=== PATIENT | female | born 1985 | race African-American/Black ===

== ENCOUNTER 2016-06-02 20:28 | Emergency (ER) | payer OTHER ==
--- NOTE | 2016-06-02 20:53 | ER Document Report ---
ED Medical Screen (RME) - General Stated Complaint: STOMACH PAIN Time seen by provider: 20:49 Mode of Arrival: Ambulatory Information source: Patient Notes: 31-year-old female presents to ED for back pain and abdominal pain since last week. States she's been nauseated for the last week with diarrhea no vomiting. Patient denies fever. States she is having some breast tenderness. Last menstrual period she is on Deprol shot. States her next shot is due now. Patient states she is still breast-feeding her son who is a-year-old. I have greeted and performed a rapid initial assessment of this patient. A comprehensive ED assessment and evaluation of the patient, analysis of test results and completion of medical decision making process will be conducted by an additional ED providers. TRAVEL OUTSIDE OF THE [place] IN LAST 30 DAYS: No - Related Data Allergies/Adverse Reactions: No Known Allergies Allergy (Verified 03/02/16 17:45) Past Medical History - Past Medical History Cardiac Medical History: Reports: Hx Hypertension Past Surgical History: Reports: Hx Section - Immunizations Hx Diphtheria, Pertussis, Tetanus Vaccination: Yes Physical Exam - Vital signs Vitals: Temp Pulse Resp BP Pulse Ox 98.8 F 96 16 105/91 H 100 06/02/16 20:45 06/02/16 20:45 06/02/16 20:45 06/02/16 20:45 06/02/16 20:45 Course - Vital Signs Vital signs: Temp Pulse Resp BP Pulse Ox 98.8 F 96 16 105/91 H 100 06/02/16 20:45 06/02/16 20:45 06/02/16 20:45 06/02/16 20:45 06/02/16 20:45
[2016-06-02 21:17] LABS: ABSOLUTE BASOPHILS # (AUTO) 0.1 10^3/uL (0.0-0.2); ABSOLUTE EOSINOPHILS # (AUTO) 0.3 10^3/uL (0.0-0.6); ABSOLUTE LYMPHOCYTES (AUTO) 4.4 10^3/uL (0.5-4.7); ABSOLUTE MONOCYTES (AUTO) 0.9 10^3/uL (0.1-1.4); ABSOLUTE NEUT (AUTO) 4.9 10^3/uL (1.7-8.2); BASOPHILS % (AUTO) 0.8 % (0-2); EOSINOPHILS % (AUTO) 2.4 % (0-6); HEMATOCRIT 39.1 % (36.0-47.0); HEMOGLOBIN 12.9 g/dL (12.0-15.5); HGB HCT DIFFERENCE -0.4; LYMPHOCYTES % (AUTO) 41.4 % (13-45); MEAN CORPUSCULAR HEMOGLOBIN 27.4 pg (27.0-33.4); MEAN CORPUSCULAR HGB CONC 33.1 g/dL (32.0-36.0); MEAN CORPUSCULAR VOLUME 83 fl (80-97); RED BLOOD COUNT 4.72 10^6/uL (3.72-5.28); RED CELL DISTRIBUTION WIDTH 13.6 % (11.5-14.0); SEGMENTED NEUTROPHILS % (AUTO) 46.4 % (42-78); WHITE BLOOD COUNT 10.6 10^3/uL (4.0-10.5)
[2016-06-02 21:18] LABS: APPEARANCE,URINE SLIGHTLY-CLOUDY; BILIRUBIN,URINE NEGATIVE (NEGATIVE); GLUCOSE, URINE NEGATIVE (NEGATIVE); KETONES,URINE NEGATIVE (NEGATIVE); LEUKOCYTE ESTERASE,URINE NEGATIVE (NEGATIVE); NITRITE,URINE NEGATIVE (NEGATIVE); PROTEIN,URINE NEGATIVE (NEGATIVE); URINE SPECIFIC GRAVITY 1.012; UROBILINOGEN,URINE NEGATIVE mg/dL (<2.0)
[2016-06-02 21:34] LABS: ALANINE AMINOTRANSFERASE 29 U/L (9-52); ALBUMIN 4.4 g/dL (3.5-5.0); ALKALINE PHOSPHATASE 106 U/L (38-126); ANION GAP 11 (5-19); ASPARTATE AMINO TRANSFERASE 21 U/L (14-36); BILIRUBIN,TOTAL 0.4 mg/dL (0.2-1.3); BLOOD UREA NITROGEN 12 mg/dL (7-20); CARBON DIOXIDE 27 mmol/L (22-30); CHLORIDE 103 mmol/L (98-107); CREATININE RESULT 0.79 mg/dL (0.52-1.25); GLUCOSE 121 mg/dL (75-110); POTASSIUM 4.1 mmol/L (3.6-5.0); SODIUM 141.1 mmol/L (137-145); TOTAL PROTEIN 7.9 g/dL (6.3-8.2)
[2016-06-02] MEDS ORDERED: ONDANSETRON ODT 4 MG TAB (6 TAB/DSPK) PO PRN (23:01)
--- NOTE | 2016-06-02 23:01 | ER Document Report ---
ED GI/ - General Chief Complaint: Abdominal Pain Stated Complaint: STOMACH PAIN Time seen by provider: 23:01 Mode of Arrival: Ambulatory Information source: Patient TRAVEL OUTSIDE OF THE [place] IN LAST 30 DAYS: No - HPI Patient complains to provider of: Abdominal pain Onset: Last week Timing/Duration: Gradual, Persistent, Waxing and waning Quality of pain: Achy, Cramping Severity at maximum: Mild Severity in ED: Mild Pain Level: 2 Location: Suprapubic Associated symptoms: Diarrhea, Nausea Exacerbated by: Denies Relieved by: Denies Similar symptoms previously: No Recently seen / treated by doctor: No Notes: 06/02/16 23:14 Patient is a 31-year-old female with no past medical history who presents to emergency room complaining of lower abdominal crampy pain with diarrhea that started last week, she reports nausea but no vomiting, she reports breast soreness and fullness, although she is still breast-feeding her 1-year-old, history of a but no other previous surgeries, states her symptoms started after she drank 2 glasses of whole milk which she typically does not drink - Related Data Allergies/Adverse Reactions: No Known Allergies Allergy (Verified 03/02/16 17:45) Past Medical History - General Information source: Patient - Social History Smoking Status: Never Smoker Chew tobacco use (# tins/day): No Frequency of alcohol use: None Drug Abuse: None Family History: Reviewed & Not Pertinent Patient has suicidal ideation: No Patient has homicidal ideation: No - Past Medical History Cardiac Medical History: Reports: Hx Hypertension Renal/ Medical History: Denies: Hx Peritoneal Dialysis Past Surgical History: Reports: Hx Section - Immunizations Hx Diphtheria, Pertussis, Tetanus Vaccination: Yes Review of Systems - Review of Systems Constitutional: No symptoms reported EENT: No symptoms reported Cardiovascular: No symptoms reported Respiratory: No symptoms reported Gastrointestinal: See HPI Genitourinary: No symptoms reported Female Genitourinary: No symptoms reported Musculoskeletal: No symptoms reported Skin: No symptoms reported Hematologic/Lymphatic: No symptoms reported Neurological/Psychological: No symptoms reported -: Yes All other systems reviewed and negative Physical Exam - Vital signs Vitals: Temp Pulse Resp BP Pulse Ox 98.8 F 96 16 105/91 H 100 06/02/16 20:45 06/02/16 20:45 06/02/16 20:45 06/02/16 20:45 06/02/16 20:45 Interpretation: Normal - General General appearance: Appears well, Alert - HEENT Head: Normocephalic, Atraumatic Eyes: Normal Pupils: PERRL - Respiratory Respiratory status: No respiratory distress Chest status: Nontender Breath sounds: Normal Chest palpation: Normal - Cardiovascular Rhythm: Regular Heart sounds: Normal auscultation Murmur: No - Abdominal Inspection: Normal Distension: No distension Bowel sounds: Normal Tenderness: Tender - Mild suprapubic tenderness. No: McBurney's point, Guarding , Rebound Organomegaly: No organomegaly - Back Back: Normal, Nontender - Extremities General upper extremity: Normal inspection, Nontender, Normal color, Normal ROM , Normal temperature General lower extremity: Normal inspection, Nontender, Normal color, Normal ROM , Normal temperature, Normal weight bearing. No: Francisco's sign - Neurological Neuro grossly intact: Yes Cognition: Normal Orientation: AAOx4 [place] Coma Scale Eye Opening: Spontaneous Chuy Coma Scale Verbal: Oriented Chuy Coma Scale Motor: Obeys Commands Chuy Coma Scale Total: 15 Speech: Normal Motor strength normal: LUE, RUE, LLE, RLE Sensory: Normal - Psychological Associated symptoms: Normal affect, Normal mood - Skin Skin Temperature: Warm Skin Moisture: Dry Skin Color: Normal Course - Re-evaluation Re-evalutation: 06/02/16 23:15 Laboratory findings fairly unremarkable, physical exam findings also unremarkable, patient was advised to follow-up with her primary care provider in 2-3 days or return if symptoms worsen, avoid whole milk as it seems to be what trigger her symptoms earlier in the week, she was advised to return if symptoms worsen in any way, patient acknowledges understanding and agreement with this plan - Vital Signs Vital signs: Temp Pulse Resp BP Pulse Ox 98.8 F 96 16 105/91 H 100 06/02/16 20:45 06/02/16 20:45 06/02/16 20:45 06/02/16 20:45 06/02/16 20:45 - Laboratory Result Diagrams: 06/02/16 20:55 06/02/16 20:55 Laboratory results interpreted by me: 06/02/16 06/02/16 20:55 20:55 WBC 10.6 H Glucose 121 H Discharge - Discharge Clinical Impression: Abdominal pain Qualifiers: Abdominal location: generalized Qualified Code(s): R10.84 - Generalized abdominal pain Diarrhea Qualifiers: Diarrhea type: unspecified type Qualified Code(s): R19.7 - Diarrhea, unspecified Condition: Stable Disposition: HOME, SELF-CARE Instructions: Abdominal Pain ([facility]), Antinausea Medication ([facility]) Additional Instructions: Follow up with your primary care provider in one to 2 days. Return to the emergency room immediately if symptoms worsen or any additional concerns.
[2016-06-02 23:44] VITALS: BP 108/84
== END 2016-06-02 23:30 | disposition home or self-care (01) ==
LOC: ER 20:28
DX: R10.84 Generalized abdominal pain (principal); R19.7 Diarrhea, unspecified; R11.0 Nausea; I10 Essential (primary) hypertension
CPT/HCPCS: 36415; 80053; 81001; 84703; 85025; 99284

== ENCOUNTER 2016-10-02 15:13 | Emergency (ER) | payer OTHER ==
--- NOTE | 2016-10-02 15:40 | ER Document Report ---
ED Medical Screen (RME) - General Chief Complaint: Vaginal Bleeding Stated Complaint: VAGINAL BLEEDING Time Seen by Provider: 10/02/16 15:35 Mode of Arrival: Ambulatory Information source: Patient TRAVEL OUTSIDE OF THE [place] IN LAST 30 DAYS: No - HPI Onset: Yesterday Onset/Duration: Sudden, Waxing and waning Quality of pain: Cramping Severity: Mild Associated Symptoms: denies: Chills, Diarrhea, Dizzy/lightheaded, Dysuria, Fever , Nausea Exacerbated by: Denies Relieved by: Denies Similar symptoms previously: Yes - UNKNOWN CAUSE Recently seen / treated by doctor: No Notes: 10/02/16 15:38 LMP ENDED 09/27. - Related Data Smoking: Non-smoker Frequency of alcohol use: None Drug Abuse: None Allergies/Adverse Reactions: No Known Allergies Allergy (Verified 10/02/16 15:23) Past Medical History - General Information source: Patient Last Menstrual Period: 09/26/16 - Social History Cigarette use (# per day): No Chew tobacco use (# tins/day): No Frequency of alcohol use: None Drug Abuse: None Family history: None - Past Medical History Cardiac Medical History: Reports: Hx Hypertension Pulmonary Medical History: Reports: None Neurological Medical History: Reports: None Endocrine Medical History: Reports: None Renal/ Medical History: Reports: None. Denies: Hx Ovarian Cysts, Hx Peritoneal Dialysis Malignancy Medical History: Reports: None GI Medical History: Reports: None Musculoskeltal Medical History: Reports None Psychiatric Medical History: Reports: None Past Surgical History: Reports: Hx Section - Immunizations Hx Diphtheria, Pertussis, Tetanus Vaccination: Yes Review of Systems - Review of Systems Constitutional: No symptoms reported. denies: Chills, Fever EENT: No symptoms reported Cardiovascular: No symptoms reported. denies: Dizziness, Lightheaded Respiratory: No symptoms reported Gastrointestinal: See HPI Female Genitourinary: See HPI Physical Exam - Vital signs Vitals: Temp Pulse Resp BP Pulse Ox 98.1 F 71 18 132/94 H 99 10/02/16 15:24 10/02/16 15:24 10/02/16 15:24 10/02/16 15:24 10/02/16 15:24 Interpretation: Hypertensive. No: Tachycardic, Tachypneic, Febrile - General General appearance: Appears well, Alert In distress: None Course - Vital Signs Vital signs: Temp Pulse Resp BP Pulse Ox 98.1 F 71 18 132/94 H 99 10/02/16 15:24 10/02/16 15:24 10/02/16 15:24 10/02/16 15:24 10/02/16 15:24
[2016-10-02 15:55] LABS: ABSOLUTE EOSINOPHILS # (AUTO) 0.1 10^3/uL (0.0-0.6); ABSOLUTE LYMPHOCYTES (AUTO) 3.4 10^3/uL (0.5-4.7); ABSOLUTE MONOCYTES (AUTO) 0.7 10^3/uL (0.1-1.4); ABSOLUTE NEUT (AUTO) 3.6 10^3/uL (1.7-8.2); BASOPHILS % (AUTO) 0.6 % (0-2); EOSINOPHILS % (AUTO) 1.9 % (0-6); HEMATOCRIT 39.8 % (36.0-47.0); HEMOGLOBIN 13.4 g/dL (12.0-15.5); HGB HCT DIFFERENCE 0.4; LYMPHOCYTES % (AUTO) 42.8 % (13-45); MEAN CORPUSCULAR HEMOGLOBIN 28.2 pg (27.0-33.4); MEAN CORPUSCULAR HGB CONC 33.6 g/dL (32.0-36.0); MEAN CORPUSCULAR VOLUME 84 fl (80-97); MONOCYTES % (AUTO) 8.8 % (3-13); RED BLOOD COUNT 4.73 10^6/uL (3.72-5.28); RED CELL DISTRIBUTION WIDTH 13.9 % (11.5-14.0); SEGMENTED NEUTROPHILS % (AUTO) 45.9 % (42-78); WHITE BLOOD COUNT 7.9 10^3/uL (4.0-10.5)
[2016-10-02 16:14] LABS: ALANINE AMINOTRANSFERASE 19 U/L (9-52); ALBUMIN 4.1 g/dL (3.5-5.0); ALKALINE PHOSPHATASE 94 U/L (38-126); ANION GAP 8 (5-19); ASPARTATE AMINO TRANSFERASE 16 U/L (14-36); BILIRUBIN,DIRECT 0.3 mg/dL (0.0-0.4); BILIRUBIN,TOTAL 0.5 mg/dL (0.2-1.3); BLOOD UREA NITROGEN 9 mg/dL (7-20); CALCIUM 9.9 mg/dL (8.4-10.2); CARBON DIOXIDE 27 mmol/L (22-30); CHLORIDE 106 mmol/L (98-107); CREATININE RESULT 0.77 mg/dL (0.52-1.25); GLUCOSE 82 mg/dL (75-110); POTASSIUM 4.4 mmol/L (3.6-5.0); SODIUM 140.8 mmol/L (137-145); TOTAL PROTEIN 7.8 g/dL (6.3-8.2)
--- NOTE | 2016-10-02 16:14 | ER Document Report ---
ED GI/ - General Chief Complaint: Vaginal Bleeding Stated Complaint: VAGINAL BLEEDING Time Seen by Provider: 10/02/16 15:35 Mode of Arrival: Ambulatory Information source: Patient Notes: 31 yo female c/o heavy vaginal bleeding since September 19, was on depo shot, last dose May 2016. Still bled even on depo. Abstinant since may, spouse is truck loader and unloader. test negative today here in ER, and hgb. is normal. Low back and pelvic pain since yesterday. No vaginal discharge with odor. Chalmy[place] during , same spouse. Urinary urgency and frequency last week. No fever. No n/v/d. TRAVEL OUTSIDE OF THE [place] IN LAST 30 DAYS: No - Related Data Allergies/Adverse Reactions: No Known Allergies Allergy (Verified 10/02/16 15:23) Past Medical History - General Information source: Patient Last Menstrual Period: 09/26/16 - Social History Smoking Status: Unknown if Ever Smoked Cigarette use (# per day): No Chew tobacco use (# tins/day): No Frequency of alcohol use: None Drug Abuse: None Lives with: Spouse/Significant other Family History: Reviewed & Not Pertinent - Past Medical History Cardiac Medical History: Reports: Hx Hypertension Pulmonary Medical History: Reports: None Neurological Medical History: Reports: None Endocrine Medical History: Reports: None Renal/ Medical History: Reports: Other - chlamydia 2 year ago, same spouse. Denies: Hx Ovarian Cysts, Hx Peritoneal Dialysis Malignancy Medical History: Reports: None GI Medical History: Reports: None Musculoskeltal Medical History: Reports None Psychiatric Medical History: Reports: None Past Surgical History: Reports: Hx Section - Immunizations Hx Diphtheria, Pertussis, Tetanus Vaccination: Yes Review of Systems - Review of Systems Constitutional: No symptoms reported EENT: No symptoms reported Cardiovascular: No symptoms reported Respiratory: No symptoms reported Gastrointestinal: No symptoms reported Genitourinary: No symptoms reported Female Genitourinary: See HPI Musculoskeletal: No symptoms reported Skin: No symptoms reported Hematologic/Lymphatic: No symptoms reported Neurological/Psychological: No symptoms reported Physical Exam - Vital signs Vitals: Temp Pulse Resp BP Pulse Ox 98.1 F 71 18 132/94 H 99 10/02/16 15:24 10/02/16 15:24 10/02/16 15:24 10/02/16 15:24 10/02/16 15:24 Interpretation: Normal - General General appearance: Appears well, Alert In distress: None - HEENT Head: Normocephalic, Atraumatic Eyes: Normal Conjunctiva: Normal Pupils: PERRL Mucous membranes: Normal Neck: Supple. No: Lymphadenopathy - Respiratory Respiratory status: No respiratory distress Chest status: Nontender Breath sounds: Normal Chest palpation: Normal - Cardiovascular Rhythm: Regular Heart sounds: Normal auscultation Murmur: No - Abdominal Inspection: Normal Distension: No distension Bowel sounds: Normal Tenderness: Tender - mild suprapubic Organomegaly: No organomegaly - Back Back: Normal, Nontender. No: CVA tenderness - Extremities General upper extremity: Normal inspection, Nontender, Normal color, Normal ROM , Normal temperature General lower extremity: Normal inspection, Nontender, Normal color, Normal ROM , Normal temperature, Normal weight bearing. No: Francisco's sign - Neurological Neuro grossly intact: Yes Cognition: Normal Orientation: AAOx4 Chuy Coma Scale Eye Opening: Spontaneous Chuy Coma Scale Verbal: Oriented Chuy Coma Scale Motor: Obeys Commands Chuy Coma Scale Total: 15 Speech: Normal Motor strength normal: LUE, RUE, LLE, RLE Sensory: Normal - Psychological Associated symptoms: Normal affect, Normal mood - Skin Skin Temperature: Warm Skin Moisture: Dry Skin Color: Normal Skin irregularity: negative: Rash Course - Re-evaluation Re-evalutation: 10/02/16 17:06 pt did not want a pelvic exam. pt has 1 + bacteria in urine 12 wbc, 48 rbc (vag bleed), urine culture is pending. Patient wants to try the Provera to vaginal bleeding. And since her STD cultures were negative in May and she has been abstinent she thinks those will be negative so she will call me back for the results. 10/02/16 17:10 - Vital Signs Vital signs: Temp Pulse Resp BP Pulse Ox 98.1 F 71 18 132/94 H 99 10/02/16 15:24 10/02/16 15:24 10/02/16 15:24 10/02/16 15:24 10/02/16 15:24 - Laboratory Result Diagrams: 10/02/16 15:41 10/02/16 15:41 Laboratory results interpreted by me: 10/02/16 16:25 Urine Protein 30 H Urine Blood LARGE H Discharge - Discharge Clinical Impression: Vaginal bleeding Urinary tract infection Qualifiers: Urinary tract infection type: site unspecified Hematuria presence: without hematuria Qualified Code(s): N39.0 - Urinary tract infection, site not specified Condition: Good Disposition: HOME, SELF-CARE Instructions: Urinary Tract Infection ([facility]), Cephalexin ([facility]), Vaginal Bleeding ([facility]), [facility] Additional Instructions: plenty of fluids see obgyn about the persistant vaginal bleeding to er if worse call me in 2 hours about the STD culture results [id number] urine culture is pending Please complete the patient satisfaction survey if you get one, and return it.. If you do not receive a survey, then you can go to the [facility] website, [email or web address] and place your comments about your very good care. Thank you very much. It was a pleasure being your medical provider today. Prescriptions: Cephalexin Monohydrate [Keflex 500 mg Capsule] 500 mg PO QID #28 capsule Medroxyprogesterone Acet [Provera 10 Mg Tablet] 10 mg PO DAILY #7 tablet
[2016-10-02 16:58] LABS: APPEARANCE,URINE SLIGHTLY-CLOUDY; BILIRUBIN,URINE NEGATIVE (NEGATIVE); GLUCOSE, URINE NEGATIVE (NEGATIVE); KETONES,URINE NEGATIVE (NEGATIVE); LEUKOCYTE ESTERASE,URINE NEGATIVE (NEGATIVE); NITRITE,URINE NEGATIVE (NEGATIVE); PROTEIN,URINE 30 mg/dL (NEGATIVE); URINE SPECIFIC GRAVITY 1.012; UROBILINOGEN,URINE NEGATIVE mg/dL (<2.0)
[2016-10-02 17:20] VITALS: BP 127/82
[2016-10-02 18:27] LABS: CHLAM PCR NOT DETECTED (NOT DETECT)
== END 2016-10-02 17:20 | disposition home or self-care (01) ==
LOC: ER 15:13
DX: N39.0 Urinary tract infection, site not specified (principal); N93.9 Abnormal uterine and vaginal bleeding, unspecified; M54.5 Low back pain; R10.2 Pelvic and perineal pain; R39.15 Urgency of urination; R35.0 Frequency of micturition
CPT/HCPCS: 36415; 80053; 81001; 84703; 85025; 87086; 87491; 87591; 99284

== ENCOUNTER 2017-03-16 13:06 | Emergency (ER) | payer OTHER ==
--- NOTE | 2017-03-16 13:36 | ER Document Report ---
ED General - General Chief Complaint: Abdominal Pain Stated Complaint: STOMACH PAIN Time Seen by Provider: 03/16/17 13:35 Mode of Arrival: Ambulatory Information source: Patient Notes: 31-year-old female presents with one-week duration of epigastric pain down to her rectum. Patient denies any fevers or chills denies any nausea vomiting or diarrhea. Patient notes when she wipes she notes bright red blood as well. Patient denies any diarrhea admits to intermittent constipation and bad taste in her mouth TRAVEL OUTSIDE OF THE [place] IN LAST 30 DAYS: No - HPI Onset: Other - 1 week duration Onset/Duration: Persistent Quality of pain: Burning Severity: Mild Pain Level: 1 Associated symptoms: Other Exacerbated by: Denies Relieved by: Denies Similar symptoms previously: No Recently seen / treated by doctor: No - Related Data Allergies/Adverse Reactions: No Known Allergies Allergy (Verified 03/16/17 13:09) Past Medical History - Social History Smoking Status: Never Smoker Cigarette use (# per day): No Chew tobacco use (# tins/day): No Smoking Education Provided: No Frequency of alcohol use: None Drug Abuse: None Family History: Reviewed & Not Pertinent Patient has suicidal ideation: No Patient has homicidal ideation: No - Past Medical History Cardiac Medical History: Reports: Hx Hypertension - no meds Renal/ Medical History: Denies: Hx Ovarian Cysts, Hx Peritoneal Dialysis Past Surgical History: Reports: Hx Section - Immunizations Hx Diphtheria, Pertussis, Tetanus Vaccination: Yes Review of Systems - Review of Systems Notes: REVIEW OF SYSTEMS: CONSTITUTIONAL : Denies fever, chills, or sweats. Denies recent illness. EENT: Denies eye, ear, throat, or mouth pain or symptoms. Denies nasal or sinus congestion or discharge. Denies throat, tongue, or mouth swelling or difficulty swallowing. CARDIOVASCULAR: Denies chest pain. Denies palpitations or racing or irregular heart beat. Denies ankle edema. RESPIRATORY: Denies cough, cold, or chest congestion. Denies shortness of breath, difficulty breathing, or wheezing. GASTROINTESTINAL: D admits to abdominal pain admits rectal bleeding GENITOURINARY: Denies difficulty urinating, painful urination, burning, frequency, blood in urine, or discharge. FEMALE GENITOURINARY: Denies vaginal bleeding, heavy or abnormal periods, irregular periods. Denies vaginal discharge or odor. MUSCULOSKELETAL: Denies back or neck pain or stiffness. Denies joint pain or swelling. SKIN: Denies rash, lesions or sores. HEMATOLOGIC : Denies easy bruising or bleeding. LYMPHATIC: Denies swollen, enlarged glands. NEUROLOGICAL: Denies confusion or altered mental status. Denies passing out or loss of consciousness. Denies dizziness or lightheadedness. Denies headache. Denies weakness or paralysis or loss of use of either side. Denies problems with gait or speech. Denies sensory loss, numbness, or tingling. Denies seizures. PSYCHIATRIC: Denies anxiety or stress. Denies depression, suicidal ideation, or homicidal ideation. ALL OTHER SYSTEMS REVIEWED AND NEGATIVE. PHYSICAL EXAMINATION: GENERAL: Well-appearing, well-nourished and in no acute distress. HEAD: Atraumatic, normocephalic. EYES: Pupils equal round and reactive to light, extraocular movements intact, conjunctiva are normal. ENT: Nares patent, oropharynx clear without exudates. Moist mucous membranes. NECK: Normal range of motion, supple without lymphadenopathy LUNGS: Breath sounds clear to auscultation bilaterally and equal. No wheezes rales or rhonchi. HEART: Regular rate and rhythm without murmurs ABDOMEN: Soft, nontender, nondistended abdomen. No guarding, no rebound. No masses appreciated. Female : With nurse Carmen in the room rectal examination performed external hemorrhoids nonthrombosed noted no fissure Musculoskeletal: Normal range of motion, no pitting or edema. No cyanosis. NEUROLOGICAL: Cranial nerves grossly intact. Normal speech, normal gait. Normal sensory, motor exams PSYCH: Normal mood, normal affect. SKIN: Warm, Dry, normal turgor, no rashes or lesions noted. Dictation was performed using [employer] voice recognition software Physical Exam - Vital signs Vitals: Temp Pulse Resp BP Pulse Ox 97.4 F 67 16 130/83 H 100 03/16/17 14:57 03/16/17 14:57 03/16/17 14:57 03/16/17 14:57 03/16/17 14:57 Course - Re-evaluation Re-evalutation: 03/16/17 15:35 Patient's presentation is quite benign, she has been having symptoms for 1 week and has had no fever no vomiting her lab work is completely normal therefore a very low suspicion for any life-threatening issues patient will be treated for gastric reflux symptoms and given follow-up with primary care for further evaluation care After performing a Medical Screening Examination, I estimate there is LOW risk for ACUTE APPENDICITIS, BOWEL OBSTRUCTION, ACUTE CHOLECYSTITIS, PERFORATED DIVERTICULITIS, INCARCERATED HERNIA, PANCREATITIS, PELVIC INFLAMMATORY DISEASE, PERFORATED ULCER, ECTOPIC , or TUBO-OVARIAN ABSCESS, thus I consider the discharge disposition reasonable. Also, there is no evidence or peritonitis , sepsis, or toxicity. I have reevaluated this patient multiple times and no significant life threatening changes are noted. The patient and I have discussed the diagnosis and risks, and we agree with discharging home with close follow-up with the understanding that symptoms and presentations can change. We also discussed returning to the Emergency Department immediately if new or worsening symptoms occur. We have discussed the symptoms which are most concerning (e.g., bloody stool, fever, changing or worsening pain, vomiting) that necessitate immediate return. - Vital Signs Vital signs: Temp Pulse Resp BP Pulse Ox 97.4 F 67 16 130/83 H 100 03/16/17 14:57 03/16/17 14:57 03/16/17 14:57 03/16/17 14:57 03/16/17 14:57 - Laboratory Result Diagrams: 03/16/17 13:40 03/16/17 13:40 Laboratory results interpreted by me: 03/16/17 13:40 Seg Neutrophils % 41.4 L Discharge - Discharge Clinical Impression: External hemorrhoid Abdominal pain Qualifiers: Abdominal location: generalized Qualified Code(s): R10.84 - Generalized abdominal pain Condition: Stable Disposition: HOME, SELF-CARE Instructions: Abdominal Pain ([facility]) Additional Instructions: Follow up with your physician tomorrow for further care or return to the ED IMMEDIATELY if symptoms worsen or new concerns occur. If you cannot afford to follow up with your primary care physician a list of low cost clinics have been provided at the end of your discharge papers as well. Prescriptions: Dicyclomine HCl [Bentyl 20 mg Tablet] 20 mg PO QID #40 tablet Famotidine [Pepcid 20 mg Tablet] 20 mg PO DAILY #30 tablet
[2017-03-16 14:14] LABS: APPEARANCE,URINE SLIGHTLY-CLOUDY; BILIRUBIN,URINE NEGATIVE (NEGATIVE); COLOR,URINE YELLOW; GLUCOSE, URINE NEGATIVE (NEGATIVE); KETONES,URINE NEGATIVE (NEGATIVE); LEUKOCYTE ESTERASE,URINE NEGATIVE (NEGATIVE); NITRITE,URINE NEGATIVE (NEGATIVE); PROTEIN,URINE NEGATIVE (NEGATIVE); URINE SPECIFIC GRAVITY 1.014; UROBILINOGEN,URINE NEGATIVE mg/dL (<2.0)
[2017-03-16 14:28] LABS: ALANINE AMINOTRANSFERASE 28 U/L (9-52); ALBUMIN 4.4 g/dL (3.5-5.0); ALKALINE PHOSPHATASE 100 U/L (38-126); ANION GAP 10 (5-19); ASPARTATE AMINO TRANSFERASE 19 U/L (14-36); BILIRUBIN,DIRECT 0.2 mg/dL (0.0-0.4); BILIRUBIN,TOTAL 0.2 mg/dL (0.2-1.3); BLOOD UREA NITROGEN 11 mg/dL (7-20); CARBON DIOXIDE 28 mmol/L (22-30); CHLORIDE 104 mmol/L (98-107); GLUCOSE 89 mg/dL (75-110); LIPASE 96.6 U/L (23-300); POTASSIUM 4.2 mmol/L (3.6-5.0); SODIUM 142.4 mmol/L (137-145); TOTAL PROTEIN 7.8 g/dL (6.3-8.2)
[2017-03-16 14:31] LABS: ABSOLUTE EOSINOPHILS # (AUTO) 0.1 10^3/uL (0.0-0.6); ABSOLUTE LYMPHOCYTES (AUTO) 2.8 10^3/uL (0.5-4.7); ABSOLUTE MONOCYTES (AUTO) 0.8 10^3/uL (0.1-1.4); ABSOLUTE NEUT (AUTO) 2.6 10^3/uL (1.7-8.2); BASOPHILS % (AUTO) 0.4 % (0-2); EOSINOPHILS % (AUTO) 2.2 % (0-6); HEMATOCRIT 39.1 % (36.0-47.0); HEMOGLOBIN 13.3 g/dL (12.0-15.5); LYMPHOCYTES % (AUTO) 43.3 % (13-45); MEAN CORPUSCULAR HEMOGLOBIN 27.5 pg (27.0-33.4); MEAN CORPUSCULAR VOLUME 81 fl (80-97); MONOCYTES % (AUTO) 12.7 % (3-13); PLATELET COUNT 260 10^3/uL (150-450); RED BLOOD COUNT 4.82 10^6/uL (3.72-5.28); RED CELL DISTRIBUTION WIDTH 13.8 % (11.5-14.0); SEGMENTED NEUTROPHILS % (AUTO) 41.4 % (42-78); TOTAL CELLS COUNTED % (AUTO) 100 %; WHITE BLOOD COUNT 6.4 10^3/uL (4.0-10.5)
[2017-03-16 14:58] VITALS: BP 130/83
== END 2017-03-16 14:57 | disposition home or self-care (01) ==
LOC: ER 13:06
DX: K64.4 Residual hemorrhoidal skin tags (principal); R10.84 Generalized abdominal pain
CPT/HCPCS: 36415; 80053; 81001; 81025; 83690; 85025; 99284

== ENCOUNTER 2017-04-04 11:42 | Emergency (ER) | payer SELFPAY ==
--- NOTE | 2017-04-04 12:29 | ER Document Report ---
ED Medical Screen (RME) - General TRAVEL OUTSIDE OF THE [place] IN LAST 30 DAYS: No <KENYON PEREZ - Last Filed: 04/04/17 12:27> <ALFREDO JUSTICE - Last Filed: 04/04/17 14:14> - General Chief Complaint: Abdominal Pain Stated Complaint: STOMACH PAIN Time Seen by Provider: 04/04/17 12:20 Notes: 31-year-old female patient comes emergency room complaining of right lateral rib pain after slipping on a ramp and falling on Monday. She did not start having pain until the following evening. She also complains of sternal type chest pain, was seen here on 03/16/2017 for the post same pain. At that time it appears she was felt to have epigastric and reflux type pain. She is also found to have an external hemorrhoid. Since then she has done home hCG that was positive. Her last Depakote shot was in May 2016. Her last menstrual period might have been in December 2016. Past surgical history is positive for C -section. She is on no medications. She does not drink or smoke. Brief exam shows tenderness to the sternum, but no tenderness in the epigastric abdomen or anywhere in the abdomen. Her right lateral inferior rib area is a little tender to palpate. She also added an additional complaint stating early this morning she felt like she could not swallow choked and saw some blood. I have greeted and performed a rapid initial assessment of this patient. A comprehensive ED assessment and evaluation of the patient, analysis of test results and completion of the medical decision making process will be conducted by additional ED providers. (KENYON PEREZ) - Related Data Allergies/Adverse Reactions: No Known Allergies Allergy (Verified 04/04/17 11:45) Home Medications: Current Home Medications No Home Medications 04/04/17 [History] Past Medical History - Social History Chew tobacco use (# tins/day): No Frequency of alcohol use: None Drug Abuse: None Family history: None - Past Medical History Cardiac Medical History: Reports: Hx Hypertension - no meds Renal/ Medical History: Denies: Hx Ovarian Cysts, Hx Peritoneal Dialysis Past Surgical History: Reports: Hx Section - Immunizations Hx Diphtheria, Pertussis, Tetanus Vaccination: Yes <KENYON PEREZ - Last Filed: 04/04/17 12:27> - Vital signs Vitals: Temp Pulse Resp BP Pulse Ox 98.2 F 89 20 134/77 H 100 04/04/17 11:47 04/04/17 11:47 04/04/17 11:47 04/04/17 11:47 04/04/17 11:47 Course - Laboratory Result Diagrams: 04/04/17 12:35 04/04/17 12:35 <ALFREDO JUSTICE - Last Filed: 04/04/17 14:14> - Vital Signs Vital signs: Temp Pulse Resp BP Pulse Ox 98.2 F 89 20 134/77 H 100 04/04/17 11:47 04/04/17 11:47 04/04/17 11:47 04/04/17 11:47 04/04/17 11:47 - Laboratory Laboratory results interpreted by me: 04/04/17 04/04/17 04/04/17 12:35 12:35 12:35 RDW 14.1 H Beta HCG, Quant 3898.00 H Urine Ascorbic Acid 20 H
[2017-04-04 12:52] LABS: ABSOLUTE EOSINOPHILS # (AUTO) 0.2 10^3/uL (0.0-0.6); ABSOLUTE LYMPHOCYTES (AUTO) 2.8 10^3/uL (0.5-4.7); ABSOLUTE MONOCYTES (AUTO) 0.7 10^3/uL (0.1-1.4); ABSOLUTE NEUT (AUTO) 4.3 10^3/uL (1.7-8.2); BASOPHILS % (AUTO) 0.4 % (0-2); EOSINOPHILS % (AUTO) 1.9 % (0-6); HEMATOCRIT 36.2 % (36.0-47.0); HEMOGLOBIN 12.5 g/dL (12.0-15.5); LYMPHOCYTES % (AUTO) 34.7 % (13-45); MEAN CORPUSCULAR HEMOGLOBIN 28.1 pg (27.0-33.4); MEAN CORPUSCULAR HGB CONC 34.4 g/dL (32.0-36.0); MEAN CORPUSCULAR VOLUME 82 fl (80-97); MONOCYTES % (AUTO) 8.7 % (3-13); PLATELET COUNT 301 10^3/uL (150-450); RED BLOOD COUNT 4.43 10^6/uL (3.72-5.28); RED CELL DISTRIBUTION WIDTH 14.1 % (11.5-14.0); SEGMENTED NEUTROPHILS % (AUTO) 54.3 % (42-78); TOTAL CELLS COUNTED % (AUTO) 100 %; WHITE BLOOD COUNT 7.9 10^3/uL (4.0-10.5)
[2017-04-04 12:58] LABS: APPEARANCE,URINE CLEAR; BILIRUBIN,URINE NEGATIVE (NEGATIVE); COLOR,URINE YELLOW; GLUCOSE, URINE NEGATIVE (NEGATIVE); KETONES,URINE NEGATIVE (NEGATIVE); LEUKOCYTE ESTERASE,URINE NEGATIVE (NEGATIVE); NITRITE,URINE NEGATIVE (NEGATIVE); PROTEIN,URINE NEGATIVE (NEGATIVE); URINE SPECIFIC GRAVITY 1.012; UROBILINOGEN,URINE NEGATIVE mg/dL (<2.0)
[2017-04-04 13:15] LABS: ALANINE AMINOTRANSFERASE 27 U/L (9-52); ALBUMIN 4.1 g/dL (3.5-5.0); ALKALINE PHOSPHATASE 75 U/L (38-126); ANION GAP 10 (5-19); ASPARTATE AMINO TRANSFERASE 18 U/L (14-36); BILIRUBIN,DIRECT 0.2 mg/dL (0.0-0.4); BILIRUBIN,TOTAL 0.3 mg/dL (0.2-1.3); BLOOD UREA NITROGEN 7 mg/dL (7-20); CARBON DIOXIDE 28 mmol/L (22-30); CHLORIDE 105 mmol/L (98-107); GLUCOSE 92 mg/dL (75-110); POTASSIUM 4.1 mmol/L (3.6-5.0); SODIUM 143.4 mmol/L (137-145); TOTAL PROTEIN 7.2 g/dL (6.3-8.2)
[2017-04-04] MEDS ORDERED: FAMOTIDINE 20 MG TABLET PO ONE (14:14)
--- NOTE | 2017-04-04 14:37 | RADIOLOGY REPORT (SQ) ---
EXAM DESCRIPTION: RIBS RIGHT W/PA CHEST COMPLETED DATE/TIME: 04/04/2017 2:27 pm REASON FOR STUDY: Right oblique ribs with PA chest per radiology COMPARISON: None. TECHNIQUE: Frontal view of the chest and additional oblique view of the right ribs acquired. NUMBER OF VIEWS: PA chest 1 rib detail oblique view LIMITATIONS: None. Patient was shielded over the abdomen pelvis during the exposure. FINDINGS: FRONTAL CXR: No pneumothorax. No pleural effusion. No atelectasis or infiltrates. RIBS: No displaced rib fractures. No lytic or blastic bony lesions. OTHER: No other significant finding. IMPRESSION: NO PNEUMOTHORAX. NO DISPLACED RIB FRACTURES. COMMENT: SITE OF TRAUMA/COMPLAINT MARKED/STAMP COMPLETED: Yes TECHNICAL DOCUMENTATION: JOB ID: [id number] [employer]- All Rights Reserved
--- NOTE | 2017-04-04 15:29 | ER Document Report ---
ED GI/ - General Chief Complaint: Abdominal Pain Stated Complaint: STOMACH PAIN Time Seen by Provider: 04/04/17 12:20 Mode of Arrival: Ambulatory Information source: Patient Notes: 31-year-old female presented to ED for complaint of right lateral rib pain after slipping on the ramp and fallen on Monday. She states she did not have pain until the next evening. She states she also has epigastric pain that has been going on since 1227 it is the same pain she has had her reflux pain. She states she has had some reflux medicines in the past but they have never helped. She states she has done a home test and it was positive. She states her last Depakote shot was in May 2016 and her last period was in December 2016. She states she has had a previous and she is not taking any medicines except for Tylenol. TRAVEL OUTSIDE OF THE [place] IN LAST 30 DAYS: No - HPI Patient complains to provider of: , Other - Right rib pains and epigastric pain Onset: Other - Fell on Monday pain started on Monday epigastric pain is been off and on since February Timing/Duration: Persistent Quality of pain: Achy, Sharp Severity at maximum: Moderate Severity in ED: Moderate Pain Level: 4 Location: Epigastric, Other - Right ribs Vaginal bleeding (Compared to normal period): None Menstrual period history: LMP: December 2016 Associated symptoms: Other - Right rib pain and epigastric pain Exacerbated by: Movement, Walking, Coughing, Deep breathing Relieved by: Denies Similar symptoms previously: Yes Recently seen / treated by doctor: No - Related Data Allergies/Adverse Reactions: No Known Allergies Allergy (Verified 04/04/17 11:45) Home Medications: Current Home Medications No Home Medications 04/04/17 [History] Past Medical History - General Information source: Patient - Social History Smoking Status: Never Smoker Cigarette use (# per day): No Chew tobacco use (# tins/day): No Smoking Education Provided: No Frequency of alcohol use: None Drug Abuse: None Occupation: None Lives with: Family Family History: Hypertension. denies: Arthritis, CAD, COPD, CVA, DM, Hyperlipidemia, Malignancy, Thyroid Disfunction Patient has suicidal ideation: No Patient has homicidal ideation: No - Past Medical History Cardiac Medical History: Reports: Hx Hypertension - no meds Pulmonary Medical History: Reports: None EENT Medical History: Reports: None Neurological Medical History: Reports: None Renal/ Medical History: Reports: None Malignancy Medical History: Reports: None GI Medical History: Reports: Hx Gastroesophageal Reflux Disease Musculoskeltal Medical History: Reports Hx Musculoskeletal Trauma Skin Medical History: Reports None Psychiatric Medical History: Reports: None Traumatic Medical History: Reports: None Past Surgical History: Reports: Hx Section - Immunizations Immunizations up to date: Yes Hx Diphtheria, Pertussis, Tetanus Vaccination: Yes Review of Systems - Review of Systems Constitutional: No symptoms reported EENT: No symptoms reported Cardiovascular: No symptoms reported Respiratory: No symptoms reported Gastrointestinal: Other - Epigastric pain Genitourinary: No symptoms reported Female Genitourinary: Musculoskeletal: Other - Right rib pain Skin: No symptoms reported Hematologic/Lymphatic: No symptoms reported Neurological/Psychological: No symptoms reported -: Yes All other systems reviewed and negative Physical Exam - Vital signs Vitals: Temp Pulse Resp BP Pulse Ox 98.2 F 89 20 134/77 H 100 04/04/17 11:47 04/04/17 11:47 04/04/17 11:47 04/04/17 11:47 04/04/17 11:47 Interpretation: Normal - General General appearance: Appears well, Alert - HEENT Head: Normocephalic, Atraumatic Eyes: Normal Pupils: PERRL - Respiratory Respiratory status: No respiratory distress Chest status: Tender, Pain on movement, Pain with cough, Pain with deep breathing. No: No pleuritic chest pain, Wounds, Accessory muscle use, Prolonged expirations, Splinting Breath sounds: Normal Chest palpation: Normal - Cardiovascular Rhythm: Regular Heart sounds: Normal auscultation Murmur: No - Abdominal Inspection: Normal Distension: No distension Bowel sounds: Hyperactive Tenderness: Tender - Epigastric area Organomegaly: No organomegaly - Back Back: Normal, Nontender - Extremities General upper extremity: Normal inspection, Nontender, Normal color, Normal ROM , Normal temperature General lower extremity: Normal inspection, Nontender, Normal color, Normal ROM , Normal temperature, Normal weight bearing. No: Francisco's sign - Neurological Neuro grossly intact: Yes Cognition: Normal Orientation: AAOx4 [place] Coma Scale Eye Opening: Spontaneous [place] Coma Scale Verbal: Oriented [place] Coma Scale Motor: Obeys Commands [place] Coma Scale Total: 15 Speech: Normal Motor strength normal: LUE, RUE, LLE, RLE Sensory: Normal - Psychological Associated symptoms: Normal affect, Normal mood - Skin Skin Temperature: Warm Skin Moisture: Dry Skin Color: Normal Course - Re-evaluation Re-evalutation: 04/04/17 17:27 X-ray discussed with patient and written report given to patient. Before doing the x-ray I called radiologist to get the least number of views for where her rib pain is and she told me to do a oblique right ribs with PA chest and that is what was completed. There were no rib fractures. She was treated with Pepcid for her reflux and instructed to please follow-up with the [facility]. - Vital Signs Vital signs: Temp Pulse Resp BP Pulse Ox 97.5 F 99 15 117/93 H 99 04/04/17 15:47 04/04/17 15:47 04/04/17 15:47 04/04/17 15:47 04/04/17 15:47 - Laboratory Result Diagrams: 04/04/17 12:35 04/04/17 12:35 Laboratory results interpreted by me: 04/04/17 04/04/17 04/04/17 12:35 12:35 12:35 RDW 14.1 H Beta HCG, Quant 3898.00 H Urine Ascorbic Acid 20 H - Diagnostic Test Radiology reviewed: Image reviewed, Reports reviewed Discharge - Discharge Clinical Impression: Qualifiers: Weeks of gestation: less than 8 weeks Qualified Code(s): Z3A.01 - Less than 8 weeks gestation of Contusion of rib on right side Qualifiers: Encounter type: initial encounter Qualified Code(s): S20.211A - Contusion of right front wall of thorax, initial encounter Fall Qualifiers: Encounter type: initial encounter Qualified Code(s): W19.XXXA - Unspecified fall, initial encounter GERD (gastroesophageal reflux disease) Qualifiers: Esophagitis presence: esophagitis presence not specified Qualified Code(s): K21.9 - Gastro-esophageal reflux disease without esophagitis Condition: Stable Disposition: HOME, SELF-CARE Instructions: Family Physicians / Practices Additional Instructions: Reflux Disease (GERD) Gastro-Esophageal Reflux Disease (GERD) is caused by stomach acid refluxing back up into the esophagus. The valve at the end of the esophagus may be weak. This is common in persons with a hiatal hernia. GERD symptoms can include indigestion, chest pain, heartburn, or food "sticking." Certain foods, alcohol, and aspirin can make GERD worse. Treatment depends on the severity. Usually, antacids or acid-suppressing medicines are used. When the esophagus is acutely inflamed, the physician will often prescribe membrane-protective drugs such as Carafate. Some patients benefit from medication such as Reglan that tightens the valve at the top of the stomach. Avoid those foods that bring on your symptoms. For many people, these foods are coffee, chocolate, onions, garlic, and carbonated drinks. Don't use alcohol, aspirin, caffeine, or tobacco. Don't eat late at night -- within 4 hours of bedtime. Don't over-eat. If necessary, elevate the head of your bed about 4 inches so that stomach acid will not roll up into your esophagus. Call the doctor if you develop severe chest pain, inability to swallow fluids, fever, or worsening symptoms. Rib Contusion You have been diagnosed as having bruised ribs. It will usually take a few weeks for these injured ribs to heal. You should cough or take a deep breath at least every hour or two to prevent lung complications. You should not engage in any strenuous physical activity until released by your physician. The usual rule is "if it hurts, don' t do it." Return if you develop any of the following: (1) Fever or chills. (2) Persistent cough, coughing up blood, or shortness of breath. (3) Increasing pain. (4) Weakness, lightheadedness, or fainting. Acetaminophen Acetaminophen may be taken for pain relief or fever control. It's much safer than aspirin, offering a wider range of "safe" dosages. It is safe during . Some brand names are Tylenol, Panadol, Datril, Anacin 3, Tempra, and Liquiprin. Acetaminophen can be repeated every four hours. The following are maximum recommended dosages: WEIGHT Dose Drops Elixir Chewable( 80mg) (LBS.) drprs=droppers tsp=teaspoon 6 40 mg .4 ml (1/2) 6-11 80 mg .8 ml (full) 1/2 tsp 1 tab 12-16 120 mg 1 1/2 drprs 3/4 tsp 1 1/2 tabs 17-23 160 mg 2 drprs 1 tsp 2 tabs 24-30 240 mg 3 drprs 1 1/2 tsp 3 tabs 30-35 320 mg 2 tsp 4 tabs 36-41 360 mg 2 1/4 tsp 4 1 /2 tabs 42-47 400 mg 2 1/2 tsp 5 tabs 48-53 480 mg 3 tsp 6 tabs 54-59 520 mg 3 1/4 tsp 6 1 /2 tabs 60-64 560 mg 3 1/2 tsp 7 tabs 65-70 600 mg 3 3/4 tsp 7 1 /2 tabs 71-76 640 mg 4 tsp 8 tabs 77-82 720 mg 4 1/2 tsp 9 tabs 83-88 800 mg 5 tsp 10 tabs >89 pounds or adults 650 mg to 900 mg Acetaminophen can be repeated every four hours. Maximum daily dose not to exceed 4000 mg. These maximum recommended dosages are slightly higher than the dosages written on the product container, but these dosages are very safe and well below the toxic dosage for acetaminophen. ICE PACKS: Apply ice packs frequently against the painful area. Many different schedules are recommended, such as "20 minutes on, 20 minutes off" or "one hour ice, two hours rest." If you need to work, you may need to go longer between ice treatments. You should plan to have the area ice packed AT LEAST one fourth of the time. The ice should be applied over the wrap, tape, or splint, or over a layer of cloth -- not directly against the skin. Some ice bags have a built-in cloth and can be put directly on the skin. WARM PACKS: After approximately two days, apply gentle heat (such as a heating pad or hot water bottle) for about 20 to 30 minutes about every two hours -- at least four times daily. Warmth and elevation will help you make a more rapid recovery , and will ease the pain considerably. Do not use HOT heat, and never apply heat for longer than 30 minutes. The continuous heat can invisibly damage skin and muscles -- even when no burn is seen on the surface. Damaged muscles can make you MORE sore. Acid-Suppressing Medication You have a prescription for medicine which reduces the stomach's secretion of acid. Examples include Zantac, Tagament, and Pepcid. These drugs are often used to allow healing of ulcers or esophagitis. They may be needed to prevent recurrence of ulcers in some patients, or to prevent damage from acid reflux in the esophagus. Take all medication as prescribed, even after the pain is gone. Regular antacids may be added as needed if you have symptoms while taking this medicine. These medications sometimes are prescribed for allergic reactions because they have anti-histaminic effects and relieve the rash and itching of the reaction. There are usually no side effects from this medication. But, in rare cases and particularly in the elderly, serious problems can occur. Contact your doctor if there is fever, rash, hallucinations, confusion, or unusual bruising. Contact your doctor at once if you develop lightheadedness, black or bloody stool, or bloody vomitus. FOLLOW-UP CARE: If you have been referred to a physician for follow-up care, call the physician s office for an appointment as you were instructed or within the next two days. If you experience worsening or a significant change in your symptoms, notify the physician immediately or return to the Emergency Department at any time for re-evaluation. Forms: Elevated Blood Pressure
[2017-04-04 15:48] VITALS: BP 117/93
== END 2017-04-04 15:48 | disposition home or self-care (01) ==
LOC: ER 11:42
DX: S20.211A Contusion of right front wall of thorax, initial encounter (principal); K21.9 Gastro-esophageal reflux disease without esophagitis; R07.81 Pleurodynia; R10.13 Epigastric pain; W01.0XXA Fall on same level from slipping, tripping and stumbling without subsequent striking against object, initial encounter; Z3A.01 Less than 8 weeks gestation of pregnancy
CPT/HCPCS: 36415; 80053; 81001; 84702; 85025; 99284

== ENCOUNTER 2017-04-09 10:30 | Emergency (ER) | payer SELFPAY ==
--- NOTE | 2017-04-09 11:07 | ER Document Report ---
ED Medical Screen (RME) - General Chief Complaint: Vag Bleeding, +preg <12wks Stated Complaint: VAGINAL BLEEDING Time Seen by Provider: 04/09/17 11:04 Mode of Arrival: Ambulatory Information source: Patient Notes: 31-year-old female 3 para 1 (1 miscarriage), approximately 6 weeks by dates presents to the emergency room with vaginal bleeding. The patient denies any significant abdominal pain. TRAVEL OUTSIDE OF THE [place] IN LAST 30 DAYS: No - HPI Onset: Yesterday Onset/Duration: Gradual Quality of pain: Cramping Severity: None Pain Level: Denies Associated Symptoms: denies: Chest pain, Shortness of breath Exacerbated by: Denies Relieved by: Denies Similar symptoms previously: No Recently seen / treated by doctor: No - Related Data Smoking: Non-smoker Frequency of alcohol use: None Drug Abuse: None Allergies/Adverse Reactions: No Known Allergies Allergy (Verified 04/09/17 10:31) Past Medical History - General Information source: Patient - Social History Cigarette use (# per day): No Chew tobacco use (# tins/day): No Frequency of alcohol use: None Drug Abuse: None Lives with: Family Family history: None - Past Medical History Cardiac Medical History: Reports: Hx Hypertension - no meds Pulmonary Medical History: Reports: None Neurological Medical History: Reports: None Endocrine Medical History: Reports: None Renal/ Medical History: Denies: Hx Ovarian Cysts, Hx Peritoneal Dialysis GI Medical History: Reports: Hx Gastroesophageal Reflux Disease Musculoskeltal Medical History: Reports Hx Musculoskeletal Trauma Past Surgical History: Reports: Hx Section - Immunizations Immunizations up to date: Yes Hx Diphtheria, Pertussis, Tetanus Vaccination: Yes Review of Systems - Review of Systems Constitutional: No symptoms reported EENT: No symptoms reported Cardiovascular: No symptoms reported Respiratory: No symptoms reported Gastrointestinal: No symptoms reported Genitourinary: No symptoms reported Female Genitourinary: See HPI Musculoskeletal: No symptoms reported Skin: No symptoms reported Hematologic/Lymphatic: No symptoms reported Neurological/Psychological: No symptoms reported Physical Exam - Vital signs Vitals: Temp Pulse Resp BP Pulse Ox 98.4 F 80 16 138/86 H 98 04/09/17 10:42 04/09/17 10:42 04/09/17 10:42 04/09/17 10:42 04/09/17 10:42 Notes: Physical exam: GENERAL: 31-year-old female, alert and oriented 3, no acute distress HEAD: Atraumatic, normocephalic. EYES: Pupils equal round and reactive to light, extraocular movements intact, sclera anicteric, conjunctiva are normal. ENT: TMs normal, nares patent, oropharynx clear without exudates. Moist mucous membranes. NECK: Normal range of motion, supple without obvious mass or JVD. LUNGS: Breath sounds clear to auscultation bilaterally and equal. No wheezes rales or rhonchi. HEART: Regular rate and rhythm without murmurs, rubs or gallops. ABDOMEN: Soft, normoactive bowel sounds. No tenderness to palpation. No guarding, no rebound. No masses appreciated. EXTREMITIES: Normal range of motion, no pitting or edema. No clubbing or cyanosis. NEUROLOGICAL: Cranial nerves II through XII grossly intact. Normal speech, moving all extremities. PSYCH: Normal mood, normal affect. SKIN: Warm, Dry, normal turgor, no rashes or lesions noted. Course - Re-evaluation Re-evalutation: 04/09/17 17:13 I discussed the ultrasound report with Dr. Cage who is covering for the [facility]. The concern is that given the high beta quant, that the is abnormal. The patient's abdomen is soft and she looks quite good and her vital signs are stable. I think she does have an intrauterine but I think she is in the process of having a miscarriage. I have discussed this possibility with her. Dr. Cage is willing to see the patient in the clinic tomorrow or the next day. I have given the patient the [facility] with the plan of her calling tomorrow to be seen tomorrow or the day after. At the time of discharge, I have instructed the patient at the bedside with regards to return precautions and follow-up recommendations. The opportunity for questions was given. The patient has verbalized understanding of these instructions and the need for follow-up. - Vital Signs Vital signs: Temp Pulse Resp BP Pulse Ox 98.4 F 76 16 138/88 H 100 04/09/17 13:44 04/09/17 13:44 04/09/17 13:44 04/09/17 13:44 04/09/17 13:44 - Laboratory Laboratory results interpreted by me: 04/09/17 11:10 Beta HCG, Quant 89281.00 H - Diagnostic Test Radiology reviewed: Image reviewed, Reports reviewed - The formal ultrasound report is that of a possible early gestation. I believe the ultrasound shows an abnormal gestational sac which is intrauterine and suggestive of an abnormal . Doctor's Discharge - Discharge Clinical Impression: Vaginal bleeding, Abnormal Condition: Stable Disposition: HOME, SELF-CARE Additional Instructions: Recommendations: Rest, drink plenty of fluids [facility] Call the office and tell them you were in the ER and the ER doctor had spoken to Dr. Cage and she wanted you seen in the office tomorrow with a day after. Return to the emergency room for worsening pain or worsening bleeding. Nausea/Vomiting in : Eating small, frequent meals are recommended. Over the counter Pyridoxine (Vitamin B6) and Doxylamine daily has been found helpful with nausea and vomiting. Briana and peppermint products can help. Accupressure maybe helpful. You can find more information about accupressure online: [email or web address] Sea-bands are relatively inexpensive and can help with nausea. Referrals: KARTHIK CAGE MD [ACTIVE STAFF] - Follow up as needed (Call the office tomorrow: Tell them that the ER doctor spoke with Dr. Cage who wanted you seen in the clinic for repeat evaluation tomorrow the day after.)
--- NOTE | 2017-04-09 12:45 | RADIOLOGY REPORT (SQ) ---
EXAM DESCRIPTION: U/S OB TRANSVAG W/DOPPLER COMPLETED DATE/TIME: 04/09/2017 12:31 pm REASON FOR STUDY: , bleeding COMPARISON: None. TECHNIQUE: Transvaginal static and realtime grayscale images acquired of the pelvis. Additional elsie cted spectral and color Doppler images recorded. All images stored on PACs. bHCG: Pending. LIMITATIONS: None. FINDINGS: UTERUS: No masses. No anomalies. GESTATIONAL SAC: Yes. YOLK SAC: Yes. POLE: No. RIGHT ADNEXA: Normal ovary with normal vascular flow. No adnexal free fluid. No adnexal masses. LEFT ADNEXA: Normal ovary with normal vascular flow. No adnexal free fluid. No adnexal masses. FREE FLUID: None. OTHER: No other significant finding. IMPRESSION: POSSIBLE EARLY INTRAUTERINE . BHCG LEVEL NOT AVAILABLE FOR CORRELATION WITH US FINDINGS. CONSIDER F/U BHCG AND/OR ULTRASOUND FOR VERIFICATION AND TO EXCLUDE ECTOPIC . Trimester of : First - 0 to 13 weeks. TECHNICAL DOCUMENTATION: JOB ID: [id number] [employer] All Rights Reserved
[2017-04-09 13:54] VITALS: BP 138/88
== END 2017-04-09 13:45 | disposition home or self-care (01) ==
LOC: ER 10:30
DX: O20.9 Hemorrhage in early pregnancy, unspecified (principal); O16.9 Unspecified maternal hypertension, unspecified trimester; O26.899 Other specified pregnancy related conditions, unspecified trimester; Z3A.00 Weeks of gestation of pregnancy not specified; Z87.59 Personal history of other complications of pregnancy, childbirth and the puerperium; Z87.42 Personal history of other diseases of the female genital tract
CPT/HCPCS: 36415; 76817; 84702; 93976; 99284

== ENCOUNTER 2017-04-13 15:54 | Emergency (ER) | payer SELFPAY ==
--- NOTE | 2017-04-13 16:51 | ER Document Report ---
ED Medical Screen (RME) - General Chief Complaint: Vaginal Bleeding Stated Complaint: VAGINAL BLEEDING Time Seen by Provider: 04/13/17 16:50 Mode of Arrival: Ambulatory Information source: Patient Notes: 31 yo female c/o a lot vaginal bleeding, with clots, midline pelvic pain. 6 weeks . Feels weak but not dizzy now. . Pain 5/5. Seen on 04-09 quant. ,097, no IUP seen on US. Saw [facility] monday and the quant was NOT going up from 04-09, was told that she would have miscarriage. Called the office this morning and they told her to come to the ER. TRAVEL OUTSIDE OF THE [place] IN LAST 30 DAYS: No - Related Data Allergies/Adverse Reactions: No Known Allergies Allergy (Verified 04/09/17 10:31) Past Medical History - Social History Family history: None - Past Medical History Cardiac Medical History: Reports: Hx Hypertension - no meds Renal/ Medical History: Denies: Hx Ovarian Cysts, Hx Peritoneal Dialysis GI Medical History: Reports: Hx Gastroesophageal Reflux Disease Musculoskeltal Medical History: Reports Hx Musculoskeletal Trauma Past Surgical History: Reports: Hx Section - Immunizations Immunizations up to date: Yes Hx Diphtheria, Pertussis, Tetanus Vaccination: Yes Physical Exam - Vital signs Vitals: Temp Pulse Resp BP Pulse Ox 98.5 F 91 16 131/81 H 99 04/13/17 16:27 04/13/17 16:27 04/13/17 16:27 04/13/17 16:27 04/13/17 16:27 Course - Vital Signs Vital signs: Temp Pulse Resp BP Pulse Ox 98.5 F 91 16 131/81 H 99 04/13/17 16:27 04/13/17 16:27 04/13/17 16:27 04/13/17 16:27 04/13/17 16:27
--- NOTE | 2017-04-13 18:44 | RADIOLOGY REPORT (SQ) ---
EXAM DESCRIPTION: U/S OB TRANSVAG W/DOPPLER COMPLETED DATE/TIME: 04/13/2017 6:34 pm REASON FOR STUDY: vaginal bleeding, 6 weeks , COMPARISON: None. TECHNIQUE: Transvaginal static and realtime grayscale images acquired of the pelvis. Additional elsie cted spectral and color Doppler images recorded. All images stored on PACs. bHCG: Not available LIMITATIONS: None. FINDINGS: UTERUS: No masses. No anomalies. GESTATIONAL SAC: Gestational sac identified measuring 7 weeks 1 day YOLK SAC: Not visualize POLE: Not visualized RIGHT ADNEXA: Right ovary not visualized. No adnexal free fluid. No adnexal masses. LEFT ADNEXA: Left ovary not visualized. No adnexal free fluid. No adnexal masses. FREE FLUID: None. OTHER: No other significant finding. IMPRESSION: Intrauterine gestational sac is identified without a yolk sac or pole being identi fied. CONSIDER F/U BHCG AND/OR ULTRASOUND FOR VERIFICATION of a living gestation AND TO EXCLUDE ECTOPIC PRE GNANCY. Trimester of : First - 0 to 13 weeks. TECHNICAL DOCUMENTATION: JOB ID: [id number]- All Rights Reserved
[2017-04-13 19:28] LABS: ABSOLUTE EOSINOPHILS # (AUTO) 0.1 10^3/uL (0.0-0.6); ABSOLUTE LYMPHOCYTES (AUTO) 1.2 10^3/uL (0.5-4.7); ABSOLUTE MONOCYTES (AUTO) 0.5 10^3/uL (0.1-1.4); ABSOLUTE NEUT (AUTO) 6.1 10^3/uL (1.7-8.2); BASOPHILS % (AUTO) 0.3 % (0-2); EOSINOPHILS % (AUTO) 0.9 % (0-6); HEMOGLOBIN 13.2 g/dL (12.0-15.5); LYMPHOCYTES % (AUTO) 15.2 % (13-45); MEAN CORPUSCULAR HEMOGLOBIN 27.8 pg (27.0-33.4); MEAN CORPUSCULAR HGB CONC 33.9 g/dL (32.0-36.0); MEAN CORPUSCULAR VOLUME 82 fl (80-97); PLATELET COUNT 262 10^3/uL (150-450); RED BLOOD COUNT 4.76 10^6/uL (3.72-5.28); RED CELL DISTRIBUTION WIDTH 14.2 % (11.5-14.0); SEGMENTED NEUTROPHILS % (AUTO) 77.6 % (42-78); TOTAL CELLS COUNTED % (AUTO) 100 %; WHITE BLOOD COUNT 7.8 10^3/uL (4.0-10.5)
[2017-04-13 19:44] LABS: ALANINE AMINOTRANSFERASE 31 U/L (9-52); ALBUMIN 4.4 g/dL (3.5-5.0); ALKALINE PHOSPHATASE 87 U/L (38-126); ANION GAP 11 (5-19); ASPARTATE AMINO TRANSFERASE 21 U/L (14-36); BILIRUBIN,DIRECT 0.2 mg/dL (0.0-0.4); BILIRUBIN,TOTAL 0.6 mg/dL (0.2-1.3); BLOOD UREA NITROGEN 8 mg/dL (7-20); CALCIUM 9.7 mg/dL (8.4-10.2); CARBON DIOXIDE 25 mmol/L (22-30); CHLORIDE 100 mmol/L (98-107); GLUCOSE 110 mg/dL (75-110); POTASSIUM 3.9 mmol/L (3.6-5.0); SODIUM 136.2 mmol/L (137-145); TOTAL PROTEIN 7.8 g/dL (6.3-8.2)
--- NOTE | 2017-04-13 21:02 | ER Document Report ---
ED GI/ - General Chief Complaint: Vaginal Bleeding Stated Complaint: VAGINAL BLEEDING Time Seen by Provider: 04/13/17 16:50 Mode of Arrival: Ambulatory Notes: 31-year-old female to the emergency department complaining of persistent cramping and vaginal bleeding. Known to be . Has been seen in the ER on multiple occasions. Followed up with [facility]. Has been [place] passing a few small blood clots today. Cramping. Requesting an . TRAVEL OUTSIDE OF THE [place] IN LAST 30 DAYS: No - HPI Patient complains to provider of: Vaginal bleeding, Vaginal pain Severity at maximum: Moderate Severity in ED: Moderate Pain Level: 2 - Related Data Allergies/Adverse Reactions: No Known Allergies Allergy (Verified 04/09/17 10:31) Past Medical History - General Information source: Patient - Social History Smoking Status: Never Smoker Cigarette use (# per day): No Frequency of alcohol use: None Drug Abuse: None Lives with: Family Family History: Hypertension. denies: Arthritis, CAD, COPD, CVA, DM, Hyperlipidemia, Malignancy, Thyroid Disfunction - Past Medical History Cardiac Medical History: Reports: Hx Hypertension - no meds Renal/ Medical History: Denies: Hx Ovarian Cysts, Hx Peritoneal Dialysis GI Medical History: Reports: Hx Gastroesophageal Reflux Disease Musculoskeltal Medical History: Reports Hx Musculoskeletal Trauma Past Surgical History: Reports: Hx Section - Immunizations Immunizations up to date: Yes Hx Diphtheria, Pertussis, Tetanus Vaccination: Yes Review of Systems - Review of Systems Constitutional: No symptoms reported EENT: No symptoms reported Cardiovascular: No symptoms reported Respiratory: No symptoms reported Gastrointestinal: No symptoms reported Genitourinary: No symptoms reported Female Genitourinary: , Vaginal bleeding Musculoskeletal: No symptoms reported Skin: No symptoms reported Hematologic/Lymphatic: No symptoms reported Neurological/Psychological: No symptoms reported Physical Exam - Vital signs Vitals: Temp Pulse Resp BP Pulse Ox 98.5 F 91 16 131/81 H 99 04/13/17 16:27 04/13/17 16:27 04/13/17 16:27 04/13/17 16:27 04/13/17 16:27 Interpretation: Normal - General General appearance: Appears well, Alert - HEENT Head: Normocephalic, Atraumatic Eyes: Normal Pupils: PERRL - Respiratory Respiratory status: No respiratory distress Chest status: Nontender Breath sounds: Normal Chest palpation: Normal - Cardiovascular Rhythm: Regular Heart sounds: Normal auscultation Murmur: No - Abdominal Inspection: Normal Distension: No distension Bowel sounds: Normal Tenderness: Nontender Organomegaly: No organomegaly - Back Back: Normal, Nontender - Extremities General upper extremity: Normal inspection, Nontender, Normal color, Normal ROM , Normal temperature General lower extremity: Normal inspection, Nontender, Normal color, Normal ROM , Normal temperature, Normal weight bearing. No: Francisco's sign - Neurological Neuro grossly intact: Yes Cognition: Normal Orientation: AAOx4 [place] Coma Scale Eye Opening: Spontaneous [place] Coma Scale Verbal: Oriented [place] Coma Scale Motor: Obeys Commands [place] Coma Scale Total: 15 Speech: Normal Motor strength normal: LUE, RUE, LLE, RLE Sensory: Normal - Psychological Associated symptoms: Normal affect, Normal mood - Skin Skin Temperature: Warm Skin Moisture: Dry Skin Color: Normal Course - Re-evaluation Re-evalutation: 04/13/17 20:59 Patient explained that her hCG levels have gone up that she has evidence of an intrauterine and that she should be more patient at this time waiting for symptoms either resolve or get worse. Patient is requesting that I give her medication for an at this time. I do not feel comfortable doing this. I will refer her to [facility]. 04/13/17 21:00 Laboratory 04/13/17 04/13/17 04/13/17 18:55 18:55 18:55 WBC 7.8 RBC 4.76 Hgb 13.2 Hct 39.0 MCV 82 MCH 27.8 MCHC 33.9 RDW 14.2 H Plt Count 262 Seg Neutrophils % 77.6 Lymphocytes % 15.2 Monocytes % 6.0 Eosinophils % 0.9 Basophils % 0.3 Absolute Neutrophils 6.1 Absolute Lymphocytes 1.2 Absolute Monocytes 0.5 Absolute Eosinophils 0.1 Absolute Basophils 0.0 Sodium 136.2 L Potassium 3.9 Chloride 100 Carbon Dioxide 25 Anion Gap 11 BUN 8 Creatinine 0.65 Est GFR ( Amer) > 60 Est GFR (Non-Af Amer) > 60 Glucose 110 Calcium 9.7 Total Bilirubin 0.6 Direct Bilirubin 0.2 Neonat Total Bilirubin Not Reportable Neonat Direct Bilirubin Not Reportable Neonat Indirect Bili Not Reportable AST 21 ALT 31 Alkaline Phosphatase 87 Total Protein 7.8 Albumin 4.4 Beta HCG, Quant 46018.00 H Total Beta HCG POSITIVE Blood Type O POSITIVE Rhogam Indicated RHOGAM NOT INDICATED Transvaginal US 04/13/17 16:52 IMPRESSION: Intrauterine gestational sac is identified without a yolk sac or pole being identified. CONSIDER F/U BHCG AND/OR ULTRASOUND FOR VERIFICATION of a living gestation AND TO EXCLUDE ECTOPIC . Trimester of : First - 0 to 13 weeks. - Vital Signs Vital signs: Temp Pulse Resp BP Pulse Ox 98.5 F 91 16 131/81 H 99 04/13/17 16:27 04/13/17 16:27 04/13/17 16:27 04/13/17 16:27 04/13/17 16:27 - Laboratory Result Diagrams: 04/13/17 18:55 04/13/17 18:55 Laboratory results interpreted by me: 04/13/17 04/13/17 18:55 18:55 RDW 14.2 H Sodium 136.2 L Beta HCG, Quant 79682.00 H Discharge - Discharge Clinical Impression: Threatened Disposition: HOME, SELF-CARE Instructions: (OM), Bleeding During Early (OM), Ob-Crop Or Livestock Tenant Farmer Doctors, Threatened Miscarriage ([facility]) Additional Instructions: follow-up with an [facility] or the women's clinic for further evaluation. To the emergency department if you are soaking more than 2 pads per hour for more than 2 hours or severe unrelenting pain. You may take Zantac for your reflux. You may take Tylenol only for your pain.
[2017-04-13] MEDS ORDERED: FAMOTIDINE 20 MG TABLET PO ONE (21:16)
[2017-04-13 21:28] VITALS: BP 138/68
== END 2017-04-13 21:25 | disposition home or self-care (01) ==
LOC: ER 15:54
DX: O20.0 Threatened abortion (principal); Z3A.01 Less than 8 weeks gestation of pregnancy
CPT/HCPCS: 36415; 76817; 80053; 84702; 85025; 86900; 86901; 93976; 99284

== ENCOUNTER 2017-05-24 21:38 | Emergency (ER) | payer OTHER ==
[2017-05-24 23:37] LABS: ABSOLUTE BASOPHILS # (AUTO) 0.1 10^3/uL (0.0-0.2); ABSOLUTE EOSINOPHILS # (AUTO) 0.2 10^3/uL (0.0-0.6); ABSOLUTE LYMPHOCYTES (AUTO) 3.1 10^3/uL (0.5-4.7); ABSOLUTE MONOCYTES (AUTO) 1.1 10^3/uL (0.1-1.4); ABSOLUTE NEUT (AUTO) 6.7 10^3/uL (1.7-8.2); BASOPHILS % (AUTO) 0.9 % (0-2); EOSINOPHILS % (AUTO) 1.5 % (0-6); HEMOGLOBIN 12.3 g/dL (12.0-15.5); LYMPHOCYTES % (AUTO) 27.6 % (13-45); MEAN CORPUSCULAR HEMOGLOBIN 28.5 pg (27.0-33.4); MEAN CORPUSCULAR HGB CONC 34.2 g/dL (32.0-36.0); MEAN CORPUSCULAR VOLUME 83 fl (80-97); MONOCYTES % (AUTO) 9.9 % (3-13); PLATELET COUNT 279 10^3/uL (150-450); RED BLOOD COUNT 4.31 10^6/uL (3.72-5.28); SEGMENTED NEUTROPHILS % (AUTO) 60.1 % (42-78); TOTAL CELLS COUNTED % (AUTO) 100 %; WHITE BLOOD COUNT 11.2 10^3/uL (4.0-10.5)
[2017-05-24 23:41] LABS: APPEARANCE,URINE CLEAR; BILIRUBIN,URINE NEGATIVE (NEGATIVE); COLOR,URINE STRAW; GLUCOSE, URINE NEGATIVE (NEGATIVE); KETONES,URINE NEGATIVE (NEGATIVE); LEUKOCYTE ESTERASE,URINE NEGATIVE (NEGATIVE); NITRITE,URINE NEGATIVE (NEGATIVE); PROTEIN,URINE NEGATIVE (NEGATIVE); UROBILINOGEN,URINE NEGATIVE mg/dL (<2.0)
[2017-05-24 23:55] LABS: ALANINE AMINOTRANSFERASE 27 U/L (9-52); ALKALINE PHOSPHATASE 87 U/L (38-126); ANION GAP 10 (5-19); ASPARTATE AMINO TRANSFERASE 15 U/L (14-36); BILIRUBIN,DIRECT 0.4 mg/dL (0.0-0.4); BILIRUBIN,TOTAL 0.4 mg/dL (0.2-1.3); BLOOD UREA NITROGEN 13 mg/dL (7-20); CALCIUM 9.6 mg/dL (8.4-10.2); CARBON DIOXIDE 25 mmol/L (22-30); CHLORIDE 103 mmol/L (98-107); GLUCOSE 119 mg/dL (75-110); POTASSIUM 4.2 mmol/L (3.6-5.0); SODIUM 138.3 mmol/L (137-145); TOTAL PROTEIN 7.1 g/dL (6.3-8.2)
--- NOTE | 2017-05-25 00:21 | ER Document Report ---
ED General - General Chief Complaint: Vag Bleeding, +preg <12wks Stated Complaint: VAGINAL BLEEDING/ABDOMINAL PAIN Time Seen by Provider: 05/24/17 22:58 TRAVEL OUTSIDE OF THE [place] IN LAST 30 DAYS: No - HPI Patient complains to provider of: vaginal bleeding Onset: Other - mid april for a few days. Now just spotting. Quality of pain: Cramping Associated symptoms: Nausea. denies: Vomiting Exacerbated by: Denies Relieved by: Denies Recently seen / treated by doctor: Yes - u/s 05/18/17 was 11 weeks Notes: Vaginal bleeding last few days-minimal. . for failure to progress. - Related Data Allergies/Adverse Reactions: No Known Allergies Allergy (Verified 05/24/17 21:50) Past Medical History - General Information source: Patient - Social History Smoking Status: Never Smoker Frequency of alcohol use: None Drug Abuse: None Lives with: Family Family History: Hypertension. denies: Arthritis, CAD, COPD, CVA, DM, Hyperlipidemia, Malignancy, Thyroid Disfunction Patient has suicidal ideation: No Patient has homicidal ideation: No - Past Medical History Cardiac Medical History: Reports: Hx Hypertension - no meds Pulmonary Medical History: Reports: None EENT Medical History: Reports: None Neurological Medical History: Reports: None Endocrine Medical History: Reports: None Renal/ Medical History: Reports: None. Denies: Hx Ovarian Cysts, Hx Peritoneal Dialysis Malignancy Medical History: Reports: None GI Medical History: Reports: Hx Gastroesophageal Reflux Disease Musculoskeltal Medical History: Reports Hx Musculoskeletal Trauma Psychiatric Medical History: Reports: None Infectious Medical History: Reports: None Past Surgical History: Reports: Hx Section - Immunizations Immunizations up to date: Yes Hx Diphtheria, Pertussis, Tetanus Vaccination: Yes Review of Systems - Review of Systems Constitutional: No symptoms reported EENT: No symptoms reported Cardiovascular: No symptoms reported Respiratory: No symptoms reported Gastrointestinal: Nausea. denies: Vomiting Genitourinary: Hematuria Female Genitourinary: No symptoms reported Musculoskeletal: No symptoms reported Skin: No symptoms reported Hematologic/Lymphatic: denies: Blood clots Neurological/Psychological: No symptoms reported Physical Exam - Vital signs Vitals: Temp Pulse Resp BP Pulse Ox 98.4 F 82 18 134/82 H 100 05/24/17 21:49 05/24/17 21:49 05/24/17 21:49 05/24/17 21:49 05/24/17 21:49 - Notes Notes: PHYSICAL EXAMINATION: GENERAL: Well-appearing, well-nourished and in no acute distress. Sitting on the bed with his 2 year old son playing. HEAD: Atraumatic, normocephalic. EYES: Pupils equal round and reactive to light, extraocular movements intact, conjunctiva are normal. ENT: Nares patent, oropharynx clear without exudates. Moist mucous membranes. NECK: Normal range of motion, supple without lymphadenopathy LUNGS: Breath sounds clear to auscultation bilaterally and equal. No wheezes rales or rhonchi. HEART: Regular rate and rhythm without murmurs ABDOMEN: Soft, nontender, nondistended abdomen. No guarding, no rebound. No masses appreciated. Female : External vaginal genitalia within normal limits. Patient has scant amount of blood in the vaginal vault. Osseous is closed. Mild vaginal tenderness with bimanual exam. Musculoskeletal: Normal range of motion, no pitting or edema. No cyanosis. NEUROLOGICAL: Cranial nerves grossly intact. Normal speech, normal gait. Normal sensory, motor exams PSYCH: Normal mood, normal affect. SKIN: Warm, Dry, normal turgor, no rashes or lesions noted. Course - Re-evaluation Re-evalutation: 05/25/17 00:16 Labs- All tests 24 hr 05/24/17 05/24/17 05/24/17 23:20 23:20 23:20 WBC 11.2 H RBC 4.31 Hgb 12.3 Hct 36.0 MCV 83 MCH 28.5 MCHC 34.2 RDW 15.0 H Plt Count 279 Seg Neutrophils % 60.1 Lymphocytes % 27.6 Monocytes % 9.9 Eosinophils % 1.5 Basophils % 0.9 Absolute Neutrophils 6.7 Absolute Lymphocytes 3.1 Absolute Monocytes 1.1 Absolute Eosinophils 0.2 Absolute Basophils 0.1 Sodium 138.3 Potassium 4.2 Chloride 103 Carbon Dioxide 25 Anion Gap 10 BUN 13 Creatinine 0.68 Est GFR ( Amer) > 60 Est GFR (Non-Af Amer) > 60 Glucose 119 H Calcium 9.6 Total Bilirubin 0.4 Direct Bilirubin 0.4 Neonat Total Bilirubin Not Reportable Neonat Direct Bilirubin Not Reportable Neonat Indirect Bili Not Reportable AST 15 ALT 27 Alkaline Phosphatase 87 Total Protein 7.1 Albumin 4.0 Urine Color STRAW Urine Appearance CLEAR Urine pH 5.0 Ur Specific [place] 1.010 Urine Protein NEGATIVE Urine Glucose (UA) NEGATIVE Urine Ketones NEGATIVE Urine Blood MODERATE H Urine Nitrite NEGATIVE Urine Bilirubin NEGATIVE Urine Urobilinogen NEGATIVE Ur Leukocyte Esterase NEGATIVE Urine WBC (Auto) 0 Urine RBC (Auto) 1 Urine Bacteria (Auto) TRACE Squamous Epi Cells Auto 1 Urine Mucus (Auto) RARE Urine Ascorbic Acid NEGATIVE 05/25/17 01:20 Did go back in and talk to the patient. She initially was not forthcoming with all of the historical information. She was seen here in March and had an ultrasound which showed a gestational sac. Patient states she has not had another ultrasound until today. She states she was seen at [facility] on Monday and had a positive urine test and by dates estimated she was 11 weeks. Patient states that around mid April she began with heavy bleeding and cramping. She states that it lasted for about 4-5 days and then stopped. She did not see the medical doctor at that point. I did go over the results to the ultrasound. I told the patient to follow-up with [facility] in the next few days. - Vital Signs Vital signs: Temp Pulse Resp BP Pulse Ox 97.8 F 81 18 134/90 H 97 05/25/17 01:16 05/25/17 01:16 05/25/17 01:16 05/25/17 01:16 05/25/17 01:16 - Laboratory Result Diagrams: 05/24/17 23:20 05/24/17 23:20 Laboratory results interpreted by me: 05/24/17 05/24/17 05/24/17 23:20 23:20 23:20 WBC 11.2 H RDW 15.0 H Glucose 119 H Urine Blood MODERATE H Discharge - Discharge Clinical Impression: Miscarriage Condition: Stable Disposition: HOME, SELF-CARE Instructions: Miscarriage ([facility]) Additional Instructions: Follow up with your physician tomorrow for further care or return to the ED IMMEDIATELY if symptoms worsen or new concerns occur. If you cannot afford to follow up with your primary care physician a list of low cost clinics have been provided at the end of your discharge papers as well. Referrals: [facility] [Provider Group] - Follow up in 3-5 days
--- NOTE | 2017-05-25 00:39 | RADIOLOGY REPORT (SQ) ---
EXAM DESCRIPTION: U/S OB TRANSVAGINAL W/O DOP CLINICAL HISTORY: 32 years Female, 11 weeks, vaginal bleeding COMPARISON: 04/13/2017 TECHNIQUE: Complete first trimester obstetrical ultrasound with transvaginal imaging. FINDINGS: The uterus measures 9.3 x 4.9 x 3.8 cm. A gestational sac is not identified on this study. Cervical length of 2.4 cm. Endometrial thickness of 1.4 cm. Small amount of fluid noted within the cervix. No free pelvic fluid. The right ovary measures 2.9 x 2.5 x 2.2 cm. Left ovary measures 2.3 x 2.0 x 2.0 cm. Color Doppler imaging of the ovaries demonstrates flow. Spectral Doppler imaging was not performed. IMPRESSION: 1. No intrauterine gestational sac identified on this study. Small amount of fluid in the cervix. These findings are compatible with miscarriage given previously visualized intrauterine gestational sac. Less likely considerations include early normal or ectopic . No ultrasound evidence of adnexal ectopic . Close continued apical, laboratory, and sonographic follow-up recommended.
[2017-05-25 01:18] VITALS: BP 134/90
== END 2017-05-25 01:18 | disposition home or self-care (01) ==
LOC: ER 21:38
DX: O03.9 Complete or unspecified spontaneous abortion without complication (principal); R10.9 Unspecified abdominal pain; I10 Essential (primary) hypertension; Z3A.11 11 weeks gestation of pregnancy
CPT/HCPCS: 36415; 76817; 80053; 81001; 85025; 99284

== ENCOUNTER 2017-11-06 11:25 | Emergency (ER) | payer MEDICAID, OTHER ==
--- NOTE | 2017-11-06 13:13 | ER Document Report ---
ED Medical Screen (RME) - General Chief Complaint: Abdominal Pain Stated Complaint: RIGHT SIDE PAIN Time Seen by Provider: 11/06/17 13:12 Notes: 32-year-old female patient emergency department chief complaint of dysuria. Suprapubic discomfort. Does not know if she could be . Denies any fever, chills. Has some mild nausea. No vaginal bleeding or no abnormal vaginal discharge. I have greeted and performed a rapid initial assessment of this patient. A comprehensive ED assessment and evaluation of the patient, analysis of test results and completion of the medical decision making process will be conducted by additional ED providers. TRAVEL OUTSIDE OF THE [place] IN LAST 30 DAYS: No - Related Data Allergies/Adverse Reactions: No Known Allergies Allergy (Verified 11/06/17 13:12) Past Medical History - Social History Chew tobacco use (# tins/day): No Frequency of alcohol use: None Drug Abuse: None Family history: None - Past Medical History Cardiac Medical History: Reports: Hx Hypertension - no meds Renal/ Medical History: Denies: Hx Ovarian Cysts, Hx Peritoneal Dialysis GI Medical History: Reports: Hx Gastroesophageal Reflux Disease Musculoskeltal Medical History: Reports Hx Musculoskeletal Trauma Past Surgical History: Reports: Hx Section - Immunizations Immunizations up to date: Yes Hx Diphtheria, Pertussis, Tetanus Vaccination: Yes Review of Systems - Review of Systems Notes: Review of systems positive for the following: Suprapubic tenderness, right lower quadrant discomfort, questionable Physical Exam - Vital signs Vitals: Temp Pulse Resp BP Pulse Ox 98.9 F 80 18 130/86 H 99 11/06/17 11:50 11/06/17 11:50 11/06/17 11:50 11/06/17 11:50 11/06/17 11:50 Interpretation: Normal - Respiratory Respiratory status: No respiratory distress Chest status: Nontender Breath sounds: Normal Chest palpation: Normal - Cardiovascular Rhythm: Regular Heart sounds: Normal auscultation Murmur: No - Abdominal Inspection: Normal Distension: No distension Bowel sounds: Normal Tenderness: Nontender Organomegaly: No organomegaly Course - Vital Signs Vital signs: Temp Pulse Resp BP Pulse Ox 98.2 F 69 14 132/91 H 97 11/06/17 16:03 11/06/17 16:03 11/06/17 16:03 11/06/17 16:03 11/06/17 16:03 - Laboratory Result Diagrams: 11/06/17 13:46 11/06/17 13:46 Laboratory results interpreted by me: 11/06/17 13:46 Total Protein 8.3 H Doctor's Discharge - Discharge Clinical Impression: Right lateral abdominal pain Condition: Stable Disposition: HOME, SELF-CARE Instructions: Family Physicians / Practices, [facility] ([facility] ) Additional Instructions: ABDOMINAL PAIN: There are many causes of abdominal pain. Pain can mean a serious problem requiring surgery (such as appendicitis). It can also be an innocent problem that goes away on its own (such as a viral infection). Often, time must pass to determine the cause of pain. The physician does not feel that hospitalization is necessary, at present. Things may change within the next 24 hours. Call the doctor or come back for re- examination if any problems occur, such as: (1) Pain that becomes more severe, steady, or becomes concentrated in one specific area. Also, pain that is more severe with movement or coughing. (2) Vomiting that persists or becomes more frequent. (3) Blood in the vomitus, urine, or bowel movements. Blood in the stool may have a tarry or black appearance. (4) Shaking chills or fever greater than 100 degrees F. (5) The abdomen becomes more distended or swollen. (6) Bowel movements cease. (7) Failure to improve as expected. NORMAL EXAM AND WORKUP: At this time, your examination and workup show no significant abnormality. No significant abnormal physical findings are noted. All laboratory, EKG, and imaging (x-ray, CT scans, ultrasound) studies that were ordered show no significant abnormality. Although your examination and all studies that were ordered showed no significant abnormal finding, there are no examinations and no studies that are 100% accurate. There is always the possibility that some abnormality could exist and not be detected with physical examination or within the limits and capabilities of laboratory and other studies. You should return or follow up as you were instructed on your visit today for further evaluation if your symptoms do not resolve. You stated you did not need any nausea medicine. You states you did not want to stay for a more thorough exam. Please return to the ED if the pain returns or increases. FOLLOW-UP CARE: If you have been referred to a physician for follow-up care, call the physician s office for an appointment as you were instructed or within the next two days. If you experience worsening or a significant change in your symptoms, notify the physician immediately or return to the Emergency Department at any time for re-evaluation. Forms: Elevated Blood Pressure
[2017-11-06 14:12] LABS: ABSOLUTE EOSINOPHILS # (AUTO) 0.1 10^3/uL (0.0-0.6); ABSOLUTE LYMPHOCYTES (AUTO) 3.2 10^3/uL (0.5-4.7); ABSOLUTE MONOCYTES (AUTO) 0.8 10^3/uL (0.1-1.4); BASOPHILS % (AUTO) 0.5 % (0-2); EOSINOPHILS % (AUTO) 1.2 % (0-6); HEMATOCRIT 38.9 % (36.0-47.0); HEMOGLOBIN 13.2 g/dL (12.0-15.5); LYMPHOCYTES % (AUTO) 39.3 % (13-45); MEAN CORPUSCULAR HEMOGLOBIN 28.1 pg (27.0-33.4); MEAN CORPUSCULAR HGB CONC 33.9 g/dL (32.0-36.0); MEAN CORPUSCULAR VOLUME 83 fl (80-97); MONOCYTES % (AUTO) 9.9 % (3-13); PLATELET COUNT 287 10^3/uL (150-450); RED BLOOD COUNT 4.69 10^6/uL (3.72-5.28); SEGMENTED NEUTROPHILS % (AUTO) 49.1 % (42-78); TOTAL CELLS COUNTED % (AUTO) 100 %; WHITE BLOOD COUNT 8.2 10^3/uL (4.0-10.5)
[2017-11-06 14:19] LABS: APPEARANCE,URINE SLIGHTLY-CLOUDY; BILIRUBIN,URINE NEGATIVE (NEGATIVE); COLOR,URINE YELLOW; GLUCOSE, URINE NEGATIVE (NEGATIVE); KETONES,URINE NEGATIVE (NEGATIVE); LEUKOCYTE ESTERASE,URINE NEGATIVE (NEGATIVE); NITRITE,URINE NEGATIVE (NEGATIVE); PROTEIN,URINE NEGATIVE (NEGATIVE); URINE SPECIFIC GRAVITY 1.013; UROBILINOGEN,URINE NEGATIVE mg/dL (<2.0)
[2017-11-06 14:35] LABS: ALANINE AMINOTRANSFERASE 24 U/L (9-52); ALBUMIN 4.3 g/dL (3.5-5.0); ALKALINE PHOSPHATASE 86 U/L (38-126); ANION GAP 15 (5-19); ASPARTATE AMINO TRANSFERASE 19 U/L (14-36); BILIRUBIN,DIRECT 0.3 mg/dL (0.0-0.4); BILIRUBIN,TOTAL 0.4 mg/dL (0.2-1.3); BLOOD UREA NITROGEN 8 mg/dL (7-20); CALCIUM 9.5 mg/dL (8.4-10.2); CARBON DIOXIDE 25 mmol/L (22-30); CHLORIDE 104 mmol/L (98-107); GLUCOSE 82 mg/dL (75-110); SODIUM 143.6 mmol/L (137-145); TOTAL PROTEIN 8.3 g/dL (6.3-8.2)
--- NOTE | 2017-11-06 16:02 | ER Document Report ---
ED GI/ - General Chief Complaint: Abdominal Pain Stated Complaint: RIGHT SIDE PAIN Time Seen by Provider: 11/06/17 13:12 Mode of Arrival: Ambulatory Information source: Patient Notes: 32-year-old female presents to ED for complaint of lower abdominal pain times a month with nausea but no vomiting. TRAVEL OUTSIDE OF THE [place] IN LAST 30 DAYS: No - HPI Patient complains to provider of: Abdominal pain, Pelvic pain, Other - Nausea no vomiting Onset: Other - Abdominal pain times a month nausea times a month no vomiting Timing/Duration: Intermittent, Better Quality of pain: Sharp Severity at maximum: Severe Severity in ED: Almost gone Pain Level: 1 Location: Pelvis - Right Vaginal bleeding (Compared to normal period): None Associated symptoms: Nausea. denies: Vomiting Exacerbated by: Denies Relieved by: Denies Similar symptoms previously: Yes Recently seen / treated by doctor: No - Related Data Allergies/Adverse Reactions: No Known Allergies Allergy (Verified 11/06/17 13:12) Past Medical History - General Information source: Patient - Social History Smoking Status: Never Smoker Cigarette use (# per day): No Chew tobacco use (# tins/day): No Smoking Education Provided: No Frequency of alcohol use: None Drug Abuse: None Family History: Hypertension. denies: Arthritis, CAD, COPD, CVA, DM, Hyperlipidemia, Malignancy, Thyroid Disfunction Patient has suicidal ideation: No Patient has homicidal ideation: No - Past Medical History Cardiac Medical History: Reports: Hx Hypertension - no meds Pulmonary Medical History: Reports: None EENT Medical History: Reports: None Neurological Medical History: Reports: None Endocrine Medical History: Reports: None Renal/ Medical History: Reports: None Malignancy Medical History: Reports: None GI Medical History: Reports: Hx Gastroesophageal Reflux Disease Musculoskeletal Medical History: Reports Hx Musculoskeletal Trauma Skin Medical History: Reports None Psychiatric Medical History: Reports: None Traumatic Medical History: Reports: None Infectious Medical History: Reports: None Past Surgical History: Reports: Hx Section - Immunizations Immunizations up to date: Yes Hx Diphtheria, Pertussis, Tetanus Vaccination: Yes Review of Systems - Review of Systems Constitutional: No symptoms reported EENT: No symptoms reported Cardiovascular: Chest pain - States she no longer has chest pain she is just hungry, states she has a history of GERD and takes Prilosec for it Respiratory: No symptoms reported Gastrointestinal: Abdominal pain - Very low right pain more in the pelvic area dates very mild less than a 1 at this time, Nausea - States she is no longer having any nausea and refused nausea medication. denies: Vomiting Genitourinary: No symptoms reported Female Genitourinary: No symptoms reported Musculoskeletal: No symptoms reported Skin: No symptoms reported Hematologic/Lymphatic: No symptoms reported Neurological/Psychological: No symptoms reported -: Yes All other systems reviewed and negative Physical Exam - Vital signs Vitals: Temp Pulse Resp BP Pulse Ox 98.9 F 80 18 130/86 H 99 11/06/17 11:50 11/06/17 11:50 11/06/17 11:50 11/06/17 11:50 11/06/17 11:50 Interpretation: Normal - General General appearance: Appears well, Alert - HEENT Head: Normocephalic, Atraumatic Eyes: Normal Pupils: PERRL - Respiratory Respiratory status: No respiratory distress Chest status: Nontender Breath sounds: Normal Chest palpation: Normal - Cardiovascular Rhythm: Regular Heart sounds: Normal auscultation Murmur: No - Abdominal Inspection: Normal Distension: No distension Bowel sounds: Normal Tenderness: Tender - Very low right, more and right pelvic Organomegaly: No organomegaly - Back Back: Normal, Nontender - Extremities General upper extremity: Normal inspection, Nontender, Normal color, Normal ROM , Normal temperature General lower extremity: Normal inspection, Nontender, Normal color, Normal ROM , Normal temperature, Normal weight bearing. No: Francisco's sign - Neurological Neuro grossly intact: Yes Cognition: Normal Orientation: AAOx4 Perry Coma Scale Eye Opening: Spontaneous Chuy Coma Scale Verbal: Oriented Perry Coma Scale Motor: Obeys Commands Chuy Coma Scale Total: 15 Speech: Normal Motor strength normal: LUE, RUE, LLE, RLE Sensory: Normal - Psychological Associated symptoms: Normal affect, Normal mood - Skin Skin Temperature: Warm Skin Moisture: Dry Skin Color: Normal Course - Re-evaluation Re-evalutation: 11/06/17 16:00 Patient stated she need to go home for family reasons. She states her pain is okay right now and she is having no nausea or vomiting at this time. I offered prescriptions for antinausea medications and she stated she did not need them. Patient is alert and oriented respirations were regular and unlabored abdomen was soft not mild tenderness to the right pelvic area no real abdominal tenderness. Bowel sounds are active. Patient was given strict instructions for returning for any increase in pain. Patient was given her lab results and discuss them with her and also given a written report. As soon as patient heard her lab results she said she was okay she did not need anything else and she was much better. Her lab results were all negative there is no UTI there is no and I think that was her main concerns. She stated she would return to the ED or a family doctor if I would provide her list. Patient was given a list of all the local primary doctor as an [employer]. She was discharged home. - Vital Signs Vital signs: Temp Pulse Resp BP Pulse Ox 98.9 F 80 18 130/86 H 99 11/06/17 11:50 11/06/17 11:50 11/06/17 11:50 11/06/17 11:50 11/06/17 11:50 - Laboratory Result Diagrams: 11/06/17 13:46 11/06/17 13:46 Laboratory results interpreted by me: 11/06/17 13:46 Total Protein 8.3 H Discharge - Discharge Clinical Impression: Right lateral abdominal pain Condition: Stable Disposition: HOME, SELF-CARE Instructions: Family Physicians / Practices, [facility] ([facility] ) Additional Instructions: ABDOMINAL PAIN: There are many causes of abdominal pain. Pain can mean a serious problem requiring surgery (such as appendicitis). It can also be an innocent problem that goes away on its own (such as a viral infection). Often, time must pass to determine the cause of pain. The physician does not feel that hospitalization is necessary, at present. Things may change within the next 24 hours. Call the doctor or come back for re- examination if any problems occur, such as: (1) Pain that becomes more severe, steady, or becomes concentrated in one specific area. Also, pain that is more severe with movement or coughing. (2) Vomiting that persists or becomes more frequent. (3) Blood in the vomitus, urine, or bowel movements. Blood in the stool may have a tarry or black appearance. (4) Shaking chills or fever greater than 100 degrees F. (5) The abdomen becomes more distended or swollen. (6) Bowel movements cease. (7) Failure to improve as expected. NORMAL EXAM AND WORKUP: At this time, your examination and workup show no significant abnormality. No significant abnormal physical findings are noted. All laboratory, EKG, and imaging (x-ray, CT scans, ultrasound) studies that were ordered show no significant abnormality. Although your examination and all studies that were ordered showed no significant abnormal finding, there are no examinations and no studies that are 100% accurate. There is always the possibility that some abnormality could exist and not be detected with physical examination or within the limits and capabilities of laboratory and other studies. You should return or follow up as you were instructed on your visit today for further evaluation if your symptoms do not resolve. You stated you did not need any nausea medicine. You states you did not want to stay for a more thorough exam. Please return to the ED if the pain returns or increases. FOLLOW-UP CARE: If you have been referred to a physician for follow-up care, call the physician s office for an appointment as you were instructed or within the next two days. If you experience worsening or a significant change in your symptoms, notify the physician immediately or return to the Emergency Department at any time for re-evaluation. Forms: Elevated Blood Pressure
[2017-11-06 16:09] VITALS: BP 132/91
--- NOTE | 2017-11-06 22:40 | EKG REPORT ---
SEVERITY:- ABNORMAL ECG - SINUS RHYTHM CONSIDER LEFT VENTRICULAR HYPERTROPHY NONSPECIFIC T ABNORMALITIES, INFERIOR LEADS : Confirmed by: Chinedu Verduzco 06-Nov-2017 22:39:41
== END 2017-11-06 16:10 | disposition home or self-care (01) ==
LOC: ER 11:25
DX: R10.2 Pelvic and perineal pain (principal); K21.9 Gastro-esophageal reflux disease without esophagitis; Z79.899 Other long term (current) drug therapy; R11.0 Nausea; I10 Essential (primary) hypertension
CPT/HCPCS: 36415; 80053; 81001; 84702; 85025; 93005; 93010; 99284

== ENCOUNTER 2017-11-15 17:04 | Inpatient (IN) | payer MEDICAID, OTHER ==
[2017-11-15] MEDS ORDERED: NORMAL SALINE 1000 ML 1,000 ML IV ONE ×2 (17:55→23:24)
--- NOTE | 2017-11-15 17:55 | ER Document Report ---
ED Medical Screen (RME) - General Chief Complaint: Headache >24 hrs old Stated Complaint: HEADACHE Time Seen by Provider: 11/15/17 17:47 Notes: 32 years old female who is a very difficult historian presents today with general tiredness, nausea vomited many times had diarrhea many times, general malaise, rash throughout the whole body. Denies any sore throat earache cough chest pain. Denies any fever chills. Not taking any medications. TRAVEL OUTSIDE OF THE [place] IN LAST 30 DAYS: No - Related Data Allergies/Adverse Reactions: No Known Allergies Allergy (Verified 11/15/17 17:05) Past Medical History - Social History Frequency of alcohol use: None Drug Abuse: None Family history: None - Past Medical History Cardiac Medical History: Reports: Hx Hypertension - no meds Renal/ Medical History: Denies: Hx Ovarian Cysts, Hx Peritoneal Dialysis GI Medical History: Reports: Hx Gastroesophageal Reflux Disease Musculoskeltal Medical History: Reports Hx Musculoskeletal Trauma Past Surgical History: Reports: Hx Section - Immunizations Immunizations up to date: Yes Hx Diphtheria, Pertussis, Tetanus Vaccination: Yes Physical Exam - Vital signs Vitals: Temp Pulse Resp BP Pulse Ox 100.2 F 109 H 16 110/79 97 11/15/17 17:11 11/15/17 17:11 11/15/17 17:11 11/15/17 17:11 11/15/17 17:11 Course - Vital Signs Vital signs: Temp Pulse Resp BP Pulse Ox 100.2 F 109 H 16 110/79 97 11/15/17 17:11 11/15/17 17:11 11/15/17 17:11 11/15/17 17:11 11/15/17 17:11
[2017-11-15 18:56] LABS: AMORPHOUS SEDIMENT,URINE TRACE /HPF; APPEARANCE,URINE CLOUDY; BILIRUBIN,URINE NEGATIVE (NEGATIVE); COLOR,URINE YELLOW; GLUCOSE, URINE NEGATIVE (NEGATIVE); KETONES,URINE NEGATIVE (NEGATIVE); LEUKOCYTE ESTERASE,URINE NEGATIVE (NEGATIVE); NITRITE,URINE NEGATIVE (NEGATIVE); PROTEIN,URINE 30 mg/dL (NEGATIVE); URINE SPECIFIC GRAVITY 1.013; UROBILINOGEN,URINE NEGATIVE mg/dL (<2.0)
[2017-11-15 19:05] LABS: ABSOLUTE BASOPHILS # (AUTO) 0.1 10^3/uL (0.0-0.2); ABSOLUTE LYMPHOCYTES (AUTO) 1.7 10^3/uL (0.5-4.7); ABSOLUTE MONOCYTES (AUTO) 0.3 10^3/uL (0.1-1.4); ABSOLUTE NEUT (AUTO) 4.8 10^3/uL (1.7-8.2); BASOPHILS % (AUTO) 0.9 % (0-2); HEMATOCRIT 36.3 % (36.0-47.0); HEMOGLOBIN 12.5 g/dL (12.0-15.5); LYMPHOCYTES % (AUTO) 24.8 % (13-45); MEAN CORPUSCULAR HEMOGLOBIN 27.8 pg (27.0-33.4); MEAN CORPUSCULAR HGB CONC 34.5 g/dL (32.0-36.0); MEAN CORPUSCULAR VOLUME 81 fl (80-97); PLATELET COUNT 140 10^3/uL (150-450); RED BLOOD COUNT 4.51 10^6/uL (3.72-5.28); RED CELL DISTRIBUTION WIDTH 13.9 % (11.5-14.0); SEGMENTED NEUTROPHILS % (AUTO) 70.3 % (42-78); TOTAL CELLS COUNTED % (AUTO) 100 %; WHITE BLOOD COUNT 6.8 10^3/uL (4.0-10.5)
[2017-11-15 19:26] LABS: ALANINE AMINOTRANSFERASE 74 U/L (9-52); ALKALINE PHOSPHATASE 87 U/L (38-126); ANION GAP 15 (5-19); ASPARTATE AMINO TRANSFERASE 77 U/L (14-36); BILIRUBIN,DIRECT 0.5 mg/dL (0.0-0.4); BILIRUBIN,TOTAL 0.8 mg/dL (0.2-1.3); BLOOD UREA NITROGEN 24 mg/dL (7-20); CALCIUM 8.8 mg/dL (8.4-10.2); CARBON DIOXIDE 24 mmol/L (22-30); CHLORIDE 93 mmol/L (98-107); GLUCOSE 108 mg/dL (75-110); POTASSIUM 4.1 mmol/L (3.6-5.0); SODIUM 132.1 mmol/L (137-145); TOTAL PROTEIN 8.1 g/dL (6.3-8.2)
[2017-11-15] MEDS ORDERED: CEFTRIAXONE INJ 1000 MG VIAL ONE (20:49)
[2017-11-15] MEDS ORDERED: CEFTRIAXONE 2 GM/D5W RTU 2 GM/50 ML RTUPB IV ONE (20:59)
[2017-11-15] MEDS ORDERED: LIDOCAINE 1%/EPINEPHRINE INJ 20 ML VIAL INJ ONE (21:00)
[2017-11-15] MEDS ORDERED: METOCLOPRAMIDE HCL INJ/PF 10 MG/2 ML SDV IV ONE (21:01)
[2017-11-15] MEDS ORDERED: DIPHENHYDRAMINE HCL 50 MG/ML VIAL IV ONE (21:02)
--- NOTE | 2017-11-15 21:04 | ER Document Report ---
ED General - General Chief Complaint: Headache >24 hrs old Stated Complaint: HEADACHE Time Seen by Provider: 11/15/17 17:47 Mode of Arrival: Ambulatory Information source: Patient Notes: This is a 32-year-old female presenting to the emergency room with headache, fever, rash, nausea, vomiting and diarrhea. Patient states she started having a headache on Monday. She states that she started getting nausea and vomiting today and started developing a rash. Patient complains of a stiff neck. She does state that this is "the worst headache of her life". TRAVEL OUTSIDE OF THE [place] IN LAST 30 DAYS: No - HPI Onset: Last week Onset/Duration: Gradual Quality of pain: Dull Severity: Severe Pain Level: 5 Associated symptoms: Chills, Nonproductive cough, Diarrhea, Fever, Nausea, Vomiting Exacerbated by: Movement Relieved by: Denies Similar symptoms previously: No Recently seen / treated by doctor: No - Related Data Allergies/Adverse Reactions: No Known Allergies Allergy (Verified 11/15/17 17:05) Past Medical History - General Information source: Patient - Social History Smoking Status: Never Smoker Cigarette use (# per day): No Chew tobacco use (# tins/day): No Frequency of alcohol use: None Drug Abuse: None Lives with: Family Family History: Hypertension. denies: Arthritis, CAD, COPD, CVA, DM, Hyperlipidemia, Malignancy, Thyroid Disfunction Patient has suicidal ideation: No Patient has homicidal ideation: No - Past Medical History Cardiac Medical History: Reports: Hx Hypertension - no meds Renal/ Medical History: Denies: Hx Ovarian Cysts, Hx Peritoneal Dialysis GI Medical History: Reports: Hx Gastroesophageal Reflux Disease Musculoskeletal Medical History: Reports Hx Musculoskeletal Trauma Past Surgical History: Reports: Hx Section - Immunizations Immunizations up to date: Yes Hx Diphtheria, Pertussis, Tetanus Vaccination: Yes Review of Systems - Review of Systems Constitutional: Chills, Fever EENT: No symptoms reported Cardiovascular: denies: Chest pain, Palpitations, Heart racing Respiratory: Cough Gastrointestinal: Diarrhea, Nausea, Vomiting. denies: Abdominal pain Genitourinary: denies: Burning, Dysuria, Discharge Female Genitourinary: No symptoms reported Musculoskeletal: No symptoms reported Skin: Rash Hematologic/Lymphatic: No symptoms reported Neurological/Psychological: Headaches. denies: Confusion, Dementia Physical Exam - Vital signs Vitals: Temp Pulse Resp BP Pulse Ox 100.2 F 109 H 16 110/79 97 11/15/17 17:11 11/15/17 17:11 11/15/17 17:11 11/15/17 17:11 11/15/17 17:11 Notes: Physical exam: GENERAL: 32-year-old female, alert oriented 3, she is complaining of a headache , there is no photophobia. HEAD: Atraumatic, normocephalic. EYES: Pupils equal round and reactive to light, extraocular movements intact, sclera anicteric, conjunctiva are normal. ENT: TMs normal, nares patent, oropharynx clear without exudates. Moist mucous membranes. NECK: She does complain of some stiffness. But she is able to perform range of motion but this does elicit pain. There is no obvious swelling or masses.. LUNGS: Breath sounds clear to auscultation bilaterally and equal. No wheezes rales or rhonchi. HEART: Regular rate and rhythm without murmurs, rubs or gallops. ABDOMEN: Soft, normoactive bowel sounds. No tenderness to palpation. No guarding, no rebound. No masses appreciated. EXTREMITIES: Normal range of motion, no pitting or edema. No clubbing or cyanosis. NEUROLOGICAL: Cranial nerves II through XII grossly intact. She does not have photophobia. She does have somewhat of a stiff neck. Brudzinski's negative. Kernig's elicits some irritation. Normal speech, moving all extremities. PSYCH: Normal mood, normal affect. SKIN: She does have a diffuse maculopapular rash on the lower extremities, trunk , back. There is no petechiae Course - Re-evaluation Re-evalutation: 11/16/17 00:42 Note: There is a bit of a social issue here. The patient's is out of town at work and the patient has no family in the area. She is with a toddler. He has not had any evidence of infection. He does go to daycare and his immunizations are up-to-date. The patient's symptoms are consistent with meningitis and her CSF does show white cells. There is some red blood cells and the white blood cell to red blood cell ratio is not enough to explain the amount of white cells. Hence, she most likely has meningitis. Given her appearance, this is most likely viral. She has been covered with IV antibiotics. - Vital Signs Vital signs: Temp Pulse Resp BP Pulse Ox 103.0 F H 101 H 26 H 130/77 H 96 11/16/17 02:01 11/15/17 20:48 11/16/17 02:02 11/16/17 02:01 11/16/17 00:20 - Laboratory Result Diagrams: 11/15/17 18:55 11/15/17 18:55 Laboratory results interpreted by me: 11/15/17 11/15/17 11/15/17 18:40 18:55 18:55 Plt Count 140 L Sodium 132.1 L Chloride 93 L BUN 24 H Creatinine 1.72 H Est GFR ( Amer) 41 L Est GFR (Non-Af Amer) 34 L Direct Bilirubin 0.5 H AST 77 H ALT 74 H Urine Protein 30 H CSF WBC 11/15/17 11/15/17 22:30 22:30 Plt Count Sodium Chloride BUN Creatinine Est GFR ( Amer) Est GFR (Non-Af Amer) Direct Bilirubin AST ALT Urine Protein CSF WBC 38 H 30 H Procedures - Lumbar Puncture Lumbar puncture Time completed: 03:24 Consent obtained: Yes Lumbar puncture pre-procedure: Chloraprep applied, Sterile drapes applied Patient position: Sitting Needle size: 22 Lumbar puncture location: l4-5 Anesthetic type: 1% Lidocaine w/epi mL's of anesthetic: 5 Amount/type of drainage: 4cc Number of attempts: 2 Complications: No Critical Care Note - Critical Care Note Total time excluding time spent on procedures (mins): 50 Discharge - Discharge Clinical Impression: Meningitis Condition: Stable Disposition: ADMITTED INPATIENT Admitting Provider: Hospitalist - Dr Jones Unit Admitted: Medical Floor
--- NOTE | 2017-11-15 21:51 | RADIOLOGY REPORT (SQ) ---
EXAM DESCRIPTION: CT HEAD WITHOUT COMPLETED DATE/TIME: 11/15/2017 9:38 pm REASON FOR STUDY: severe carreno COMPARISON: None. TECHNIQUE: Axial images acquired through the brain without intravenous contrast. Images reviewed wi th bone, brain and subdural windows. Images stored on PACS. All CT scanners at this facility use dose modulation, iterative reconstruction, and/or weight based d osing when appropriate to reduce radiation dose to as low as reasonably achievable (ALARA). [facility]: Dose Right [facility]: CareDose [facility]: Dose Right [facility]: Teradose 4D [facility]: Codewars RADIATION DOSE: CT Rad equipment meets quality standard of care and radiation dose reduction techniq ues were employed. CTDIvol: 53.2 mGy. DLP: 1017 mGy-cm. mGy. LIMITATIONS: None. FINDINGS: VENTRICLES: Normal size and contour. CEREBRUM: No masses. No hemorrhage. No midline shift. No evidence for acute infarction. Normal gra y/white matter differentiation. No areas of low density in the white matter. CEREBELLUM: No masses. No hemorrhage. No alteration of density. No evidence for acute infarction. EXTRAAXIAL SPACES: No fluid collections. No masses. ORBITS AND GLOBE: No intra- or extraconal masses. Normal contour of globe without masses. CALVARIUM: No fracture. PARANASAL SINUSES: No fluid. Maxillary sinus mucous retention cyst. . SOFT TISSUES: No mass or hematoma. OTHER: No other significant finding. IMPRESSION: No acute intracranial findings. EVIDENCE OF ACUTE STROKE: NO. COMMENT: Quality ID # [id number]: Final reports with documentation of one or more dose reduction techniques (e.g., Automated exposure control, adjustment of the mA and/or kV according to patient size, use of iterative reconstruction technique) TECHNICAL DOCUMENTATION: JOB ID: [id number] [place]-72 2010 [employer]- All Rights Reserved Reading location - IP/workstation name: [employer]
[2017-11-15 23:11] LABS: GLUCOSE,CSF 60 mg/dL (40-70); PROTEIN,CSF 45 mg/dL (12-60)
[2017-11-15 23:45] LABS: APPEARANCE ALL TUBES CLEAR; COLOR ALL TUBES COLORLESS; VOLUME TUBE 1 0.8 CC
[2017-11-15 23:46] LABS: CSF TOTAL VOLUME 3.3 CC; RED BLOOD CELL,CSF 480 /uL (0-10); VOLUME TUBE 3 0.5 CC
[2017-11-15 23:47] LABS: WHITE BLOOD CELL,CSF 38 /uL (0-5)
[2017-11-15 23:48] LABS: CSF TUBE NUMBER 4
[2017-11-15 23:49] LABS: APPEARANCE ALL TUBES CLEAR; COLOR ALL TUBES COLORLESS; CSF TOTAL VOLUME 3.3 CC; VOLUME TUBE 1 0.8 CC; VOLUME TUBE 3 0.5 CC
[2017-11-15 23:50] LABS: RED BLOOD CELL,CSF 347 /uL (0-10); WHITE BLOOD CELL,CSF 30 /uL (0-5)
[2017-11-15 23:52] LABS: CSF TUBE NUMBER 1
[2017-11-16] MEDS ORDERED: OXYCODONE-ACETAMINOPHEN 5-325 MG TABLET PO PRN (01:10)
[2017-11-16] MEDS ORDERED: VANCOMYCIN HCL 1,500 MG in DEXTROSE 5%-WATER 250 ML IV ONE (01:10)
[2017-11-16] MEDS ORDERED: KETOROLAC TROMETHAMINE INJ/PF 30 MG/1 ML SDV IV PRN (01:10)
[2017-11-16] MEDS ORDERED: NORMAL SALINE 1000 ML 1,000 ML IV PRN ×3 (01:15→17:17)
[2017-11-16] MEDS ORDERED: VANCOMYCIN HCL INJ 1000 MG VIAL IV PRN (01:42)
[2017-11-16] MEDS ORDERED: VANCOMYCIN HCL 2,000 MG in DEXTROSE 5%-WATER 500 ML IV ONE (02:00)
[2017-11-16] MEDS: ACETAMINOPHEN 325 MG TABLET PO PRN (02:05)
[2017-11-16 05:10] LABS: ABSOLUTE LYMPHOCYTES (AUTO) 1.3 10^3/uL (0.5-4.7); ABSOLUTE MONOCYTES (AUTO) 0.3 10^3/uL (0.1-1.4); ABSOLUTE NEUT (AUTO) 4.7 10^3/uL (1.7-8.2); BASOPHILS % (AUTO) 0.3 % (0-2); HEMATOCRIT 32.2 % (36.0-47.0); HEMOGLOBIN 11.1 g/dL (12.0-15.5); LYMPHOCYTES % (AUTO) 20.4 % (13-45); MEAN CORPUSCULAR HGB CONC 34.6 g/dL (32.0-36.0); MEAN CORPUSCULAR VOLUME 81 fl (80-97); MONOCYTES % (AUTO) 4.2 % (3-13); PLATELET COUNT 120 10^3/uL (150-450); RED BLOOD COUNT 3.99 10^6/uL (3.72-5.28); SEGMENTED NEUTROPHILS % (AUTO) 75.1 % (42-78); TOTAL CELLS COUNTED % (AUTO) 100 %; WHITE BLOOD COUNT 6.3 10^3/uL (4.0-10.5)
[2017-11-16] MEDS: HEPARIN SOD (PORCINE) 5,000 UNIT/ML 1 ML SYRINGE SUBCUT SCH ×3 (05:40→21:41)
--- NOTE | 2017-11-16 06:36 | PDOC H&P ---
History of Present Illness Admission Date/PCP: 11/16/17 01:16 Patient complains of: Headache and fever History of Present Illness: LUDIVINA ARRIOLA is a 32 year old female without significant past medical history who presents the emergency room with 48 hours of severe headache, stiff neck, photophobia fever, left lower extremity rash, nausea vomiting and diarrhea. She denies recent travel, infectious contacts or mosquito exposure. In the emergency room she is found to have acute renal failure, mildly elevated LFTs, fever and lumbar puncture concerning for meningitis. She is placed on empiric antibiotics and for the hospitalist for admission. She denies previous episode or new medications. She admits feeling significantly improved after LP with less headache and neck stiffness. Past Medical History Cardiac Medical History: Reports: Hypertension - no meds GI Medical History: Reports: Gastroesophageal Reflux Disease Psychiatric Medical History: Denies: Alcohol Dependency, Bipolar Disorder, Dementia, Depression, General Anxiety Disorder, Substance Abuse, Tobacco Dependency Past Surgical History Past Surgical History: Reports: Section Social History Information Source: Patient, [facility] Records Lives with: Family Smoking Status: Never Smoker Frequency of Alcohol Use: None Hx Recreational Drug Use: No Drugs: None Hx Prescription Drug Abuse: No - Advance Directive Resuscitation Status: Full Code Family History Family History: Hypertension. denies: Arthritis, CAD, COPD, CVA, DM, Hyperlipidemia, Malignancy, Thyroid Disfunction Parental Family History Reviewed: Yes Children Family History Reviewed: Yes Sibling(s) Family History Reviewed.: Yes Medication/Allergy Home Medications: No Home Medications 11/06/17 Allergies/Adverse Reactions: No Known Allergies Allergy (Verified 11/15/17 17:05) Review of Systems Constitutional: ABSENT: chills, fever(s), headache(s), weight gain, weight loss Eyes: ABSENT: visual disturbances Ears: ABSENT: hearing changes Cardiovascular: ABSENT: chest pain, dyspnea on exertion, edema, orthropnea, palpitations Respiratory: ABSENT: cough, hemoptysis Gastrointestinal: ABSENT: abdominal pain, constipation, diarrhea, hematemesis, hematochezia, nausea, vomiting Genitourinary: ABSENT: dysuria, hematuria Musculoskeletal: ABSENT: joint swelling Integumentary: ABSENT: rash, wounds Neurological: ABSENT: abnormal gait, abnormal speech, confusion, dizziness, focal weakness, syncope Psychiatric: ABSENT: anxiety, depression, homidical ideation, suicidal ideation Endocrine: ABSENT: cold intolerance, heat intolerance, polydipsia, polyuria Hematologic/Lymphatic: ABSENT: easy bleeding, easy bruising Physical Exam Vital Signs: Temp Pulse Resp BP Pulse Ox 98.1 F 99 18 113/64 99 11/16/17 03:00 11/16/17 03:00 11/16/17 03:00 11/16/17 03:00 11/16/17 03:00 Intake & Output 11/14/17 11/15/17 11/16/17 11:59 11:59 11:59 Intake Total 1000 Balance 1000 Weight 95.5 kg General appearance: PRESENT: no acute distress, well-developed, well-nourished Head exam: PRESENT: atraumatic, normocephalic Eye exam: PRESENT: conjunctiva pink, EOMI, PERRLA. ABSENT: scleral icterus Ear exam: PRESENT: normal external ear exam Mouth exam: PRESENT: moist, tongue midline Neck exam: ABSENT: carotid bruit, JVD, lymphadenopathy, thyromegaly Respiratory exam: PRESENT: clear to auscultation jad. ABSENT: rales, rhonchi, wheezes Cardiovascular exam: PRESENT: RRR. ABSENT: diastolic murmur, rubs, systolic murmur Pulses: PRESENT: normal dorsalis pedis pul Vascular exam: PRESENT: normal capillary refill GI/Abdominal exam: PRESENT: normal bowel sounds, soft. ABSENT: distended, guarding, mass, organolmegaly, rebound, tenderness Rectal exam: PRESENT: deferred Extremities exam: PRESENT: full ROM. ABSENT: calf tenderness, clubbing, pedal edema Neurological exam: PRESENT: alert, awake, oriented to person, oriented to place , oriented to time, oriented to situation, CN II-XII grossly intact. ABSENT: motor sensory deficit Psychiatric exam: PRESENT: appropriate affect, normal mood. ABSENT: homicidal ideation, suicidal ideation Skin exam: PRESENT: dry, intact, warm. ABSENT: cyanosis, rash Results Laboratory Results: 11/16/17 03:56 11/16/17 03:56 WBC 6.3 RBC 3.99 Hgb 11.1 L Hct 32.2 L MCV 81 MCH 28.0 MCHC 34.6 RDW 14.0 Plt Count 120 L Seg Neutrophils % 75.1 Lymphocytes % 20.4 Monocytes % 4.2 Eosinophils % 0.0 Basophils % 0.3 Absolute Neutrophils 4.7 Absolute Lymphocytes 1.3 Absolute Monocytes 0.3 Absolute Eosinophils 0.0 Absolute Basophils 0.0 Impressions: Head CT 11/15/17 20:59 IMPRESSION: No acute intracranial findings. EVIDENCE OF ACUTE STROKE: NO. Assessment & Plan - Diagnosis (1) Meningitis Is this a current diagnosis for this admission?: Yes Plan: Likely aseptic given constellation of symptoms. That said medical floor admission with isolation, empiric antibiotics and symptomatic management. Follow-up blood culture and CSF analysis. (2) Acute renal failure Is this a current diagnosis for this admission?: Yes Plan: Likely secondary to acute illness, somewhat prerenal, avoid nephrotoxic meds and doses IV fluid challenge and reevaluate chemistry. - Time Time Spent: 50 to 70 Minutes - Inpatient Certification Medical Necessity: Need Close Monitoring Due to Risk of Patient Decompensation
--- NOTE | 2017-11-16 17:19 | PDOC PROGRESS REPORT ---
Subjective Progress Note for:: 11/16/17 Subjective:: Ms. Bernabe is a 32-year-old -[place] female who initially presented with headaches, body aches, fever and chills and generalized rashes. She was initially admitted for possible meningitis. No acute event overnight. Patient patient was seen this morning. Upon encounter, patient was comfortable. She is fully oriented and very coherent. She says she continues to have mild headache and photophobia. She continues to have generalized maculopapular rashes. She denies any nausea or vomiting. Denies neck stiffness. She says she went to [place] a few weeks ago but this was only in [place]. She denies any recent camping or going to hiking or jogging trails. Reason For Visit: MENIGITIS Physical Exam Vital Signs: Temp Pulse Resp BP Pulse Ox 99.2 F 99 12 110/75 99 11/16/17 07:33 11/16/17 07:33 11/16/17 07:33 11/16/17 07:33 11/16/17 07:33 Intake & Output 11/15/17 11/16/17 11/17/17 06:59 06:59 06:59 Intake Total 1250 1766 Balance 1250 1766 Weight 210 lb 8.663 oz General appearance: PRESENT: no acute distress, well-developed, well-nourished Head exam: PRESENT: atraumatic, normocephalic Eye exam: PRESENT: conjunctiva pink, EOMI, PERRLA. ABSENT: scleral icterus Ear exam: PRESENT: normal external ear exam Mouth exam: PRESENT: moist, tongue midline Neck exam: ABSENT: carotid bruit, JVD, lymphadenopathy, thyromegaly Respiratory exam: PRESENT: clear to auscultation jad. ABSENT: rales, rhonchi, wheezes Cardiovascular exam: PRESENT: RRR. ABSENT: diastolic murmur, rubs, systolic murmur Pulses: PRESENT: normal dorsalis pedis pul GI/Abdominal exam: PRESENT: normal bowel sounds, soft. ABSENT: distended, guarding, mass, organolmegaly, rebound, tenderness Rectal exam: PRESENT: deferred Neurological exam: PRESENT: alert - Negative nuchal rigidity, negative Kernig's or Brudzinski's signs, awake, oriented to person, oriented to place, oriented to time, oriented to situation, CN II-XII grossly intact. ABSENT: motor sensory deficit Results Laboratory Results: 11/16/17 03:56 11/16/17 11/16/17 03:56 03:56 WBC 6.3 RBC 3.99 Hgb 11.1 L Hct 32.2 L MCV 81 MCH 28.0 MCHC 34.6 RDW 14.0 Plt Count 120 L Seg Neutrophils % 75.1 Lymphocytes % 20.4 Monocytes % 4.2 Eosinophils % 0.0 Basophils % 0.3 Absolute Neutrophils 4.7 Absolute Lymphocytes 1.3 Absolute Monocytes 0.3 Absolute Eosinophils 0.0 Absolute Basophils 0.0 Serum HCG, Qual NEGATIVE Impressions: Head CT 11/15/17 20:59 IMPRESSION: No acute intracranial findings. EVIDENCE OF ACUTE STROKE: NO. Assessment & Plan - Diagnosis (1) Tick-borne disease Is this a current diagnosis for this admission?: Yes Plan: Patient's clinical presentation including fever, chills, vomiting, diarrhea and generalized rashes along with hyponatremia, transaminitis and thrombocytopenia are more consistent with a tickborne related disease particularly [place] spotted fever or ehrlichiosis with the former being higher in the differential diagnosis. Discussed with ID who does have the same thought. Agree with ID recommendation to start doxycycline. Will send for Ehrlichia PCR panel and RMSF serology. (2) Aseptic meningitis Is this a current diagnosis for this admission?: Yes Plan: Possible aseptic meningitis. Noted CSF results. CSF Gram stain is negative. Patient's clinical presentation and lab results are more consistent with a tickborne illness. Discussed with ID and will continue Rocephin for now for the next day or 2. Discontinue vancomycin. (3) Acute renal failure Is this a current diagnosis for this admission?: Yes Plan: Likely prerenal. Continue IV fluids. Repeat BMP. - Time Time Spent with patient: 25-34 minutes
[2017-11-16] MEDS: DOXYCYCLINE HYCLATE 100 MG TABLET PO SCH (17:31)
[2017-11-16 17:58] LABS: ANION GAP 10 (5-19); BLOOD UREA NITROGEN 11 mg/dL (7-20); CALCIUM 8.1 mg/dL (8.4-10.2); CARBON DIOXIDE 22 mmol/L (22-30); CHLORIDE 104 mmol/L (98-107); GLUCOSE 114 mg/dL (75-110); POTASSIUM 3.9 mmol/L (3.6-5.0); SODIUM 136.1 mmol/L (137-145)
[2017-11-16] MEDS: CEFTRIAXONE SODIUM 2,000 MG in NORMAL SALINE 100 ML IV SCH (21:49)
--- NOTE | 2017-11-16 22:02 | Progress Note ---
Provider Note Provider Note: ID Consult Note Asked to review patient's chart and discussed via telephone earlier this afternoon with Dr Melchor. Pt not seen or examined. Ms. Rider is a 32 year old woman who presented overnight on 11/15/17 with complaint of severe REYNOLDS, fever, rash and nausea, vomiting and diarrhea, with onset 48h prior. Pt had no altered mental status, decreased level of consciousness, confusion, focal neuro deficits. She had no recent travel. No mosquito bites or sick contacts. She has a child who is a toddler at home who she reports is up to date on vaccines, attends daycare, and is well. Pt was found to have Tmax 103 F and on exam somewhat of a stiff neck with Kernig's sign but negative Brudzinski's on exam documented in the ED prior to LP. She has been noted to have a maculopapular rash on the lower extremities, trunk and back with no petechiae. Her labs revealed normal peripheral WBC count, elevated serum creatinine 1.72 suggesting TANIYA, platelets initially 140 then 120 today, and AST and ALT mildly elevated in the 70s with normal bilirubin. CSF described as clear, colorless, WBC 30 (32% PMN, 40% lymphs, 27 monos), glucose 60, protein 45. CSF gram stain no organisms , cx without growth x 1 day. BCx sent, pending. Monospot also performed, negative. Impression/Recommendations Agree, this is most likely aseptic meningitis, likely viral meningitis. CSF formula with no hypoglycorrhachia, normal protein, low WBC count with mononuclear cell or lymphocytic predominance, and no organisms on Gram stain in a patient who is young and otherwise healthy - all of this taken together is consistent with aseptic meningitis, of which a viral etiology would be most suspicious. In late summer/early fall, enterovirus meningitis would be a prime consideration. Enteroviruses can be associated with a maculopapular rash. If there is the possibility of adding on PCR for Enterovirus to the CSF in the lab, that would help confirm. If enteroviral meningitis, no specific treatment indicated or available - would need supportive care. Less likely possibilities: - tick borne illness such as [place] Spotted Fever Can cause fever, headache, and rash in patient in [facility] in summertime with abnormal transaminases and mild thrombocytopenia. Rash with RMSF typically starts on the extremities (wrists, ankles) then spreads to the trunk and can appear as blanching macules/maculopapular before becoming petechial. Patients can have meningismus on exam. With regard to possibility of RMSF, some major labs may offer PCR, but usually the diagnosis usually ends up being made retrospectively based on paired serologies (acute and then 2 weeks later a convalescent sample, sent to the same lab) in conjunction with compatible history and clinical presentation, laboratory abnormalities. History that may be helpful would be regarding the evolution of the rash, known tick bite in last 1-2 weeks, or time outdoors in wooded area suspicious for tick exposure. Repeat LFTs and CBC may be helpful to see if there is persistence of abnormalities. If based on history RMSF is plausible, then treating the patient with doxycycline 100 mg BID empirically would be indicated and would be continued for 7 days. If an alternative etiology accounts for patient's presentation, then doxycycline may not be needed. - meningococcal meningitis CSF profile is not suggestive of a bacterial etiology, and typically rash is petechial instead of maculopapular. This is a remote consideration, particularly with CSF gram stain negative and no growth x1 day. If CSF still negative tomorrow, Rocephin should be discontinued. Vancomycin, which empirically had been given on admission, does not need to continue for possibility of a resistant pneumococcus. Nj Kay MD [facility] Infectious Diseases pager [phone]
[2017-11-17] MEDS: ACETAMINOPHEN 325 MG TABLET PO PRN (00:07)
[2017-11-17 05:29] LABS: ABSOLUTE LYMPHOCYTES (AUTO) 1.8 10^3/uL (0.5-4.7); ABSOLUTE MONOCYTES (AUTO) 0.3 10^3/uL (0.1-1.4); ABSOLUTE NEUT (AUTO) 3.9 10^3/uL (1.7-8.2); BASOPHILS % (AUTO) 0.4 % (0-2); EOSINOPHILS % (AUTO) 0.2 % (0-6); HEMATOCRIT 32.2 % (36.0-47.0); HEMOGLOBIN 11.1 g/dL (12.0-15.5); LYMPHOCYTES % (AUTO) 29.8 % (13-45); MEAN CORPUSCULAR HEMOGLOBIN 27.8 pg (27.0-33.4); MEAN CORPUSCULAR HGB CONC 34.4 g/dL (32.0-36.0); MEAN CORPUSCULAR VOLUME 81 fl (80-97); PLATELET COUNT 149 10^3/uL (150-450); RED BLOOD COUNT 3.99 10^6/uL (3.72-5.28); RED CELL DISTRIBUTION WIDTH 13.9 % (11.5-14.0); SEGMENTED NEUTROPHILS % (AUTO) 64.6 % (42-78); TOTAL CELLS COUNTED % (AUTO) 100 %
[2017-11-17] MEDS: HEPARIN SOD (PORCINE) 5,000 UNIT/ML 1 ML SYRINGE SUBCUT SCH ×3 (05:43→21:30)
[2017-11-17] MEDS: DOXYCYCLINE HYCLATE 100 MG TABLET PO SCH ×2 (05:49→18:15)
[2017-11-17 09:19] LABS: ALANINE AMINOTRANSFERASE 82 U/L (9-52); ALKALINE PHOSPHATASE 79 U/L (38-126); ANION GAP 12 (5-19); ASPARTATE AMINO TRANSFERASE 91 U/L (14-36); BILIRUBIN,DIRECT 0.4 mg/dL (0.0-0.4); BILIRUBIN,TOTAL 0.4 mg/dL (0.2-1.3); BLOOD UREA NITROGEN 10 mg/dL (7-20); CALCIUM 8.5 mg/dL (8.4-10.2); CARBON DIOXIDE 23 mmol/L (22-30); CHLORIDE 105 mmol/L (98-107); GLUCOSE 110 mg/dL (75-110); POTASSIUM 3.9 mmol/L (3.6-5.0); SODIUM 139.7 mmol/L (137-145); TOTAL PROTEIN 6.6 g/dL (6.3-8.2)
[2017-11-17] MEDS ORDERED: CEFTRIAXONE 2 GM/D5W RTU 2 GM/50 ML RTUPB IV SCH (10:00)
--- NOTE | 2017-11-17 18:06 | PDOC PROGRESS REPORT ---
Subjective Progress Note for:: 11/17/17 Subjective:: Ms. Bernabe is a 32-year-old -[place] female who initially presented with headaches, body aches, fever and chills and generalized rashes. She was initially admitted for possible meningitis. No acute event overnight. Patient patient was seen this morning. Upon encounter this morning, patient appears comfortable. She says she feels much better today. She says that the headache and photophobia have resolved. She continues to have generalized maculopapular rashes. No fever or chills. Denies neck stiffness. She is tolerating diet well. Reason For Visit: MENIGITIS Physical Exam Vital Signs: Temp Pulse Resp BP Pulse Ox 98.5 F 88 20 106/62 100 11/17/17 11:17 11/17/17 11:17 11/17/17 11:17 11/17/17 11:17 11/17/17 11:17 Intake & Output 11/16/17 11/17/17 11/18/17 06:59 06:59 06:59 Intake Total 420 Balance 420 Weight 214 lb 15.211 oz General appearance: PRESENT: no acute distress, well-developed, well-nourished Head exam: PRESENT: atraumatic, normocephalic Eye exam: PRESENT: conjunctiva pink, EOMI, PERRLA. ABSENT: scleral icterus Mouth exam: PRESENT: moist, tongue midline Neck exam: ABSENT: carotid bruit, JVD, lymphadenopathy, thyromegaly Respiratory exam: PRESENT: clear to auscultation jad. ABSENT: rales, rhonchi, wheezes Cardiovascular exam: PRESENT: RRR. ABSENT: diastolic murmur, rubs, systolic murmur Pulses: PRESENT: normal dorsalis pedis pul GI/Abdominal exam: PRESENT: normal bowel sounds, soft. ABSENT: distended, guarding, mass, organolmegaly, rebound, tenderness Rectal exam: PRESENT: deferred Neurological exam: PRESENT: alert, awake, oriented to person, oriented to place , oriented to time, oriented to situation, CN II-XII grossly intact, other - No nuchal rigidity. Negative Kernig, negative Brudzinski signs.. ABSENT: motor sensory deficit Skin exam: PRESENT: rash - Generalized maculopapular rashes on the legs arms abdomen and back Results Laboratory Results: 11/17/17 04:23 11/17/17 04:23 11/17/17 11/17/17 04:23 04:23 WBC 6.0 RBC 3.99 Hgb 11.1 L Hct 32.2 L MCV 81 MCH 27.8 MCHC 34.4 RDW 13.9 Plt Count 149 L Seg Neutrophils % 64.6 Lymphocytes % 29.8 Monocytes % 5.0 Eosinophils % 0.2 Basophils % 0.4 Absolute Neutrophils 3.9 Absolute Lymphocytes 1.8 Absolute Monocytes 0.3 Absolute Eosinophils 0.0 Absolute Basophils 0.0 Sodium 139.7 Potassium 3.9 Chloride 105 Carbon Dioxide 23 Anion Gap 12 BUN 10 Creatinine 0.92 Est GFR ( Amer) > 60 Est GFR (Non-Af Amer) > 60 Glucose 110 Calcium 8.5 Total Bilirubin 0.4 AST 91 H ALT 82 H Alkaline Phosphatase 79 Total Protein 6.6 Albumin 3.0 L Impressions: Head CT 11/15/17 20:59 IMPRESSION: No acute intracranial findings. EVIDENCE OF ACUTE STROKE: NO. Assessment & Plan - Diagnosis (1) Aseptic meningitis Is this a current diagnosis for this admission?: Yes Plan: Possible aseptic meningitis. Noted CSF results. CSF Gram stain is negative. Vancomycin discontinued yesterday. We will discontinue Rocephin today. (2) Tick-borne disease Is this a current diagnosis for this admission?: Yes Plan: Possible tickborne disease. Patient's clinical presentation including fever, chills, vomiting, diarrhea and generalized rashes along with hyponatremia, transaminitis and thrombocytopenia suggestive of a tickborne related disease particularly [place] spotted fever or ehrlichiosis with the former being higher in the differential diagnosis. Continue doxycycline. (3) Acute renal failure Is this a current diagnosis for this admission?: Yes Plan: Resolving. Likely prerenal. Patient is having good oral intake. (4) Thrombocytopenia Is this a current diagnosis for this admission?: Yes Plan: Platelet count is improving. - Time Time Spent with patient: 15-24 minutes
[2017-11-17] MEDS: CEFTRIAXONE SODIUM 2,000 MG in NORMAL SALINE 100 ML IV SCH (21:29)
[2017-11-17] MEDS ORDERED: PROMETHAZINE HCL 6.25 MG/5 ML SYRUP 60 ML PO ONE (21:58)
[2017-11-17] MEDS: MAG HYDROX/AL HYDROX/SIMETH SUSP 30 ML UDCUP PO PRN (22:00)
[2017-11-17] MEDS ORDERED: PROMETHAZINE HCL 6.25 MG/5 ML SYRUP 60 ML ONE (22:59)
[2017-11-18] MEDS: DOXYCYCLINE HYCLATE 100 MG TABLET PO SCH ×2 (05:32→17:21)
[2017-11-18] MEDS: HEPARIN SOD (PORCINE) 5,000 UNIT/ML 1 ML SYRINGE SUBCUT SCH ×3 (05:34→21:12)
[2017-11-18] MEDS: CEFTRIAXONE SODIUM 2,000 MG in NORMAL SALINE 100 ML IV SCH (21:13)
[2017-11-18] MEDS: ACETAMINOPHEN 325 MG TABLET PO PRN (21:13)
[2017-11-19] MEDS: DOXYCYCLINE HYCLATE 100 MG TABLET PO SCH (06:28)
[2017-11-19] MEDS: HEPARIN SOD (PORCINE) 5,000 UNIT/ML 1 ML SYRINGE SUBCUT SCH ×2 (06:28→14:44)
[2017-11-19] MEDS: MAG HYDROX/AL HYDROX/SIMETH SUSP 30 ML UDCUP PO PRN (07:15)
[2017-11-19 12:18] VITALS: BP 135/90
--- NOTE | 2017-11-19 12:52 | PDOC DISCHARGE SUMMARY ---
General - Admit/Disc Date/PCP Admission Date/Primary Care Provider: 11/16/17 13:10 Discharge Date: 11/19/17 - Discharge Diagnosis (1) Aseptic meningitis Is this a current diagnosis for this admission?: Yes (2) Tick-borne disease Is this a current diagnosis for this admission?: Yes (3) Acute renal failure Is this a current diagnosis for this admission?: Yes (4) Thrombocytopenia Is this a current diagnosis for this admission?: Yes - Additional Information Resuscitation Status: Full Code Prescriptions: Doxycycline Hyclate [Vibramycin 100 mg Tablet] 100 mg PO BID #14 tablet Loratadine 10 mg PO DAILY PRN #5 tab.rapdis PRN Reason: Itching Omeprazole 20 mg PO DAILY #7 capsule. Home Medications: Doxycycline Hyclate [Vibramycin 100 mg Tablet] 100 mg PO BID #14 tablet Loratadine 10 mg PO DAILY PRN #5 tab.rapdis 11/19/17 Omeprazole 20 mg PO DAILY #7 capsule. 11/19/17 History of Present Illness History of Present Illness: LUDIVINA ARRIOLA is a 32 year old female without significant past medical history who presents the emergency room with 48 hours of severe headache, stiff neck, photophobia fever, left lower extremity rash, nausea vomiting and diarrhea. She denies recent travel, infectious contacts or mosquito exposure. In the emergency room she is found to have acute renal failure, mildly elevated LFTs, fever and lumbar puncture concerning for meningitis. She is placed on empiric antibiotics and for the hospitalist for admission. She denies previous episode or new medications. She admits feeling significantly improved after LP with less headache and neck stiffness. Hospital Course Hospital Course: Ms. Bernabe is a 32-year-old -[place] female with no significant PMH who initially presented with headaches, body aches, fever and chills and generalized rashes. She was initially admitted for possible meningitis. She was initially started on vancomycin and Rocephin. She had an LP and CSF fluid analysis was more consistent with aseptic meningitis. She was also noted to have hyponatremia, transaminitis and thrombocytopenia along with maculopapular rashes which were pruritic. This raised the possiblity of a tickborne illness like [place] spotted fever or less likely Ehrlichiosis. ID was also consulted. Her CSF culture was negative. Vancomycin and Rocpehin were d/teresa and she was started on Doxycycline. Patient clinically improved the next day after admission. Testing for RMSF and Ehrlichiosis were sent out but apparently will not be back until 11/21 or 11/22. Patient will be sent home on Doxycycline for 7 more days. She also agreed to be tested for HIV although she said she had a recent once 3 months ago which was negative. Her labs including sent out serologies and PCR tests and HIV test results will be forwarded to her PCP. She was also advised not to breastfeed while she is on Doxycycline. Physical Exam Vital Signs: Temp Pulse Resp BP Pulse Ox 99.2 F 105 H 20 133/85 H 100 11/19/17 07:27 11/19/17 07:27 11/19/17 07:27 11/19/17 07:27 11/19/17 07:27 Intake & Output 11/18/17 11/19/17 11/20/17 06:59 06:59 06:59 Intake Total 740 984 Balance 740 984 Weight 214 lb 15.211 oz 214 lb 8.156 oz General appearance: PRESENT: no acute distress, well-developed, well-nourished Head exam: PRESENT: atraumatic, normocephalic Eye exam: PRESENT: conjunctiva pink, EOMI, PERRLA. ABSENT: scleral icterus Ear exam: PRESENT: normal external ear exam Mouth exam: PRESENT: moist, tongue midline Respiratory exam: PRESENT: clear to auscultation jad. ABSENT: rales, rhonchi, wheezes Cardiovascular exam: PRESENT: RRR. ABSENT: diastolic murmur, rubs, systolic murmur Pulses: PRESENT: normal dorsalis pedis pul GI/Abdominal exam: PRESENT: normal bowel sounds, soft. ABSENT: distended, guarding, mass, organolmegaly, rebound, tenderness Rectal exam: PRESENT: deferred Extremities exam: PRESENT: full ROM. ABSENT: calf tenderness, clubbing, pedal edema Neurological exam: PRESENT: alert, awake, oriented to person, oriented to place , oriented to time, oriented to situation, CN II-XII grossly intact. ABSENT: motor sensory deficit Psychiatric exam: PRESENT: appropriate affect, normal mood. ABSENT: homicidal ideation, suicidal ideation Skin exam: PRESENT: rash - generalized maculoipapular rashes more prominent on the legs, also on arms and abdomen (much improved on day of discharge) Results Laboratory Results: 11/17/17 04:23 11/17/17 04:23 Impressions: Head CT 11/15/17 20:59 IMPRESSION: No acute intracranial findings. EVIDENCE OF ACUTE STROKE: NO. Qualifiers - * PATIENT BEING DISCHARGED WITH ANY OF THE FOLLOWING DIAGNOSIS: No
[2017-11-21 10:44] LABS: A. PHAGOCYTOPHILUM PCR Negative (Negative); E. CHAFFEENSIS PCR Negative (Negative)
[2017-11-22 10:34] LABS: ROCKY MTN SPOTTED FEVER IGM AB 0.32 index (0.00-0.89)
[2017-11-22 15:38] LABS: ROCKY MTN SPOTTED FEV IGG EIA Positive (Negative)
== END 2017-11-19 14:39 | disposition home or self-care (01) | DRG 98 ==
LOC: ER 17:04 → EH 11-16 01:16 → 5 11-16 03:31 → OBSVTOIN 11-16 13:10
PROVIDERS: ADMIT Internal Medicine; ATTEND Internal Medicine
PROC: 009U3ZX Drainage of Spinal Canal, Percutaneous Approach, Diagnostic (ICD-10-PCS; principal; 2017-11-16)
DX: G03.0 Nonpyogenic meningitis (principal); N17.9 Acute kidney failure, unspecified; E87.1 Hypo-osmolality and hyponatremia; D69.6 Thrombocytopenia, unspecified; I10 Essential (primary) hypertension; K21.9 Gastro-esophageal reflux disease without esophagitis; H53.149 Visual discomfort, unspecified; Z79.899 Other long term (current) drug therapy; Z82.49 Family history of ischemic heart disease and other diseases of the circulatory system; Z81.1 Family history of alcohol abuse and dependence
CPT/HCPCS: 36415; 70450; 80048; 80053; 81001; 81025; 82945; 84157; 84703; 85025; 86308; 86701; 86757; 87040; 87070; 87205; 87798; 87880; 89050; 96361; 96365; 96375; 99291; J0696; J1200; J1644; J2765; J3370; J3490; J7030; J7060

== ENCOUNTER 2018-05-06 12:24 | Emergency (ER) | payer MEDICAID, OTHER ==
[2018-05-06 14:15] VITALS: BP 133/87
--- NOTE | 2018-05-06 15:07 | ER Document Report ---
Entered by LEV WEBER SCRIBE 05/06/18 1405 Acting as scribe for:ALBERTO ANDRADE DO ED General - General Chief Complaint: Sore Throat Stated Complaint: SORE THOART Time Seen by Provider: 05/06/18 13:10 Primary Care Provider: WILLEM SIERRA MD [ACTIVE STAFF] - Follow up as needed PATRICIA GALDAMEZ MD [ACTIVE STAFF] - Follow up as needed Mode of Arrival: Ambulatory Information source: Patient Notes: Patient is a 33-year-old female presenting to the emergency department complaining of a sore throat and difficulty swallowing. Patient states that she has had intermittent tonsillar problems for several years further stating she used to receive injections from her primary care doctor when she lived outside of [place]. Patient states for the last month she has had intermittent difficulty swallowing and a sore throat further stating she has had subsequent difficulty sleeping due to snoring. Patient does not actually having of a sore throat or difficulty swallowing at this time. Patient states that she has discussed possible tonsillectomy with previous doctors but has not but has yet to receive this procedure. She also complains of missing periods as well as abdominal pain around her C- section scar for the last week. She states she has been sexually active since her last period in December. Finally patient states that she had high blood pressure at home. TRAVEL OUTSIDE OF THE [place] IN LAST 30 DAYS: No - Related Data Allergies/Adverse Reactions: No Known Allergies Allergy (Verified 05/06/18 13:09) Past Medical History - General Information source: Patient - Social History Smoking Status: Never Smoker Cigarette use (# per day): No Chew tobacco use (# tins/day): No Smoking Education Provided: No Frequency of alcohol use: None Drug Abuse: None Family History: Hypertension Patient has suicidal ideation: No Patient has homicidal ideation: No - Past Medical History Cardiac Medical History: Reports: Hx Hypertension - no meds GI Medical History: Reports: Hx Gastroesophageal Reflux Disease Musculoskeletal Medical History: Reports Hx Musculoskeletal Trauma Past Surgical History: Reports: Hx Section - Immunizations Immunizations up to date: Yes Hx Diphtheria, Pertussis, Tetanus Vaccination: Yes Review of Systems - Review of Systems Constitutional: No symptoms reported EENT: See HPI Cardiovascular: No symptoms reported Respiratory: No symptoms reported Gastrointestinal: See HPI, Abdominal pain Genitourinary: No symptoms reported Female Genitourinary: See HPI, Last menstrual period Musculoskeletal: No symptoms reported Skin: No symptoms reported Hematologic/Lymphatic: No symptoms reported Neurological/Psychological: No symptoms reported -: Yes All other systems reviewed and negative Physical Exam - Vital signs Vitals: Temp Pulse Resp BP Pulse Ox 98.2 F 84 17 134/91 H 100 05/06/18 13:05 05/06/18 13:05 05/06/18 13:05 05/06/18 13:05 05/06/18 13:05 Interpretation: Other - Pre-hypertension - Notes Notes: GENERAL: Alert, interacts well. No acute distress. HEAD: Normocephalic, atraumatic. EYES: Pupils equal, round, and reactive to light. Extraocular movements intact. ENT: Oral mucosa moist, tongue midline, 3+ tonsils, not kissing, no erythema, no exudate. Nares patent, no nasal septal hematoma, TM's intacts. Enlarged lymphnodes anteriorly. NECK: Full range of motion. Supple. Trachea midline. LUNGS: Clear to auscultation bilaterally, no wheezes, rales, or rhonchi. No respiratory distress. HEART: Regular rate and rhythm. No murmurs, gallops, or rubs. ABDOMEN: Soft, non-tender. Non-distended. Bowel sounds present in all 4 quadrants. EXTREMITIES: Moves all 4 extremities spontaneously. NEUROLOGICAL: Alert and oriented x3. Normal speech PSYCH: Normal affect, normal mood. SKIN: Warm, dry, normal turgor. No rashes or lesions noted. Course - Re-evaluation Re-evalutation: 05/06/18 14:03 Urine test is negative. No signs of acute infection in her tonsils right now, no acute symptoms. Patient is not having any difficulty swallowing or breathing. Discussed with patient that it is very important that she follow- up with an ENT as an outpatient. Patient was referred to Dr. Galdamez the ENT concrete stone finishing supervisor to discuss possible tonsillectomy or adenoidectomy as an outpatient for these recurrent symptoms related to enlarged tonsils. Patient is encouraged to follow-up with [facility] regarding irregular menses. Patient's blood pressure is not high right now. Discharged home. - Vital Signs Vital signs: Temp Pulse Resp BP Pulse Ox 98.3 F 70 17 133/87 H 100 05/06/18 14:14 05/06/18 14:14 05/06/18 14:14 05/06/18 14:14 05/06/18 14:14 Discharge - Discharge Clinical Impression: Enlarged tonsils, Irregular menses Condition: Stable Disposition: HOME, SELF-CARE Additional Instructions: Today your test is negative. I do not know why you are no longer regular mestrual cycles. I would encourage you to follow-up with [facility] as an outpatient for further hormonal workup or testing. Today your tonsils are enlarged but they do not appear infected. There is no indication for steroids, steroids do not help with chronically enlarged tonsils. Please follow-up with Dr. Galdamez, the ENT concrete stone finishing supervisor. Referrals: PATRICIA GALDAMEZ MD [ACTIVE STAFF] - Follow up as needed WILLEM SIERRA MD [ACTIVE STAFF] - Follow up as needed Scribe Attestation: 05/06/18 15:07 I personally performed the services described in the documentation, reviewed and edited the documentation which was dictated to the scribe in my presence, and it accurately records my words and actions. I personally performed the services described in the documentation, reviewed and edited the documentation which was dictated to the scribe in my presence, and it accurately records my words and actions.
== END 2018-05-06 14:14 | disposition home or self-care (01) ==
LOC: ER 12:24
DX: J35.1 Hypertrophy of tonsils (principal); N92.6 Irregular menstruation, unspecified; J02.9 Acute pharyngitis, unspecified; R13.10 Dysphagia, unspecified; I10 Essential (primary) hypertension
CPT/HCPCS: 81025; 99283

== ENCOUNTER 2018-05-26 19:45 | Emergency (ER) | payer MEDICAID ==
[2018-05-26 20:00] VITALS: BP 146/97
== END 2018-05-26 20:00 | disposition left against medical advice (07) ==
LOC: ER 19:45
DX: Z53.21 Procedure and treatment not carried out due to patient leaving prior to being seen by health care provider (principal)

== ENCOUNTER 2018-05-28 11:07 | Emergency (ER) | payer SELFPAY ==
[2018-05-28] MEDS ORDERED: IPRATROPIUM/ALBUTEROL 0.5-2.5 MG/3 ML AMPUL NEB ONE (11:35)
[2018-05-28] MEDS ORDERED: GUAIFENESIN 600 MG TABLET.SA PO ONE (11:35)
[2018-05-28] MEDS ORDERED: KETOROLAC TROMETHAMINE 10 MG TABLET PO ONE (11:35)
--- NOTE | 2018-05-28 11:45 | ER Document Report ---
ED General - General Chief Complaint: Chest Pain Stated Complaint: CHEST PAIN Time Seen by Provider: 05/28/18 11:30 Primary Care Provider: LILLIAN VEGA FNP-C [Primary Care Provider] - Follow up tomorrow Mode of Arrival: Ambulatory Information source: [facility], [facility] Records Notes: 33-year-old female with no reported past medical history presents with complaint of 1 week of cough, congestion, sore throat and 3 days of chest pain and shortness of breath that is present with coughing only. Patient did take 1 tablet of DayQuil several days ago. Patient denies fever, chills, nausea, vomiting, abdominal pain. She denies sick contacts. She does not smoke. She denies any family history of early cardiac disease. TRAVEL OUTSIDE OF THE [place] IN LAST 30 DAYS: No - HPI Onset: Last week Onset/Duration: Persistent Quality of pain: Achy Severity: Mild Associated symptoms: Body/muscle aches, Chest pain, Productive cough, Shortness of breath, Sore throat, Other - Nasal congestion Exacerbated by: Coughing Relieved by: Denies Similar symptoms previously: Yes Recently seen / treated by doctor: No - Related Data Allergies/Adverse Reactions: No Known Allergies Allergy (Verified 05/28/18 11:27) Past Medical History - General Information source: Patient - Social History Smoking Status: Never Smoker Frequency of alcohol use: None Drug Abuse: None Lives with: Family Family History: Hypertension Patient has suicidal ideation: No Patient has homicidal ideation: No - Past Medical History Cardiac Medical History: Reports: Hx Hypertension - no meds Renal/ Medical History: Denies: Hx Ovarian Cysts, Hx Peritoneal Dialysis GI Medical History: Reports: Hx Gastroesophageal Reflux Disease Musculoskeletal Medical History: Reports Hx Musculoskeletal Trauma Psychiatric Medical History: Denies: Hx Bipolar Disorder, Hx Dementia, Hx Depression Past Surgical History: Reports: Hx Section - Immunizations Immunizations up to date: Yes Hx Diphtheria, Pertussis, Tetanus Vaccination: Yes Review of Systems - Review of Systems Notes: REVIEW OF SYSTEMS: CONSTITUTIONAL : Denies fever, chills, or sweats. Denies recent illness. Denies weight loss, recent hospitalizations. EENT: Denies visual changes, eye pain. Denies sore throat, oral lesions, difficulty swallowing. CARDIOVASCULAR: Denies palpitations. Denies lower extremity edema. RESPIRATORY: + Cough, shortness of breath GASTROINTESTINAL: Denies abdominal pain or distention. Denies nausea, vomiting, or diarrhea. Denies blood in vomitus, stools, or per rectum. Denies black, tarry stools. Denies constipation. GENITOURINARY: Denies difficulty urinating, painful urination, frequency, blood in urine, or vaginal discharge. MUSCULOSKELETAL: Denies back or neck pain or stiffness. Denies joint pain or swelling. SKIN: Denies rash, lesions or sores. HEMATOLOGIC : Denies easy bruising or bleeding. LYMPHATIC: Denies swollen glands. NEUROLOGICAL: Denies confusion or altered mental status. Denies loss of consciousness. Denies dizziness or lightheadedness. Denies headache. Denies weakness or paralysis. Denies problems difficulty with ambulation, slurred speech. Denies sensory loss, numbness, or tingling. Denies seizures. PSYCHIATRIC: Denies anxiety or stress. Denies depression, suicidal ideation, or homicidal ideation. Denies visual or auditory hallucinations. Physical Exam - Vital signs Vitals: Temp Pulse Resp BP Pulse Ox 97.9 F 78 18 145/100 H 98 05/28/18 11:19 05/28/18 11:19 05/28/18 11:19 05/28/18 11:19 05/28/18 11:19 - Notes Notes: PHYSICAL EXAMINATION: GENERAL: Well-appearing, well-nourished and in no acute distress. HEAD: Atraumatic, normocephalic. EYES: Pupils equal round and reactive to light, extraocular movements intact, conjunctiva are normal. ENT: Nares patent, oropharynx clear without exudates. Moist mucous membranes. NECK: Normal range of motion, supple without lymphadenopathy LUNGS: Breath sounds clear to auscultation bilaterally and equal. No wheezes rales or rhonchi. HEART: Regular rate and rhythm without murmurs ABDOMEN: Soft, nontender, nondistended abdomen. No guarding, no rebound. No masses appreciated. Female : deferred Musculoskeletal: Normal range of motion, no pitting or edema. No cyanosis. NEUROLOGICAL: Cranial nerves grossly intact. Normal speech, normal gait. Normal sensory, motor exams PSYCH: Normal mood, normal affect. SKIN: Warm, Dry, normal turgor, no rashes or lesions noted. Course - Re-evaluation Re-evalutation: Laboratory 05/28/18 05/28/18 05/28/18 11:49 11:49 11:49 WBC 4.7 RBC 4.61 Hgb 12.8 Hct 37.5 MCV 81 MCH 27.8 MCHC 34.1 RDW 14.0 Plt Count 251 Seg Neutrophils % 30.6 L Lymphocytes % 57.0 H Monocytes % 9.8 Eosinophils % 2.2 Basophils % 0.4 Absolute Neutrophils 1.5 L Absolute Lymphocytes 2.7 Absolute Monocytes 0.5 Absolute Eosinophils 0.1 Absolute Basophils 0.0 VBG pH VBG pCO2 VBG HCO3 VBG Base Excess Sodium 139.5 Potassium 4.2 Chloride 101 Carbon Dioxide 28 Anion Gap 11 BUN 11 Creatinine 0.75 Est GFR ( Amer) > 60 Est GFR (Non-Af Amer) > 60 Glucose 93 Calcium 10.0 Troponin I < 0.012 NT-Pro-B Natriuret Pep 05/28/18 05/28/18 11:49 12:47 WBC RBC Hgb Hct MCV MCH MCHC RDW Plt Count Seg Neutrophils % Lymphocytes % Monocytes % Eosinophils % Basophils % Absolute Neutrophils Absolute Lymphocytes Absolute Monocytes Absolute Eosinophils Absolute Basophils VBG pH 7.34 VBG pCO2 53.7 VBG HCO3 28.0 VBG Base Excess 1.1 Sodium Potassium Chloride Carbon Dioxide Anion Gap BUN Creatinine Est GFR ( Amer) Est GFR (Non-Af Amer) Glucose Calcium Troponin I NT-Pro-B Natriuret Pep 54 Chest X-Ray 05/28/18 11:36 IMPRESSION: 1. Cardiomegaly and mild prominence of the pulmonary vasculature, suggest vascular congestion. 2. Mild focal parenchymal opacity suggested in the right middle lobe, may represent infiltrate. Temp Pulse Resp BP Pulse Ox 98.2 F 69 18 138/95 H 99 05/28/18 14:01 05/28/18 14:01 05/28/18 14:01 05/28/18 14:01 05/28/18 14:01 33-year-old female with no reported past medical history presents with complaint of 1 week of cough, congestion, sore throat and 3 days of chest pain and shortness of breath that is present with coughing only. Patient did take 1 tablet of DayQuil several days ago. Patient denies fever, chills, nausea, vomiting, abdominal pain. She denies sick contacts. She does not smoke. She denies any family history of early cardiac disease. Vital signs reviewed upon arrival and patient is hypertensive, afebrile, not hypoxic. Patient does not appear toxic or dehydrated. She is in no acute distress. CBC, CMP, BNP, troponin are within normal limits. Chest x-ray does show cardiomegaly with vascular congestion and suspected right middle lobe infiltrate. Patient did receive breathing treatments, doxycycline. Patient has no peripheral edema. I did have a long discussion with the patient regarding her cardiomegaly, uncontrolled hypertension and the need for follow-up immediately with her primary care physician. Patient was discharged home with doxycycline, Norvasc and 7 days of Lasix. 05/28/18 13:[address] message [address] Lew Rodriguez regarding need for immediate follow- up. A message was left. Patient informed that if the office does not contact her that she should contact them immediately. Patient's cardiomegaly, vascular congestion does not require immediate admission but if her blood pressure is not controlled this could lead to heart failure. 05/28/18 20:23 05/28/18 20:29 - Vital Signs Vital signs: Temp Pulse Resp BP Pulse Ox 98.2 F 69 18 138/95 H 99 05/28/18 14:01 05/28/18 14:01 05/28/18 14:01 05/28/18 14:01 05/28/18 14:01 - Laboratory Result Diagrams: 05/28/18 11:49 05/28/18 11:49 Laboratory results interpreted by me: 05/28/18 11:49 Seg Neutrophils % 30.6 L Lymphocytes % 57.0 H Absolute Neutrophils 1.5 L - Diagnostic Test Radiology reviewed: Image reviewed, Reports reviewed - EKG Interpretation by De EKG shows normal: Sinus rhythm Rate: Normal Rhythm: NSR Discharge - Discharge Clinical Impression: Cardiomegaly Hypertension Qualifiers: Hypertension type: unspecified Qualified Code(s): I10 - Essential (primary) hypertension Pneumonia Qualifiers: Pneumonia type: due to unspecified organism Laterality: right Lung location: middle lobe of lung Qualified Code(s): J18.1 - Lobar pneumonia, unspecified organism Condition: Good Disposition: HOME, SELF-CARE Instructions: Congestive Heart Failure ([facility]), High Blood Pressure ([facility]) Additional Instructions: You have been diagnosed with a pneumonia. It is very important that you take all of your antibiotics until they are gone even if you are feeling better. Please return to the emergency department immediately if you began having worsening shortness of breath, become confused, have worsening pain, pass out, have persistent vomiting that prevents you from being able to drink fluids for more than 12 hours, or have any other symptoms that are worrisome to you. Please follow-up with your primary care doctor in the next 1-2 days. Follow up with your [id number] hours for further care or return to the ED IMMEDIATELY if symptoms worsen or you have any concerns. If you cannot afford to follow up with your primary care physician a list of low cost clinics have been provided at the end of your discharge papers as well. Most prescribed medications have multiple side effects. The safest thing to do is when filling your prescription speak to your pharmacist regarding possible interactions with your normal home medications and over the counter medications such as Ibuprofen, Tylenol, Benadryl. If you experience any symptoms that cause you discomfort or concern you should discontinue the medication immediately and return to the emergency room or call your primary care physician. Regarding Blood Pressure: Your blood pressure was noted to be greater than 120/80 at least once in the emergency room today. It is recommended that you follow-up with her primary care physician in the next week for repeat blood pressure check. The Centers for Medicare and Medicaid Services has specific recommendations regarding a person's blood pressure. There are several lifestyle modifications that are recommended in order to help lower your blood pressure. These include: Quitting smoking if you smoke. Reducing the amount of sodium in your diet. Getting regular exercise Limiting alcohol to no more than 2 drinks a day for men and one drink a day for women. Eating a healthy diet, including more fruits and vegetables, low fat dairy products, less saturated and total fat. Losing weight if you are overweight. FOLLOW-UP: Call your doctor's office and let them know your blood pressure was elevated and you were advised to get your blood pressure checked in the above time-line. If you are unable to get into your doctor's office in this time period, you can follow-up with a new physician (I have left the numbers below for a few primary care doctors affiliated with this [facility]) or return to the ER. PRIMARY CARE PHYSICIANS: Dr. Lucila Hsieh [address], [place] [address] [phone] Dr Munroe Address: [address] [place] [address] , [place] [address] Dr Christian Address: [address] [place] [address] , [place] [address] Prescriptions: Amlodipine Besylate [Norvasc 10 mg Tablet] 10 mg PO DAILY #14 tablet RX: Doxycycline Hyclate 100 mg PO BID #14 capsule Furosemide [Lasix 20 mg Tablet] 20 mg PO QAM #7 tablet Forms: Elevated Blood Pressure, Return to Work Referrals: LILLIAN VEGA, DESIGN CELL ENGINEER-C [Primary Care Provider] - Follow up tomorrow
[2018-05-28 11:57] LABS: ABSOLUTE EOSINOPHILS # (AUTO) 0.1 10^3/uL (0.0-0.6); ABSOLUTE LYMPHOCYTES (AUTO) 2.7 10^3/uL (0.5-4.7); ABSOLUTE MONOCYTES (AUTO) 0.5 10^3/uL (0.1-1.4); ABSOLUTE NEUT (AUTO) 1.5 10^3/uL (1.7-8.2); BASOPHILS % (AUTO) 0.4 % (0-2); EOSINOPHILS % (AUTO) 2.2 % (0-6); HEMATOCRIT 37.5 % (36.0-47.0); HEMOGLOBIN 12.8 g/dL (12.0-15.5); MEAN CORPUSCULAR HEMOGLOBIN 27.8 pg (27.0-33.4); MEAN CORPUSCULAR HGB CONC 34.1 g/dL (32.0-36.0); MEAN CORPUSCULAR VOLUME 81 fl (80-97); MONOCYTES % (AUTO) 9.8 % (3-13); PLATELET COUNT 251 10^3/uL (150-450); RED BLOOD COUNT 4.61 10^6/uL (3.72-5.28); SEGMENTED NEUTROPHILS % (AUTO) 30.6 % (42-78); TOTAL CELLS COUNTED % (AUTO) 100 %; WHITE BLOOD COUNT 4.7 10^3/uL (4.0-10.5)
--- NOTE | 2018-05-28 12:07 | RADIOLOGY REPORT (SQ) ---
EXAM DESCRIPTION: CHEST 2 VIEWS COMPLETED DATE/TIME: 05/28/2018 11:54 am REASON FOR STUDY: cough chest pain COMPARISON: None. EXAM PARAMETERS: NUMBER OF VIEWS: two views TECHNIQUE: Digital Frontal and Lateral radiographic views of the chest acquired. RADIATION DOSE: NA LIMITATIONS: none FINDINGS: LUNGS AND PLEURA: Mild parenchymal opacity suggested in the right middle lobe, may repres ent infiltrate. The left lung is clear. No pneumothorax or pleural effusion. MEDIASTINUM AND HILAR STRUCTURES: No masses or contour abnormalities. HEART AND VASCULAR STRUCTURES: Cardiomegaly. Mild prominence of the pulmonary vasculature, suggest vascular congestion. BONES: No acute findings. HARDWARE: None in the chest. OTHER: No other significant finding. IMPRESSION: 1. Cardiomegaly and mild prominence of the pulmonary vasculature, suggest vascular iain estion. 2. Mild focal parenchymal opacity suggested in the right middle lobe, may represent infiltrate. TECHNICAL DOCUMENTATION: JOB ID: [id number] [employer]- All Rights Reserved Reading location - IP/workstation name: [email or web address]
[2018-05-28 12:16] LABS: ANION GAP 11 (5-19); BLOOD UREA NITROGEN 11 mg/dL (7-20); CARBON DIOXIDE 28 mmol/L (22-30); CHLORIDE 101 mmol/L (98-107); GLUCOSE 93 mg/dL (75-110); POTASSIUM 4.2 mmol/L (3.6-5.0); SODIUM 139.5 mmol/L (137-145)
[2018-05-28] MEDS ORDERED: FUROSEMIDE 20 MG TABLET PO ONE (13:17)
[2018-05-28] MEDS ORDERED: DOXYCYCLINE HYCLATE 100 MG TABLET PO ONE (13:17)
[2018-05-28 13:38] LABS: VENOUS BLOOD BASE EXCESS 1.1 mmol/L; VENOUS BLOOD PCO2 53.7 mmHg (35-63); VENOUS BLOOD PH 7.34 (7.30-7.42)
[2018-05-28] MEDS ORDERED: AMLODIPINE BESYLATE 10 MG TABLET PO ONE (13:55)
[2018-05-28 14:03] VITALS: BP 138/95
--- NOTE | 2018-05-28 17:58 | EKG REPORT ---
SEVERITY:- ABNORMAL ECG - SINUS RHYTHM CONSIDER LEFT VENTRICULAR HYPERTROPHY BORDERLINE T ABNORMALITIES, INFERIOR LEADS : Confirmed by: Keegan Low MD 28-May-2018 17:57:57
== END 2018-05-28 14:02 | disposition home or self-care (01) ==
LOC: ER 11:07
DX: I11.9 Hypertensive heart disease without heart failure (principal); J18.1 Lobar pneumonia, unspecified organism; R05 Cough; R06.02 Shortness of breath; R07.9 Chest pain, unspecified; R09.81 Nasal congestion
CPT/HCPCS: 93005; 94640; 99284; 36415; 85025; 80048; 84484; 82803; 83880; 71046; 93010; J3490; J7620

== ENCOUNTER 2018-06-13 11:30 | Emergency (ER) | payer OTHER ==
--- NOTE | 2018-06-13 12:04 | ER Document Report ---
ED Medical Screen (RME) - General Chief Complaint: Cough Stated Complaint: COUGH,CONGESTION,BACK PAIN Time Seen by Provider: 06/13/18 12:00 Primary Care Provider: LILLIAN VEGA FNP-C [Primary Care Provider] - Follow up as needed Notes: Patient is a 33-year-old female with hypertension that presents to the emergency department for chief complaint of cough, congestion and chest pain. Patient reports recently being diagnosed with pneumonia to 3 weeks ago and elevated blood pressure, she is supposed to follow-up with her primary care but is unable to see them for another week, she states she started having pain in the middle of her chest as well as pain over the left shoulder blade, and wanted to have this evaluated. ROS: Other than noted above, the 12 point review of systems was reviewed with the patient and were negative, all pertinent findings are included in the HPI. PHYSICAL EXAMINATION: Vital signs reviewed. GENERAL: Well-appearing, well-nourished and in no acute distress. HEAD: Atraumatic, normocephalic. EYES: Pupils equal round extraocular movements intact, conjunctiva are normal. ENT: Nares patent NECK: Normal range of motion CV: Heart regular rate and rhythm LUNGS: No respiratory distress Musculoskeletal: Normal range of motion NEUROLOGICAL: Normal speech PSYCH: Normal mood, normal affect. MDM: Patient seen and examined for rapid initial assessment. Vital signs reviewed. A comprehensive ED assessment and evaluation of the patient, analysis of test results and completion of the medical decision making process will be conducted by additional ED providers. *Note is created using voice recognition software and may contain spelling, syntax or grammatical errors. - Related Data Allergies/Adverse Reactions: No Known Allergies Allergy (Verified 06/13/18 11:59) Past Medical History - Social History Frequency of alcohol use: None Drug Abuse: None Family history: None - Past Medical History Cardiac Medical History: Reports: Hx Hypertension - no meds Renal/ Medical History: Denies: Hx Ovarian Cysts, Hx Peritoneal Dialysis GI Medical History: Reports: Hx Gastroesophageal Reflux Disease Musculoskeltal Medical History: Reports Hx Musculoskeletal Trauma Psychiatric Medical History: Denies: Hx Bipolar Disorder, Hx Dementia, Hx Depression Past Surgical History: Reports: Hx Section - Immunizations Immunizations up to date: Yes Hx Diphtheria, Pertussis, Tetanus Vaccination: Yes History of Influenza Vaccine for 12/2016 - 05/2017 Season: No Physical Exam - Vital signs Vitals: Temp Pulse Resp BP Pulse Ox 98.1 F 80 18 143/83 H 99 06/13/18 11:36 06/13/18 11:36 06/13/18 11:36 06/13/18 11:36 06/13/18 11:36 Course - Vital Signs Vital signs: Temp Pulse Resp BP Pulse Ox 98.1 F 80 18 143/83 H 99 06/13/18 11:36 06/13/18 11:36 06/13/18 11:36 06/13/18 11:36 06/13/18 11:36 Doctor's Discharge - Discharge Referrals: LILLIAN VEGA, BUTTON TUFTING MACHINE OPERATOR-C [Primary Care Provider] - Follow up as needed
[2018-06-13 12:45] LABS: ABSOLUTE EOSINOPHILS # (AUTO) 0.1 10^3/uL (0.0-0.6); ABSOLUTE MONOCYTES (AUTO) 0.6 10^3/uL (0.1-1.4); ABSOLUTE NEUT (AUTO) 3.3 10^3/uL (1.7-8.2); BASOPHILS % (AUTO) 0.4 % (0-2); HEMATOCRIT 37.9 % (36.0-47.0); HEMOGLOBIN 13.1 g/dL (12.0-15.5); MEAN CORPUSCULAR HEMOGLOBIN 27.9 pg (27.0-33.4); MEAN CORPUSCULAR HGB CONC 34.6 g/dL (32.0-36.0); MEAN CORPUSCULAR VOLUME 81 fl (80-97); MONOCYTES % (AUTO) 8.7 % (3-13); PLATELET COUNT 269 10^3/uL (150-450); RED BLOOD COUNT 4.69 10^6/uL (3.72-5.28); RED CELL DISTRIBUTION WIDTH 14.1 % (11.5-14.0); SEGMENTED NEUTROPHILS % (AUTO) 46.9 % (42-78); TOTAL CELLS COUNTED % (AUTO) 100 %; WHITE BLOOD COUNT 7.1 10^3/uL (4.0-10.5)
--- NOTE | 2018-06-13 12:56 | RADIOLOGY REPORT (SQ) ---
EXAM DESCRIPTION: CHEST 2 VIEWS COMPLETED DATE/TIME: 06/13/2018 12:51 pm REASON FOR STUDY: cough, chest pain COMPARISON: Two-view chest 05/28/2018 EXAM PARAMETERS: NUMBER OF VIEWS: two views TECHNIQUE: Digital Frontal and Lateral radiographic views of the chest acquired. RADIATION DOSE: NA LIMITATIONS: none FINDINGS: LUNGS AND PLEURA: No opacities, masses or pneumothorax. No pleural effusion. MEDIASTINUM AND HILAR STRUCTURES: No masses or contour abnormalities. HEART AND VASCULAR STRUCTURES: Mild cardiomegaly, stable BONES: No acute findings. HARDWARE: None in the chest. OTHER: No other significant finding. IMPRESSION: Mild cardiomegaly. No acute findings TECHNICAL DOCUMENTATION: JOB ID: [id number] [employer]- All Rights Reserved Reading location - IP/workstation name: [email or web address]
[2018-06-13 13:08] LABS: ALANINE AMINOTRANSFERASE 30 U/L (9-52); ALBUMIN 4.3 g/dL (3.5-5.0); ALKALINE PHOSPHATASE 105 U/L (38-126); ANION GAP 8 (5-19); ASPARTATE AMINO TRANSFERASE 28 U/L (14-36); BILIRUBIN,DIRECT 0.3 mg/dL (0.0-0.4); BILIRUBIN,TOTAL 0.4 mg/dL (0.2-1.3); BLOOD UREA NITROGEN 12 mg/dL (7-20); CALCIUM 9.9 mg/dL (8.4-10.2); CARBON DIOXIDE 31 mmol/L (22-30); CHLORIDE 100 mmol/L (98-107); GLUCOSE 93 mg/dL (75-110); TOTAL PROTEIN 8.3 g/dL (6.3-8.2)
--- NOTE | 2018-06-13 16:16 | ER Document Report ---
ED General - General Chief Complaint: Cough Stated Complaint: COUGH,CONGESTION,BACK PAIN Time Seen by Provider: 06/13/18 12:00 Primary Care Provider: MADHU CORTES MD [COMMUNITY BASED STAFF] - Follow up tomorrow Mode of Arrival: Ambulatory Information source: Patient Notes: Patient states she was recently seen in the emergency department about 3 weeks ago and diagnosed with pneumonia. Patient finished her course of antibiotics. Patient reports having anterior chest and right upper back pain that started yesterday around 4 PM. Patient states pain is been constant is worse with coughing or movement of her upper torso. Patient denies any fever. TRAVEL OUTSIDE OF THE [place] IN LAST 30 DAYS: No - HPI Onset: Yesterday Onset/Duration: Persistent Quality of pain: Achy Pain Level: 4 Associated symptoms: Chest pain, Nonproductive cough. denies: Diarrhea, Fever, Headache, Nausea, Vomiting, Shortness of breath Exacerbated by: Movement Relieved by: Remaining still Similar symptoms previously: No Recently seen / treated by doctor: Yes - Related Data Allergies/Adverse Reactions: No Known Allergies Allergy (Verified 06/13/18 11:59) Past Medical History - General Information source: Patient - Social History Smoking Status: Never Smoker Frequency of alcohol use: None Drug Abuse: None Family History: Hypertension Patient has suicidal ideation: No Patient has homicidal ideation: No Renal/ Medical History: Denies: Hx Ovarian Cysts, Hx Peritoneal Dialysis GI Medical History: Reports: Hx Gastroesophageal Reflux Disease Musculoskeletal Medical History: Reports Hx Musculoskeletal Trauma Psychiatric Medical History: Denies: Hx Bipolar Disorder, Hx Dementia, Hx Depression Past Surgical History: Reports: Hx Section - Immunizations Immunizations up to date: Yes Hx Diphtheria, Pertussis, Tetanus Vaccination: Yes Review of Systems - Review of Systems Constitutional: Recent illness - Recently treated for pneumonia 3 weeks ago. denies: Fever EENT: Nose congestion Cardiovascular: Chest pain. denies: Dizziness, Lightheaded Respiratory: Cough. denies: Short of breath Gastrointestinal: No symptoms reported. denies: Abdominal pain, Nausea, Vomiti ng Genitourinary: No symptoms reported. denies: Dysuria Female Genitourinary: No symptoms reported Musculoskeletal: Back pain Skin: No symptoms reported Hematologic/Lymphatic: No symptoms reported Neurological/Psychological: No symptoms reported. denies: Headaches Physical Exam - Vital signs Vitals: Temp Pulse Resp BP Pulse Ox 98.1 F 80 18 143/83 H 99 06/13/18 11:36 06/13/18 11:36 06/13/18 11:36 06/13/18 11:36 06/13/18 11:36 - General General appearance: Appears well, Alert In distress: None - HEENT Head: Normocephalic, Atraumatic Eyes: Normal Conjunctiva: Normal Ears: Normal External canal: Normal Tympanic membrane: Normal Nasal: Normal Mouth/Lips: Normal Mucous membranes: Normal Pharynx: Normal. No: Erythema, Retropharyngeal abscess Neck: Normal, Supple. No: Lymphadenopathy, Meningismus - Respiratory Respiratory status: No respiratory distress Chest status: Nontender Breath sounds: Nonproductive cough. No: Stridor, Wheezing Chest palpation: Tender - Cardiovascular Rhythm: Regular Heart sounds: S1 appreciated, S2 appreciated Murmur: No - Abdominal Inspection: Obese Distension: No distension Bowel sounds: Normal Tenderness: Nontender Organomegaly: No organomegaly - Back Back: Tender - Right upper thoracic back pain reproduced with palpation. No: CVA tenderness - Extremities General upper extremity: Normal inspection, Normal ROM General lower extremity: Normal inspection, Normal ROM. No: Edema - Neurological Neuro grossly intact: Yes Cognition: Normal Cushing Coma Scale Eye Opening: Spontaneous Cushing Coma Scale Verbal: Oriented [place]uy Coma Scale Motor: Obeys Commands Cushing Coma Scale Total: 15 - Psychological Associated symptoms: Normal affect, Normal mood - Skin Skin Temperature: Warm Skin Moisture: Dry Skin Color: Normal Course - Re-evaluation Re-evalutation: 06/13/18 16:16 Patient resting comfortably. Patient denies any pain symptoms at this time. Awaiting results of patient's delta troponin at this time. 06/13/18 17:[address] Barkley regarding patient presentation and diagnostic evaluation today. Reviewed patient's EKG. Agrees with plan to treat for musculoskeletal chest and back pain at this time. Patient with a heart score of 1. The patient has atypical chest pain as the patient's chest pain is not suggestive of pulmonary embolus, cardiac ischemia, aortic dissection, or other serious etiology. Given the extremely low risk of these diagnoses for the test in evaluation for these possibilities does not appear to be indicated at this time. Patient has been instructed to return if the symptoms worsen or change in any way. - Vital Signs Vital signs: Temp Pulse Resp BP Pulse Ox 98.1 F 79 23 H 123/90 H 100 06/13/18 17:47 06/13/18 17:47 06/13/18 17:47 06/13/18 17:47 06/13/18 17:47 - Laboratory Result Diagrams: 06/13/18 12:29 06/13/18 12:29 Laboratory results interpreted by me: 06/13/18 06/13/18 12:29 12:29 RDW 14.1 H Carbon Dioxide 31 H Total Protein 8.3 H 06/13/18 17:19 Reviewed report from previous ER visit 06/13/18 17:19 Labs- Entire Visit 06/13/18 06/13/18 06/13/18 12:29 12:29 12:29 WBC 7.1 RBC 4.69 Hgb 13.1 Hct 37.9 MCV 81 MCH 27.9 MCHC 34.6 RDW 14.1 H Plt Count 269 Seg Neutrophils % 46.9 Lymphocytes % 42.0 Monocytes % 8.7 Eosinophils % 2.0 Basophils % 0.4 Absolute Neutrophils 3.3 Absolute Lymphocytes 3.0 Absolute Monocytes 0.6 Absolute Eosinophils 0.1 Absolute Basophils 0.0 Sodium 139.0 Potassium 4.0 Chloride 100 Carbon Dioxide 31 H Anion Gap 8 BUN 12 Creatinine 0.78 Est GFR ( Amer) > 60 Est GFR (Non-Af Amer) > 60 Glucose 93 Calcium 9.9 Total Bilirubin 0.4 Direct Bilirubin 0.3 Neonat Total Bilirubin Not Reportable Neonat Direct Bilirubin Not Reportable Neonat Indirect Bili Not Reportable AST 28 ALT 30 Alkaline Phosphatase 105 Troponin I < 0.012 NT-Pro-B Natriuret Pep Total Protein 8.3 H Albumin 4.3 06/13/18 06/13/18 12:29 15:59 WBC RBC Hgb Hct MCV MCH MCHC RDW Plt Count Seg Neutrophils % Lymphocytes % Monocytes % Eosinophils % Basophils % Absolute Neutrophils Absolute Lymphocytes Absolute Monocytes Absolute Eosinophils Absolute Basophils Sodium Potassium Chloride Carbon Dioxide Anion Gap BUN Creatinine Est GFR ( Amer) Est GFR (Non-Af Amer) Glucose Calcium Total Bilirubin Direct Bilirubin Neonat Total Bilirubin Neonat Direct Bilirubin Neonat Indirect Bili AST ALT Alkaline Phosphatase Troponin I < 0.012 NT-Pro-B Natriuret Pep 36 Total Protein Albumin - Diagnostic Test Radiology reviewed: Reports reviewed - Reviewed report from previous ER visit - EKG Interpretation by Me EKG shows normal: Sinus rhythm Rate: Normal When compared to previous EKG there are: No significant change Additional EKG results interpreted by me: 06/13/18 17:[address] elevation, QTc 415 Discharge - Discharge Clinical Impression: Chest wall pain Back pain Qualifiers: Back pain location: thoracic back pain Chronicity: unspecified Back pain laterality: unspecified Qualified Code(s): M54.6 - Pain in thoracic spine Condition: Stable Disposition: HOME, SELF-CARE Instructions: Anti-Inflammatory Medication ([facility]), Chest Wall Pain ([facility]), Upper Back Strain ([facility]) Additional Instructions: Return immediately for any new or worsening symptoms Followup with your primary care provider, call tomorrow to make a followup appointment Prescriptions: Cyclobenzaprine HCl [Flexeril 10 Mg Tablet] 10 mg PO TID #15 tablet Naproxen [Naprosyn 250 Nmg Tablet] 1 tab PO BID #14 tablet Referrals: MADHU CORTES MD [COMMUNITY BASED STAFF] - Follow up tomorrow
[2018-06-13 17:48] VITALS: BP 123/90
--- NOTE | 2018-06-13 21:22 | EKG REPORT ---
SEVERITY:- ABNORMAL ECG - SINUS RHYTHM CONSIDER LEFT VENTRICULAR HYPERTROPHY NONSPECIFIC T ABNORMALITIES, INFERIOR LEADS : Confirmed by: Yvette Khan MD 13-Jun-2018 21:22:04
== END 2018-06-13 17:50 | disposition home or self-care (01) ==
LOC: ER 11:30
DX: M54.6 Pain in thoracic spine (principal); R07.89 Other chest pain; R05 Cough; R09.81 Nasal congestion; Z87.01 Personal history of pneumonia (recurrent)
CPT/HCPCS: 36415; 71046; 80053; 83880; 84484; 85025; 93005; 93010; 99284

== ENCOUNTER 2018-08-12 07:44 | Emergency (ER) | payer OTHER ==
--- NOTE | 2018-08-12 09:22 | ER Document Report ---
ED General - General Chief Complaint: Abdominal Pain Stated Complaint: ABDOMINAL PAIN Time Seen by Provider: 08/12/18 08:12 Mode of Arrival: Ambulatory Information source: Patient, [facility], [facility] Records Notes: 33-year-old female with hypertension, since with complaint of lower abdominal pain that has been ongoing for 2 months. Patient states that she is having stabbing intermittent pain currently on the left but she does experience it on the right. She denies any dysuria, hematuria, vaginal discharge, fever, chills, upper abdominal pain, vomiting. Patient's last menstrual period was May 09. Her last sexual encounter was May 2018. She has not taken a test nor does she believe she is . Patient surgical history is a C- section. TRAVEL OUTSIDE OF THE [place] IN LAST 30 DAYS: No - HPI Onset: Other Onset/Duration: Gradual, Intermittent Quality of pain: Stabbing Severity: Mild Associated symptoms: denies: Chest pain, Diarrhea, Fever, Nausea, Vomiting, Shortness of breath Exacerbated by: Denies Relieved by: Denies Similar symptoms previously: Yes Recently seen / treated by doctor: No - Related Data Allergies/Adverse Reactions: No Known Allergies Allergy (Verified 08/12/18 07:46) Past Medical History - General Information source: Patient, [facility], [facility] Records - Social History Smoking Status: Never Smoker Chew tobacco use (# tins/day): No Frequency of alcohol use: None Drug Abuse: None Lives with: Family Family History: Hypertension Patient has suicidal ideation: No Patient has homicidal ideation: No - Past Medical History Cardiac Medical History: Reports: Hx Hypertension - no meds Renal/ Medical History: Denies: Hx Ovarian Cysts, Hx Peritoneal Dialysis GI Medical History: Reports: Hx Gastroesophageal Reflux Disease Musculoskeletal Medical History: Reports Hx Musculoskeletal Trauma Psychiatric Medical History: Denies: Hx Bipolar Disorder, Hx Dementia, Hx Depression Past Surgical History: Reports: Hx Section - Immunizations Immunizations up to date: Yes Hx Diphtheria, Pertussis, Tetanus Vaccination: Yes Review of Systems - Review of Systems Notes: REVIEW OF SYSTEMS: CONSTITUTIONAL : Denies fever, chills, or sweats. Denies recent illness. Denies weight loss, recent hospitalizations. EENT: Denies visual changes, eye pain. Denies sore throat, oral lesions, difficulty swallowing. CARDIOVASCULAR: Denies chest pain. Denies palpitations. Denies lower extremity edema. RESPIRATORY: Denies cough. Denies shortness of breath, wheezing. GASTROINTESTINAL: Denies abdominal distention. Denies nausea, vomiting, or diarrhea. Denies blood in vomitus, stools, or per rectum. Denies black, tarry stools. Denies constipation. GENITOURINARY: Denies difficulty urinating, painful urination, frequency, blood in urine, or vaginal discharge. MUSCULOSKELETAL: Denies back or neck pain or stiffness. Denies joint pain or swelling. SKIN: Denies rash, lesions or sores. HEMATOLOGIC : Denies easy bruising or bleeding. LYMPHATIC: Denies swollen glands. NEUROLOGICAL: Denies confusion or altered mental status. Denies loss of consciousness. Denies dizziness or lightheadedness. Denies headache. Denies weakness or paralysis. Denies problems difficulty with ambulation, slurred speech. Denies sensory loss, numbness, or tingling. Denies seizures. PSYCHIATRIC: Denies anxiety or stress. Denies depression, suicidal ideation, or homicidal ideation. Denies visual or auditory hallucinations. Physical Exam - Vital signs Vitals: Temp Pulse Resp BP Pulse Ox 99.1 F 78 18 139/94 H 98 08/12/18 07:48 08/12/18 07:48 08/12/18 07:48 08/12/18 07:48 08/12/18 07:48 - Notes Notes: PHYSICAL EXAMINATION: GENERAL: Well-appearing, well-nourished and in no acute distress. HEAD: Atraumatic, normocephalic. EYES: Pupils equal round and reactive to light, extraocular movements intact, conjunctiva are normal. ENT: Nares patent, oropharynx clear without exudates. Moist mucous membranes. NECK: Normal range of motion, supple without lymphadenopathy LUNGS: Breath sounds clear to auscultation bilaterally and equal. No wheezes rales or rhonchi. HEART: Regular rate and rhythm without murmurs ABDOMEN: Soft, nontender, nondistended abdomen. No guarding, no rebound. No masses appreciated. Female : Pelvic exam; External genitalia unremarkable. Speculum exam with no discharge. Vaginal wall unremarkable. Os closed. No cervical motion tenderness. No adnexal tenderness or masses appreciated. Swabs obtained for g onorrhea, chlamydia and wet prep. Musculoskeletal: Normal range of motion, no pitting or edema. No cyanosis. NEUROLOGICAL: Cranial nerves grossly intact. Normal speech, normal gait. Normal sensory, motor exams PSYCH: Normal mood, normal affect. SKIN: Warm, Dry, normal turgor, no rashes or lesions noted. Course - Re-evaluation Re-evalutation: 08/13/18 23:14 Laboratory 08/12/18 08/12/18 08/12/18 08:45 08:45 08:51 WBC 7.5 RBC 4.71 Hgb 12.9 Hct 38.4 MCV 82 MCH 27.4 MCHC 33.6 RDW 14.1 H Plt Count 269 Seg Neutrophils % 50.9 Lymphocytes % 38.9 Monocytes % 8.0 Eosinophils % 1.9 Basophils % 0.3 Absolute Neutrophils 3.8 Absolute Lymphocytes 2.9 Absolute Monocytes 0.6 Absolute Eosinophils 0.1 Absolute Basophils 0.0 Sodium Potassium Chloride Carbon Dioxide Anion Gap BUN Creatinine Est GFR ( Amer) Est GFR (Non-Af Amer) Glucose Calcium Total Bilirubin Direct Bilirubin Neonat Total Bilirubin Neonat Direct Bilirubin Neonat Indirect Bili AST ALT Alkaline Phosphatase Total Protein Albumin Lipase Beta HCG, Quant Total Beta HCG Urine Color YELLOW Urine Appearance CLEAR Urine pH 5.0 Ur Specific [place] 1.013 Urine Protein NEGATIVE Urine Glucose (UA) NEGATIVE Urine Ketones NEGATIVE Urine Blood NEGATIVE Urine Nitrite NEGATIVE Urine Bilirubin NEGATIVE Urine Urobilinogen NEGATIVE Ur Leukocyte Esterase NEGATIVE Urine WBC (Auto) 0 Urine RBC (Auto) 1 Squamous Epi Cells Auto 1 Urine Mucus (Auto) RARE Urine Ascorbic Acid NEGATIVE Urine HCG, Qual NEGATIVE Epi Cells (Wet Prep) Bacteria (Wet Prep) Trichomonas (Wet Prep) Vaginal WBC Vaginal RBC Vaginal Yeast Chlamydia DNA (PCR) N.gonorrhoeae DNA (PCR) 08/12/18 08/12/18 08/12/18 08:51 09:16 09:16 WBC RBC Hgb Hct MCV MCH MCHC RDW Plt Count Seg Neutrophils % Lymphocytes % Monocytes % Eosinophils % Basophils % Absolute Neutrophils Absolute Lymphocytes Absolute Monocytes Absolute Eosinophils Absolute Basophils Sodium 143.2 Potassium 4.5 Chloride 104 Carbon Dioxide 27 Anion Gap 12 BUN 13 Creatinine 0.75 Est GFR ( Amer) > 60 Est GFR (Non-Af Amer) > 60 Glucose 116 H Calcium 9.6 Total Bilirubin 0.4 Direct Bilirubin 0.2 Neonat Total Bilirubin Not Reportable Neonat Direct Bilirubin Not Reportable Neonat Indirect Bili Not Reportable AST 24 ALT 27 Alkaline Phosphatase 120 Total Protein 8.1 Albumin 4.4 Lipase 95.8 Beta HCG, Quant < 2.39 Total Beta HCG NEGATIVE Urine Color Urine Appearance Urine pH Ur Specific [place] Urine Protein Urine Glucose (UA) Urine Ketones Urine Blood Urine Nitrite Urine Bilirubin Urine Urobilinogen Ur Leukocyte Esterase Urine WBC (Auto) Urine RBC (Auto) Squamous Epi Cells Auto Urine Mucus (Auto) Urine Ascorbic Acid Urine HCG, Qual Epi Cells (Wet Prep) 3+ EPITHELIALS SEEN Bacteria (Wet Prep) 3+ BACTERIA SEEN Trichomonas (Wet Prep) NO TRICHOMONAS SEEN Vaginal WBC FEW WBCS SEEN Vaginal RBC FEW RBCS SEEN Vaginal Yeast NO YEAST SEEN Chlamydia DNA (PCR) NOT DETECTED N.gonorrhoeae DNA (PCR) NOT DETECTED Transvaginal US 08/12/18 10:36 IMPRESSION: NORMAL TRANSVAGINAL PELVIC ULTRASOUND. Temp Pulse Resp BP Pulse Ox 97.7 F 78 18 123/88 H 100 08/12/18 12:01 08/12/18 07:48 08/12/18 07:48 08/12/18 12:01 08/12/18 12:01 08/13/18 23:15 33-year-old female with hypertension, since with complaint of lower abdominal pain that has been ongoing for 2 months. Signs reviewed and within normal limits. Patient does not appear toxic or dehydrated. She is in no acute distress. Patient has a benign abdominal exam. No significant findings on pelvic exam. He is without symptoms. CMP shows no electrolyte abnormalities. Urinalysis not consistent with infection. Consistent with bacterial vaginosis. Transvaginal ultrasound was normal. Patient prescribed Flagyl. Patient was evaluated and treated as appropriate for the patient's presenting symptoms and complaint, with consideration of any critical or life threatening conditions that may be associated with their obtained history and exam as noted above. All results were discussed with patient. Patient provided the opportunity to ask questions, and express concerns. Patient was educated on treatments based on their presumed diagnosis as noted above. At this time we will discharge the patient with return precautions and follow-up recommendations. Verbal discharge instructions given a the bedside. Medication warnings reviewed. Patient is in agreement with this plan and has verbalized understanding of return precautions. After careful consideration I feel that that patient can be safely discharged from the emergency department, they were advised to followup with a primary care physician in 2-3 days. Dictation on this chart was performed using voice recognition software and may result in unintended grammatical, spelling, syntax or errors. - Vital Signs Vital signs: Temp Pulse Resp BP Pulse Ox 97.7 F 78 18 123/88 H 100 08/12/18 12:01 08/12/18 07:48 08/12/18 07:48 08/12/18 12:01 08/12/18 12:01 - Laboratory Result Diagrams: 08/12/18 08:51 08/12/18 08:51 Laboratory results interpreted by me: 08/12/18 08/12/18 08:51 08:51 RDW 14.1 H Glucose 116 H Discharge - Discharge Clinical Impression: Lower abdominal pain, Bacterial vaginitis Condition: Good Disposition: HOME, SELF-CARE Instructions: Abdominal Pain ([facility]) Additional Instructions: You are being treated for bacterial vaginosis, an overgrowth of normal bacteria in the vagina. You are being sent home on an antibiotic called metronidazole. Take exactly as directed. Never drink alcohol while taking this antibiotic. Please return if you develop abdominal pain, fever greater than 101F, some vomiting, or any other symptoms that are concerning to you. Prescriptions: Metronidazole [Flagyl 500 mg Tablet] 500 mg PO BID 14 Days #21 tablet Ondansetron [Zofran Odt 4 mg Tablet] 1 - 2 tab PO Q4H PRN #15 tab.rapdis PRN Reason: For Nausea/Vomiting Forms: Elevated Blood Pressure
[2018-08-12 09:29] LABS: ABSOLUTE EOSINOPHILS # (AUTO) 0.1 10^3/uL (0.0-0.6); ABSOLUTE LYMPHOCYTES (AUTO) 2.9 10^3/uL (0.5-4.7); ABSOLUTE MONOCYTES (AUTO) 0.6 10^3/uL (0.1-1.4); ABSOLUTE NEUT (AUTO) 3.8 10^3/uL (1.7-8.2); BASOPHILS % (AUTO) 0.3 % (0-2); EOSINOPHILS % (AUTO) 1.9 % (0-6); HEMATOCRIT 38.4 % (36.0-47.0); HEMOGLOBIN 12.9 g/dL (12.0-15.5); LYMPHOCYTES % (AUTO) 38.9 % (13-45); MEAN CORPUSCULAR HEMOGLOBIN 27.4 pg (27.0-33.4); MEAN CORPUSCULAR HGB CONC 33.6 g/dL (32.0-36.0); MEAN CORPUSCULAR VOLUME 82 fl (80-97); PLATELET COUNT 269 10^3/uL (150-450); RED BLOOD COUNT 4.71 10^6/uL (3.72-5.28); RED CELL DISTRIBUTION WIDTH 14.1 % (11.5-14.0); SEGMENTED NEUTROPHILS % (AUTO) 50.9 % (42-78); TOTAL CELLS COUNTED % (AUTO) 100 %; WHITE BLOOD COUNT 7.5 10^3/uL (4.0-10.5)
[2018-08-12 09:40] LABS: APPEARANCE,URINE CLEAR; BILIRUBIN,URINE NEGATIVE (NEGATIVE); COLOR,URINE YELLOW; GLUCOSE, URINE NEGATIVE (NEGATIVE); KETONES,URINE NEGATIVE (NEGATIVE); LEUKOCYTE ESTERASE,URINE NEGATIVE (NEGATIVE); NITRITE,URINE NEGATIVE (NEGATIVE); PROTEIN,URINE NEGATIVE (NEGATIVE); URINE SPECIFIC GRAVITY 1.013; UROBILINOGEN,URINE NEGATIVE mg/dL (<2.0)
[2018-08-12 09:42] LABS: ALANINE AMINOTRANSFERASE 27 U/L (9-52); ALBUMIN 4.4 g/dL (3.5-5.0); ALKALINE PHOSPHATASE 120 U/L (38-126); ANION GAP 12 (5-19); ASPARTATE AMINO TRANSFERASE 24 U/L (14-36); BILIRUBIN,DIRECT 0.2 mg/dL (0.0-0.4); BILIRUBIN,TOTAL 0.4 mg/dL (0.2-1.3); BLOOD UREA NITROGEN 13 mg/dL (7-20); CALCIUM 9.6 mg/dL (8.4-10.2); CARBON DIOXIDE 27 mmol/L (22-30); CHLORIDE 104 mmol/L (98-107); GLUCOSE 116 mg/dL (75-110); LIPASE 95.8 U/L (23-300); POTASSIUM 4.5 mmol/L (3.6-5.0); SODIUM 143.2 mmol/L (137-145); TOTAL PROTEIN 8.1 g/dL (6.3-8.2)
[2018-08-12 09:55] LABS: T.VAGINALIS (WET MOUNT) NO TRICHOMONAS SEEN; YEAST (WET MOUNT) NO YEAST SEEN
[2018-08-12 09:56] LABS: BACTERIA (WET MOUNT) 3+ BACTERIA SEEN; EPITHELIALS (WET MOUNT) 3+ EPITHELIALS SEEN; RBCS (WET MOUNT) FEW RBCS SEEN; WBCS (WET MOUNT) FEW WBCS SEEN
[2018-08-12 11:28] LABS: CHLAM PCR NOT DETECTED (NOT DETECT); GON PCR NOT DETECTED (NOT DETECT)
--- NOTE | 2018-08-12 11:36 | RADIOLOGY REPORT (SQ) ---
EXAM DESCRIPTION: U/S NON OB PEL TV W/DOPPLER COMPLETED DATE/TIME: 08/12/2018 11:11 am REASON FOR STUDY: llq pain COMPARISON: None. TECHNIQUE: Dynamic and static grayscale images acquired of the pelvis via transvaginal approach and recorded on PACS. Additional selected color Doppler and spectral images recorded. LIMITATIONS: None. FINDINGS: UTERUS: Contour normal. No mass. ENDOMETRIAL STRIPE: No focal or generalized thickening. No masses. CERVIX: No nabothian cysts. RIGHT OVARY AND DOPPLER: Normal size. No worrisome masses. Normal arterial vascular flow without evid ence for torsion. LEFT OVARY AND DOPPLER: Normal size. No worrisome masses. Normal arterial vascular flow without evide nce for torsion. FREE FLUID: None noted. OTHER: No other significant finding. IMPRESSION: NORMAL TRANSVAGINAL PELVIC ULTRASOUND. TECHNICAL DOCUMENTATION: JOB ID: [id number] [employer]- All Rights Reserved Rev-08/04 Reading location - IP/workstation name: [email or web address]
[2018-08-12 12:31] VITALS: BP 123/88
== END 2018-08-12 12:30 | disposition home or self-care (01) ==
LOC: ER 07:44
DX: N76.0 Acute vaginitis (principal); B96.89 Other specified bacterial agents as the cause of diseases classified elsewhere; R10.30 Lower abdominal pain, unspecified
CPT/HCPCS: 36415; 76830; 80053; 81001; 81025; 83690; 84702; 85025; 87210; 87491; 87591; 93976; 99284

== ENCOUNTER 2018-10-09 15:53 | Emergency (ER) | payer OTHER ==
--- NOTE | 2018-10-09 17:30 | ER Document Report ---
ED Medical Screen (RME) - General Chief Complaint: Abdominal Pain Stated Complaint: LOWER ABDOMINAL PAIN Time Seen by Provider: 10/09/18 17:27 Mode of Arrival: Ambulatory Information source: Patient Notes: Patient is a 33-year-old female who presents to the ER today for lower abdominal pain. Patient states that she feels like her menstrual cycle should be coming on but it does not. She has not had a menstrual cycle since April 2018. She has not seen her C PROGRAMMER about this. Patient denies any burning with urination, nausea or vomiting, back pain. TRAVEL OUTSIDE OF THE [place] IN LAST 30 DAYS: No - Related Data Allergies/Adverse Reactions: No Known Allergies Allergy (Verified 10/09/18 15:54) Past Medical History - General Information source: Patient - Social History Family history: None - Past Medical History Cardiac Medical History: Reports: Hx Hypertension - no meds Renal/ Medical History: Denies: Hx Ovarian Cysts, Hx Peritoneal Dialysis GI Medical History: Reports: Hx Gastroesophageal Reflux Disease Musculoskeltal Medical History: Reports Hx Musculoskeletal Trauma Psychiatric Medical History: Denies: Hx Bipolar Disorder, Hx Dementia, Hx Depression Past Surgical History: Reports: Hx Section - Immunizations Immunizations up to date: Yes Hx Diphtheria, Pertussis, Tetanus Vaccination: Yes History of Influenza Vaccine for 12/2016 - 05/2017 Season: No Review of Systems - Review of Systems Gastrointestinal: See HPI Female Genitourinary: See HPI Physical Exam - Vital signs Vitals: Temp Pulse Resp BP Pulse Ox 98.2 F 102 H 12 142/89 H 99 10/09/18 16:10 10/09/18 16:10 10/09/18 16:10 10/09/18 16:10 10/09/18 16:10 - Notes Notes: PHYSICAL EXAMINATION: GENERAL: Well-appearing and in no acute distress. ABDOMEN: Soft, no tenderness. No guarding, no rebound Course - Vital Signs Vital signs: Temp Pulse Resp BP Pulse Ox 98.2 F 102 H 12 142/89 H 99 10/09/18 16:10 10/09/18 16:10 10/09/18 16:10 10/09/18 16:10 10/09/18 16:10
[2018-10-09 18:06] LABS: ABSOLUTE BASOPHILS # (AUTO) 0.1 10^3/uL (0.0-0.2); ABSOLUTE EOSINOPHILS # (AUTO) 0.2 10^3/uL (0.0-0.6); ABSOLUTE LYMPHOCYTES (AUTO) 3.2 10^3/uL (0.5-4.7); ABSOLUTE MONOCYTES (AUTO) 0.7 10^3/uL (0.1-1.4); ABSOLUTE NEUT (AUTO) 4.5 10^3/uL (1.7-8.2); BASOPHILS % (AUTO) 0.8 % (0-2); EOSINOPHILS % (AUTO) 1.9 % (0-6); HEMATOCRIT 38.7 % (36.0-47.0); HEMOGLOBIN 12.8 g/dL (12.0-15.5); LYMPHOCYTES % (AUTO) 37.1 % (13-45); MEAN CORPUSCULAR HEMOGLOBIN 27.5 pg (27.0-33.4); MEAN CORPUSCULAR HGB CONC 33.1 g/dL (32.0-36.0); MEAN CORPUSCULAR VOLUME 83 fl (80-97); MONOCYTES % (AUTO) 7.7 % (3-13); PLATELET COUNT 255 10^3/uL (150-450); RED BLOOD COUNT 4.67 10^6/uL (3.72-5.28); SEGMENTED NEUTROPHILS % (AUTO) 52.5 % (42-78); TOTAL CELLS COUNTED % (AUTO) 100 %; WHITE BLOOD COUNT 8.5 10^3/uL (4.0-10.5)
[2018-10-09 18:31] LABS: ALANINE AMINOTRANSFERASE 21 U/L (9-52); ALBUMIN 4.4 g/dL (3.5-5.0); ALKALINE PHOSPHATASE 136 U/L (38-126); ANION GAP 13 (5-19); ASPARTATE AMINO TRANSFERASE 24 U/L (14-36); BILIRUBIN,DIRECT 0.2 mg/dL (0.0-0.4); BILIRUBIN,TOTAL 0.3 mg/dL (0.2-1.3); BLOOD UREA NITROGEN 12 mg/dL (7-20); CALCIUM 9.6 mg/dL (8.4-10.2); CARBON DIOXIDE 26 mmol/L (22-30); CHLORIDE 102 mmol/L (98-107); GLUCOSE 210 mg/dL (75-110); POTASSIUM 4.1 mmol/L (3.6-5.0); TOTAL PROTEIN 8.1 g/dL (6.3-8.2)
[2018-10-09 18:40] LABS: APPEARANCE,URINE SLIGHTLY-CLOUDY; BILIRUBIN,URINE NEGATIVE (NEGATIVE); COLOR,URINE YELLOW; GLUCOSE, URINE >=500 mg/dL (NEGATIVE); KETONES,URINE NEGATIVE (NEGATIVE); LEUKOCYTE ESTERASE,URINE NEGATIVE (NEGATIVE); NITRITE,URINE NEGATIVE (NEGATIVE); PROTEIN,URINE NEGATIVE (NEGATIVE); URINE SPECIFIC GRAVITY 1.014; UROBILINOGEN,URINE NEGATIVE mg/dL (<2.0)
--- NOTE | 2018-10-09 20:49 | ER Document Report ---
ED General - General Chief Complaint: Abdominal Pain Stated Complaint: LOWER ABDOMINAL PAIN Time Seen by Provider: 10/09/18 17:27 Mode of Arrival: Ambulatory Information source: Patient Notes: Patient is a 33-year-old female who presents to the ER today for lower abdominal pain. Patient states that she feels like her menstrual cycle should be coming on but it does not. She has not had a menstrual cycle since April 2018. She has not seen her [facility] about this. Patient denies any burning with urination, nausea or vomiting, back pain. TRAVEL OUTSIDE OF THE [place] IN LAST 30 DAYS: No - Related Data Allergies/Adverse Reactions: No Known Allergies Allergy (Verified 10/09/18 15:54) Past Medical History - General Information source: Patient - Social History Smoking Status: Never Smoker Chew tobacco use (# tins/day): No Frequency of alcohol use: None Drug Abuse: None Family History: Hypertension Patient has suicidal ideation: No Patient has homicidal ideation: No - Past Medical History Cardiac Medical History: Reports: Hx Hypertension - no meds Renal/ Medical History: Denies: Hx Ovarian Cysts, Hx Peritoneal Dialysis GI Medical History: Reports: Hx Gastroesophageal Reflux Disease Musculoskeletal Medical History: Reports Hx Musculoskeletal Trauma Psychiatric Medical History: Denies: Hx Bipolar Disorder, Hx Dementia, Hx Depression Past Surgical History: Reports: Hx Section - Immunizations Immunizations up to date: Yes Hx Diphtheria, Pertussis, Tetanus Vaccination: Yes Review of Systems - Review of Systems Constitutional: No symptoms reported EENT: No symptoms reported Cardiovascular: No symptoms reported Respiratory: No symptoms reported Gastrointestinal: See HPI Genitourinary: No symptoms reported Female Genitourinary: See HPI Musculoskeletal: No symptoms reported Skin: No symptoms reported Hematologic/Lymphatic: No symptoms reported Neurological/Psychological: No symptoms reported Physical Exam - Vital signs Vitals: Temp Pulse Resp BP Pulse Ox 98.2 F 102 H 12 142/89 H 99 10/09/18 16:10 10/09/18 16:10 10/09/18 16:10 10/09/18 16:10 10/09/18 16:10 - Notes Notes: PHYSICAL EXAMINATION: GENERAL: Well-appearing and in no acute distress. HEAD: Atraumatic, normocephalic. EYES: Pupils equal round and reactive to light, extraocular movements intact, sclera anicteric, conjunctiva are normal. He chest pain NECK: Normal range of motion, supple without lymphadenopathy LUNGS: CTAB and equal. No wheezes rales or rhonchi. HEART: Regular rate and rhythm without murmurs ABDOMEN: Soft, no tenderness. No guarding, no rebound BACK: no vertebral tenderness, normal ROM GI/: no CVA tenderness EXTREMITIES: Normal range of motion, no pitting edema. No cyanosis. NEUROLOGICAL: Cranial nerves grossly intact. Normal sensory/motor exams. PSYCH: Normal mood, normal affect. SKIN: Warm, Dry, normal turgor, no rashes or lesions noted Course - Re-evaluation Re-evalutation: 10/09/18 20:48 Lab work all unremarkable today, urinalysis negative for infection, patient given OB follow-up. - Vital Signs Vital signs: Temp Pulse Resp BP Pulse Ox 98.2 F 102 H 12 142/89 H 99 10/09/18 16:10 10/09/18 16:10 10/09/18 16:10 10/09/18 16:10 10/09/18 16:10 - Laboratory Result Diagrams: 10/09/18 17:45 10/09/18 17:45 Laboratory results interpreted by me: 10/09/18 10/09/18 17:40 17:45 Glucose 210 H Alkaline Phosphatase 136 H Urine Glucose (UA) >=500 H Urine Ascorbic Acid 40 H Discharge - Discharge Clinical Impression: Pelvic pain Condition: Stable Disposition: HOME, SELF-CARE Additional Instructions: Return immediately for any new or worsening symptoms. Follow up with [facility], call tomorrow to make followup appointment. Prescriptions: Ibuprofen [Motrin 600 Mg Tablet] 600 mg PO TID #15 tablet Referrals: JOSE L GRAHAM DO [ACTIVE STAFF] - Follow up as needed
[2018-10-09 21:10] VITALS: BP 135/78
== END 2018-10-09 21:11 | disposition home or self-care (01) ==
LOC: ER 15:53
DX: R10.2 Pelvic and perineal pain (principal); I10 Essential (primary) hypertension
CPT/HCPCS: 36415; 80053; 81001; 83690; 85025; 99284

== ENCOUNTER 2018-12-09 09:56 | Emergency (ER) | payer OTHER ==
[2018-12-09 10:49] LABS: ABSOLUTE EOSINOPHILS # (AUTO) 0.1 10^3/uL (0.0-0.6); ABSOLUTE LYMPHOCYTES (AUTO) 2.7 10^3/uL (0.5-4.7); ABSOLUTE MONOCYTES (AUTO) 0.5 10^3/uL (0.1-1.4); ABSOLUTE NEUT (AUTO) 2.8 10^3/uL (1.7-8.2); BASOPHILS % (AUTO) 0.8 % (0-2); EOSINOPHILS % (AUTO) 1.5 % (0-6); HEMATOCRIT 38.7 % (36.0-47.0); HEMOGLOBIN 13.2 g/dL (12.0-15.5); LYMPHOCYTES % (AUTO) 43.9 % (13-45); MEAN CORPUSCULAR HEMOGLOBIN 27.6 pg (27.0-33.4); MEAN CORPUSCULAR VOLUME 81 fl (80-97); MONOCYTES % (AUTO) 8.3 % (3-13); PLATELET COUNT 257 10^3/uL (150-450); RED BLOOD COUNT 4.77 10^6/uL (3.72-5.28); RED CELL DISTRIBUTION WIDTH 14.4 % (11.5-14.0); SEGMENTED NEUTROPHILS % (AUTO) 45.5 % (42-78); TOTAL CELLS COUNTED % (AUTO) 100 %; WHITE BLOOD COUNT 6.2 10^3/uL (4.0-10.5)
[2018-12-09 10:52] LABS: APPEARANCE,URINE SLIGHTLY-CLOUDY; BILIRUBIN,URINE NEGATIVE (NEGATIVE); COLOR,URINE YELLOW; GLUCOSE, URINE NEGATIVE (NEGATIVE); KETONES,URINE NEGATIVE (NEGATIVE); LEUKOCYTE ESTERASE,URINE NEGATIVE (NEGATIVE); NITRITE,URINE NEGATIVE (NEGATIVE); PROTEIN,URINE NEGATIVE (NEGATIVE); URINE SPECIFIC GRAVITY 1.012; UROBILINOGEN,URINE NEGATIVE mg/dL (<2.0)
[2018-12-09 11:07] LABS: ALBUMIN 4.3 g/dL (3.5-5.0); ALKALINE PHOSPHATASE 103 U/L (38-126); ANION GAP 9 (5-19); ASPARTATE AMINO TRANSFERASE 24 U/L (14-36); BILIRUBIN,DIRECT 0.2 mg/dL (0.0-0.4); BILIRUBIN,TOTAL 0.4 mg/dL (0.2-1.3); BLOOD UREA NITROGEN 13 mg/dL (7-20); CALCIUM 9.8 mg/dL (8.4-10.2); CARBON DIOXIDE 30 mmol/L (22-30); CHLORIDE 100 mmol/L (98-107); GLUCOSE 125 mg/dL (75-110); POTASSIUM 4.1 mmol/L (3.6-5.0); TOTAL PROTEIN 7.7 g/dL (6.3-8.2)
--- NOTE | 2018-12-09 11:24 | ER Document Report ---
ED GI/ - General Chief Complaint: Abdominal Pain Stated Complaint: BACK PAIN,ABDOMINAL PAIN,NAUSEA Time Seen by Provider: 12/09/18 11:02 Notes: 33 female presents to the emergency department with chief complaint of vaginal spotting and lower abdominal pain off and on for several months. Patient states her LMP was March 2018 and periods of severe lower back pain and lower abdominal pain followed by spotting which relieves her symptoms. She has been seen here for the same issue and has been referred to specialist out in town where she states she had a complete work-up and was told that it was "hormonal". Patient denies any fevers, chills, acute shortness of breath or chest pain, nausea or vomiting, denies constipation or diarrhea, denies any foul-smelling abnormal vaginal discharge. No other complaints TRAVEL OUTSIDE OF THE [place] IN LAST 30 DAYS: No - Related Data Allergies/Adverse Reactions: No Known Allergies Allergy (Verified 12/09/18 10:02) Past Medical History - Social History Smoking Status: Never Smoker Drug Abuse: None Family History: Hypertension Patient has suicidal ideation: No Patient has homicidal ideation: No - Past Medical History Cardiac Medical History: Reports: Hx Hypertension - no meds Renal/ Medical History: Denies: Hx Ovarian Cysts, Hx Peritoneal Dialysis GI Medical History: Reports: Hx Gastroesophageal Reflux Disease Musculoskeletal Medical History: Reports Hx Musculoskeletal Trauma Psychiatric Medical History: Denies: Hx Bipolar Disorder, Hx Dementia, Hx Depression Past Surgical History: Reports: Hx Section - Immunizations Immunizations up to date: Yes Hx Diphtheria, Pertussis, Tetanus Vaccination: Yes Review of Systems - Review of Systems Constitutional: See HPI EENT: No symptoms reported Cardiovascular: See HPI Respiratory: See HPI Gastrointestinal: See HPI Genitourinary: See HPI Female Genitourinary: See HPI Musculoskeletal: No symptoms reported Skin: No symptoms reported Hematologic/Lymphatic: No symptoms reported Neurological/Psychological: No symptoms reported Physical Exam - Vital signs Vitals: Temp Pulse Resp BP Pulse Ox 98.3 F 71 15 130/85 H 100 12/09/18 10:04 12/09/18 10:04 12/09/18 10:04 12/09/18 10:04 12/09/18 10:04 - Notes Notes: PHYSICAL EXAMINATION: Reviewed vital signs and charting by RN GENERAL: Alert, interacts well. No acute distress. HEAD: Normocephalic, atraumatic. EYES: Pupils equal and round. Extraocular movements intact. ENT: Oral mucosa moist, tongue midline. NECK: Full range of motion. Trachea midline. LUNGS: Clear to auscultation bilaterally, no wheezes, rales, or rhonchi. No respiratory distress. HEART: Regular rate and rhythm. No murmur ABDOMEN: soft, non-tender. No distention. Bowel sounds present EXTREMITIES: Moves all 4 extremities spontaneously. No edema, No cyanosis. PSYCH: Normal affect, normal mood. SKIN: Warm, dry, normal turgor. No rashes or lesions noted. Course - Re-evaluation Re-evalutation: 12/09/18 12:17 Patient presents with persistent pelvic pain worse prior to spotting. Patient has been worked up extensively per her and was told it had to do with her hormone cycle. Ultrasound was performed which did not show any evidence of ovarian torsion or infectious etiology. Lab work all within normal limits. Urinalysis was contaminated but did not show significant WBCs. Patient declined a pelvic exam at this time today. Patient does not have any abnormal vaginal discharge or any infectious symptoms to point towards a bacterial vaginosis or STI. I reassured patient and she needs to follow-up with [facility]. She agrees with the plan stable for discharge. - Vital Signs Vital signs: Temp Pulse Resp BP Pulse Ox 98.3 F 71 15 130/85 H 100 12/09/18 10:04 12/09/18 10:04 12/09/18 10:04 12/09/18 10:04 12/09/18 10:04 - Laboratory Result Diagrams: 12/09/18 10:30 12/09/18 10:30 Laboratory results interpreted by me: 12/09/18 12/09/18 12/09/18 10:30 10:30 10:30 RDW 14.4 H Glucose 125 H Urine Blood LARGE H Discharge - Discharge Clinical Impression: Vaginal spotting, Pelvic pain Condition: Good Disposition: HOME, SELF-CARE Additional Instructions: You have been seen in the Emergency Department (ED) for abdominal pain. Your evaluation did not identify a clear cause of your symptoms but was generally reassuring. Please follow up with your doctor as soon as possible regarding today's emergent visit and the symptoms that are bothering you. Return to the ED if your abdominal pain worsens or fails to improve, you develop bloody vomiting, bloody diarrhea, you are unable to tolerate fluids due to vomiting, fever greater than 101, or other symptoms that concern you. Referrals: KARTHIK CAGE MD [ACTIVE STAFF] - Follow up as needed
--- NOTE | 2018-12-09 12:09 | RADIOLOGY REPORT (SQ) ---
EXAM DESCRIPTION: U/S NON OB PEL W/DOPPLER COMPLETED DATE/TIME: 12/09/2018 11:56 am REASON FOR STUDY: B lower abd pain COMPARISON: Pelvic ultrasound 08/12/2018 TECHNIQUE: Dynamic and static grayscale images acquired of the pelvis via transabdominal approach an d recorded on PACS. Additional selected color Doppler and spectral images recorded. LIMITATIONS: None. FINDINGS: UTERUS: Contour normal. No mass. Uterus is 9 x 5 x 4 cm in size ENDOMETRIAL STRIPE: No focal or generalized thickening. No masses. Endometrium 7 to 8 mm thickness CERVIX: Closed, 4 cm in length. RIGHT OVARY AND DOPPLER: Normal size, 3.9 x 2.8 x 2.2 cm. No worrisome masses. Normal arterial vascul ar flow without evidence for torsion. LEFT OVARY AND DOPPLER: Normal size, 7.5 x 2.5 x 2.2 cm. No worrisome masses. Normal arterial vascula r flow without evidence for torsion. FREE FLUID: None noted. OTHER: No other significant finding. IMPRESSION: NORMAL PELVIC ULTRASOUND BY TRANSABDOMINAL TECHNIQUE. TECHNICAL DOCUMENTATION: JOB ID: [id number] [employer]- All Rights Reserved Rev-08/04 Reading location - IP/workstation name: [email or web address]
[2018-12-09 12:42] VITALS: BP 129/83
== END 2018-12-09 12:42 | disposition home or self-care (01) ==
LOC: ER 09:56
DX: R10.2 Pelvic and perineal pain (principal); R39.89 Other symptoms and signs involving the genitourinary system; M54.5 Low back pain; I10 Essential (primary) hypertension
CPT/HCPCS: 36415; 76856; 80053; 81001; 81025; 83690; 85025; 93976; 99284

== ENCOUNTER 2019-05-26 15:13 | Emergency (ER) | payer OTHER ==
--- NOTE | 2019-05-26 16:01 | RADIOLOGY REPORT (SQ) ---
EXAM DESCRIPTION: CHEST 2 VIEWS COMPLETED DATE/TIME: 05/26/2019 2:44 pm REASON FOR STUDY: chest pain back pain COMPARISON: 06/13/2018 EXAM PARAMETERS: NUMBER OF VIEWS: two views TECHNIQUE: Digital Frontal and Lateral radiographic views of the chest acquired. RADIATION DOSE: NA LIMITATIONS: none FINDINGS: LUNGS AND PLEURA: No opacities, masses or pneumothorax. No pleural effusion. MEDIASTINUM AND HILAR STRUCTURES: No masses or contour abnormalities. HEART AND VASCULAR STRUCTURES: Heart normal size. No evidence for failure. BONES: No acute findings. HARDWARE: None in the chest. OTHER: No other significant finding. IMPRESSION: NO ACUTE RADIOGRAPHIC FINDING IN THE CHEST. TECHNICAL DOCUMENTATION: JOB ID: [id number] [employer]- All Rights Reserved Reading location - IP/workstation name: [email or web address]
--- NOTE | 2019-05-26 16:12 | EKG REPORT ---
SEVERITY:- ABNORMAL ECG - SINUS RHYTHM PROBABLE LEFT ATRIAL ABNORMALITY LEFT VENTRICULAR HYPERTROPHY BORDERLINE T ABNORMALITIES, INFERIOR LEADS : Confirmed by: Keegan Low MD 26-May-2019 16:11:56
--- NOTE | 2019-05-26 16:33 | ER Document Report ---
HPI - HPI Patient complains to provider of: Nausea headache chest pain back pain Time Seen by Provider: 05/26/19 15:19 Onset: Other - Off and on for couple months. Pain Level: 0 Context: 34-year-old female presents with her son for complaints of nausea chest pain on and off for couple months with back pain. Denies fever vomiting diarrhea. Denies cough. History of cardiac disease. Denies family history of cardiac disease. Reports she had this same feeling when she had pneumonia couple years ago. She denies cough at this time. Reports she has been eating drinking voiding bowel movement is normal. Associated Symptoms: Headache Exacerbated by: Denies Relieved by: Denies Similar symptoms previously: Yes Recently seen / treated by doctor: No - REPRODUCTIVE Reproductive: DENIES: : Past Medical History - General Information source: Patient Last Menstrual Period: March-irregular menses - Social History Smoking Status: Never Smoker Chew tobacco use (# tins/day): No Frequency of alcohol use: None Drug Abuse: None Lives with: Family Family History: Hypertension Patient has suicidal ideation: No Patient has homicidal ideation: No - Past Medical History Cardiac Medical History: Reports: Hx Hypertension - no meds Renal/ Medical History: Denies: Hx Ovarian Cysts, Hx Peritoneal Dialysis GI Medical History: Reports: Hx Gastroesophageal Reflux Disease Musculoskeletal Medical History: Reports Hx Musculoskeletal Trauma Psychiatric Medical History: Denies: Hx Bipolar Disorder, Hx Dementia, Hx Depression Past Surgical History: Reports: Hx Section - Immunizations Immunizations up to date: Yes Hx Diphtheria, Pertussis, Tetanus Vaccination: Yes Vertical Provider Document - CONSTITUTIONAL Agree With Documented VS: Yes Exam Limitations: No Limitations General Appearance: WD/WN, No Apparent Distress - INFECTION CONTROL TRAVEL OUTSIDE OF THE [place] IN LAST 30 DAYS: No - HEENT HEENT: Atraumatic, Normocephalic. negative: Conjuctival Injection - NECK Neck: Normal Inspection, Supple. negative: Lymphadenopathy-Left, Lymphadenopathy-Right - RESPIRATORY Respiratory: Breath Sounds Normal, No Respiratory Distress, Chest Non-Tender - CARDIOVASCULAR Cardiovascular: Regular Rate, Regular Rhythm - GI/ABDOMEN Gastrointestinal: Abdomen Soft, Abdomen Non-Tender - MUSCULOSKELETAL/EXTREMETIES Musculoskeletal/Extremeties: MAEW, FROM - NEURO Level of Consciousness: Awake, Alert, Appropriate Motor/Sensory: No Motor Deficit - DERM Integumentary: Warm, Dry, No Rash Course - Re-evaluation Re-evalutation: 05/26/19 16:31 34-year-old female presents with chest pain that comes and goes for the past couple months. Reports she had the same pain when she had pneumonia in the past. She denies fever and coughing this time. Patient is smiling laughing no distress. Also complains of nausea in the morning but denies . Chest X-Ray 05/26/19 15:28 IMPRESSION: NO ACUTE RADIOGRAPHIC FINDING IN THE CHEST. Chest x-ray negative. EKG no change from the last time she was here. UA negative. Respiratory rate even unlabored. Patient calm watching TV no distress nontoxic looking. Patient instructed on all results. Instructed on the importance of follow-up with cardiology for evaluation. She was also instructed to follow-up with her primary care provider for recheck within 1 week. She verbalized understanding. - Vital Signs Vital signs: Temp Pulse Resp BP Pulse Ox 98.2 F 77 18 142/94 H 100 05/26/19 15:18 05/26/19 15:18 05/26/19 15:18 05/26/19 15:18 05/26/19 15:18 - Diagnostic Test Radiology reviewed: Image reviewed, Reports reviewed - EKG Interpretation by Mi EKG shows normal: Sinus rhythm Rate: Normal When compared to previous EKG there are: No significant change Additional EKG results interpreted by me: 05/26/19 17:[address] elevation no T wave inversion Discharge - Discharge Clinical Impression: Nausea Chest pain Qualifiers: Chest pain type: unspecified Qualified Code(s): R07.9 - Chest pain, unspecified Back pain Qualifiers: Back pain location: thoracic back pain Chronicity: unspecified Back pain laterality: unspecified Qualified Code(s): M54.6 - Pain in thoracic spine Condition: Stable Disposition: HOME, SELF-CARE Instructions: Antinausea Medication ([facility]), Headache ([facility]) Additional Instructions: *You have been evaluated for you, chest pain, back pain *Your chest x-ray was negative for acute pneumonia. *Monitor your temperature, take Tylenol as indicated *Follow up with a primary care provider 1 week for recheck *Return to ED for increasing fever, cough, worsening condition, changes, needs Monitor your blood pressure. Your blood pressure was elevated today. This may be because you were anxious, in pain or because you need medication. It is important to follow up with your primary care provider for full evaluation. Forms: Elevated Blood Pressure
[2019-05-26 16:45] LABS: APPEARANCE,URINE SLIGHTLY-CLOUDY; BILIRUBIN,URINE NEGATIVE (NEGATIVE); COLOR,URINE YELLOW; GLUCOSE, URINE NEGATIVE (NEGATIVE); KETONES,URINE NEGATIVE (NEGATIVE); LEUKOCYTE ESTERASE,URINE NEGATIVE (NEGATIVE); NITRITE,URINE NEGATIVE (NEGATIVE); PROTEIN,URINE NEGATIVE (NEGATIVE); URINE SPECIFIC GRAVITY 1.013; UROBILINOGEN,URINE NEGATIVE mg/dL (<2.0)
[2019-05-26 17:33] VITALS: BP 136/62
== END 2019-05-26 17:33 | disposition home or self-care (01) ==
LOC: ER 15:13
DX: R07.9 Chest pain, unspecified (principal); R11.0 Nausea; M54.6 Pain in thoracic spine; R51 Headache; N92.6 Irregular menstruation, unspecified; I10 Essential (primary) hypertension; Z87.01 Personal history of pneumonia (recurrent)
CPT/HCPCS: 71046; 81001; 81025; 93005; 93010; 99284

== ENCOUNTER 2019-11-26 08:48 | Emergency (ER) | payer OTHER ==
[2019-11-26] MEDS ORDERED: IBUPROFEN 800 MG TABLET PO ONE (09:14)
[2019-11-26] MEDS ORDERED: NORMAL SALINE 1000 ML 1,000 ML IV ONE (09:14)
--- NOTE | 2019-11-26 09:17 | ER Document Report ---
ED General - General Chief Complaint: Abdominal Pain Stated Complaint: RIGHT SIDE PAIN Time Seen by Provider: 11/26/19 09:05 Primary Care Provider: [facility] [Provider Group] - Follow up as needed Mode of Arrival: Ambulatory Information source: Patient Notes: Patient presents complaining of right lateral side pain for the past 2 weeks is been off and on. Patient states pain is presently resolved. Patient also complains of headache pain to the back of her neck that radiates around to the frontal area that has been off and on for 5 days and is presently gone as well. Patient denies any cough or cold symptoms. Patient denies any nausea vomiting or diarrhea. Patient denies any urinary symptoms. She reports irregular menses. TRAVEL OUTSIDE OF THE [place] IN LAST 30 DAYS: No - HPI Onset: Other - 2 weeks Onset/Duration: Waxing and waning Severity: Mild Pain Level: Denies Associated symptoms: denies: Chest pain, Nonproductive cough, Productive cough, Diarrhea, Fever, Nausea, Vomiting, Shortness of breath Exacerbated by: Denies Relieved by: Other - Tylenol Similar symptoms previously: No Recently seen / treated by doctor: No - Related Data Allergies/Adverse Reactions: No Known Allergies Allergy (Verified 12/09/18 10:02) Past Medical History - General Information source: Patient - Social History Smoking Status: Never Smoker Frequency of alcohol use: None Drug Abuse: None Occupation: None Family History: Hypertension - Past Medical History Cardiac Medical History: Reports: Hx Hypertension - no meds Renal/ Medical History: Denies: Hx Ovarian Cysts, Hx Peritoneal Dialysis GI Medical History: Reports: Hx Gastroesophageal Reflux Disease Musculoskeletal Medical History: Reports Hx Musculoskeletal Trauma Psychiatric Medical History: Denies: Hx Bipolar Disorder, Hx Dementia, Hx Depression Past Surgical History: Reports: Hx Section - Immunizations Immunizations up to date: Yes Hx Diphtheria, Pertussis, Tetanus Vaccination: Yes Review of Systems - Review of Systems Constitutional: No symptoms reported. denies: Fever EENT: No symptoms reported Cardiovascular: No symptoms reported. denies: Chest pain Respiratory: No symptoms reported. denies: Cough, Short of breath Gastrointestinal: Abdominal pain - Right lateral side pain. denies: Diarrhea, Nausea, Vomiting Genitourinary: No symptoms reported. denies: Dysuria, Flank pain Female Genitourinary: No symptoms reported Musculoskeletal: No symptoms reported Skin: No symptoms reported. denies: Rash Hematologic/Lymphatic: No symptoms reported Neurological/Psychological: Headaches Physical Exam - Vital signs Vitals: Temp Pulse Resp BP Pulse Ox 100.4 F 109 H 16 152/104 H 98 11/26/19 08:53 11/26/19 08:53 11/26/19 08:53 11/26/19 08:53 11/26/19 08:53 - Notes Notes: PHYSICAL EXAMINATION: GENERAL: Well-appearing and in no acute distress. HEAD: Atraumatic, normocephalic. EYES: Pupils equal round and reactive to light, extraocular movements intact, sclera anicteric, conjunctiva are normal. ENT: nares patent, oropharynx clear without exudates. Moist mucous membranes. NECK: Normal range of motion, supple without lymphadenopathy, no meningismus LUNGS: CTAB and equal. No wheezes rales or rhonchi. HEART: Regular rate and rhythm without murmurs ABDOMEN: Soft, no tenderness. No guarding, no rebound EXTREMITIES: Normal range of motion, no pitting edema. No cyanosis. BACK: No midline tenderness, no step-off or deformity. No CVA tenderness NEUROLOGICAL: Cranial nerves grossly intact. Normal speech. Normal gait. PSYCH: Normal mood, normal affect. SKIN: Warm, Dry, normal turgor, no rashes or lesions noted Course - Re-evaluation Re-evalutation: 11/26/19 11:48 Patient reports that headache pain is resolved at this time. Patient denies any side pain. The patient presents with headache without signs of GAS METER CHECKER bleed, stroke, infection, or other serious etiology. The patient is neurologically int act. Given the extremely low risk of these diagnoses further testing and evaluation for these possibilities does not appear to be indicated at this time. The patient was evaluated during the global Covid 19 pandemic, and that diagnosis was suspected/considered upon their initial presentation. Their evaluation, treatment and testing was consistent with current guidelines for patients who present with complaints or symptoms that may be related to Covid 19. Patient presents with symptoms worrisome for possible Covid 19. Patient does not have emergency worrying symptoms such as difficulty breathing, shortness of breath, chest pain, pressure, confusion or cyanosis. Patient appears suitable for discharge as they are not of an advanced age, do not have any chronic medical conditions such as diabetes, CAD, immune deficiency, chronic lung disease or chronic kidney disease. Patient's vital signs are stable and patient is nontoxic in appearance. Good return precautions have been discussed with patient, patient verbalized understanding and is agreeable with discharge plan of care at this time. - Vital Signs Vital signs: Temp Pulse Resp BP Pulse Ox 98.6 F 77 20 145/93 H 98 11/26/19 11:51 11/26/19 11:51 11/26/19 11:51 11/26/19 11:51 11/26/19 11:51 - Laboratory Result Diagrams: 11/26/19 09:47 11/26/19 09:47 Laboratory results interpreted by me: 11/26/19 11/26/19 11/26/19 09:47 09:47 10:53 WBC 3.8 L Seg Neuts % (Manual) 41 L Band Neutrophils % 1 L Monocytes % (Manual) 14 H Abs Neuts (Manual) 1.6 L Glucose 159 H Direct Bilirubin 0.6 H AST 83 H ALT 83 H Urine Protein 30 H Labs- All tests 24 hr 11/26/19 11/26/19 11/26/19 09:47 09:47 09:47 WBC 3.8 L RBC 5.04 Hgb 13.9 Hct 40.3 MCV 80 MCH 27.6 MCHC 34.5 RDW 13.8 Plt Count 185 Lymph % (Auto) Not Reportable [place] % (Auto) Not Reportable Eos % (Auto) Not Reportable Baso % (Auto) Not Reportable Absolute Neuts (auto) Not Reportable Absolute Lymphs (auto) Not Reportable Absolute Monos (auto) Not Reportable Absolute Eos (auto) Not Reportable Absolute Basos (auto) Not Reportable Total Counted 100 Seg Neutrophils % Not Reportable Seg Neuts % (Manual) 41 L Band Neutrophils % 1 L Lymphocytes % (Manual) 40 Atypical Lymphs % 3 Monocytes % (Manual) 14 H Eosinophils % (Manual) 0 Basophils % (Manual) 0 Metamyelocytes % 1 Abs Neuts (Manual) 1.6 L Abs Lymphs (Manual) 1.6 Abs Monocytes (Manual) 0.5 Absolute Eos (Manual) 0.0 Abs Basophils (Manual) 0.0 Toxic Vacuolation PRESENT Platelet Comment ADEQUATE RBC Morph Comment NORMO-CYTIC/CHROMIC Sodium 138.1 Potassium 4.2 Chloride 99 Carbon Dioxide 28 Anion Gap 11 BUN 11 Creatinine 0.80 Est GFR ( Amer) > 60 Est GFR (MDRD) Non-Af > 60 Glucose 159 H Calcium 9.4 Total Bilirubin 0.9 Direct Bilirubin 0.6 H Neonat Total Bilirubin Not Reportable Neonat Direct Bilirubin Not Reportable Neonat Indirect Bili Not Reportable AST 83 H ALT 83 H Alkaline Phosphatase 99 Total Protein 8.0 Albumin 4.3 Lipase 67.7 Serum HCG, Qual NEGATIVE Urine Color Urine Appearance Urine pH Ur Specific [place] Urine Protein Urine Glucose (UA) Urine Ketones Urine Blood Urine Nitrite Urine Bilirubin Urine Urobilinogen Ur Leukocyte Esterase Urine WBC (Auto) Urine RBC (Auto) U Hyaline Cast (Auto) Squamous Epi Cells Auto Urine Mucus (Auto) Urine Ascorbic Acid 11/26/19 10:53 WBC RBC Hgb Hct MCV MCH MCHC RDW Plt Count Lymph % (Auto) [place] % (Auto) Eos % (Auto) Baso % (Auto) Absolute Neuts (auto) Absolute Lymphs (auto) Absolute Monos (auto) Absolute Eos (auto) Absolute Basos (auto) Total Counted Seg Neutrophils % Seg Neuts % (Manual) Band Neutrophils % Lymphocytes % (Manual) Atypical Lymphs % Monocytes % (Manual) Eosinophils % (Manual) Basophils % (Manual) Metamyelocytes % Abs Neuts (Manual) Abs Lymphs (Manual) Abs Monocytes (Manual) Absolute Eos (Manual) Abs Basophils (Manual) Toxic Vacuolation Platelet Comment RBC Morph Comment Sodium Potassium Chloride Carbon Dioxide Anion Gap BUN Creatinine Est GFR ( Amer) Est GFR (MDRD) Non-Af Glucose Calcium Total Bilirubin Direct Bilirubin Neonat Total Bilirubin Neonat Direct Bilirubin Neonat Indirect Bili AST ALT Alkaline Phosphatase Total Protein Albumin Lipase Serum HCG, Qual Urine Color YELLOW Urine Appearance SLIGHTLY-CLOUDY Urine pH 5.0 Ur Specific [place] 1.017 Urine Protein 30 H Urine Glucose (UA) NEGATIVE Urine Ketones NEGATIVE Urine Blood NEGATIVE Urine Nitrite NEGATIVE Urine Bilirubin NEGATIVE Urine Urobilinogen NEGATIVE Ur Leukocyte Esterase NEGATIVE Urine WBC (Auto) 2 Urine RBC (Auto) 1 U Hyaline Cast (Auto) 6 Squamous Epi Cells Auto 14 Urine Mucus (Auto) OCC Urine Ascorbic Acid NEGATIVE Discharge - Discharge Clinical Impression: Abnormal liver function test, Encounter for screening laboratory testing for COVID-19 virus, Side pain Headache Qualifiers: Headache type: unspecified Headache chronicity pattern: unspecified pattern Intractability: not intractable Qualified Code(s): R51 - Headache Condition: Stable Disposition: HOME, SELF-CARE Instructions: COVID-19 Guidance for Persons Under Investigation, Abdominal Pain ([facility]), Acetaminophen, Fever ([facility]), Headache ([facility]), Use of [id number] Ibuprofen ([facility]), Liver Function Abnormality ([facility]) Additional Instructions: Return immediately for any new or worsening symptoms Followup with your primary care provider, call tomorrow to make a followup appointment Your liver function tests were mildly elevated today. Follow-up with your primary doctor to have these repeated. Limit any alcohol use until you are cleared by your doctor. Referrals: [facility] [Provider Group] - Follow up as needed
[2019-11-26 10:06] LABS: HEMATOCRIT 40.3 % (36.0-47.0); HEMOGLOBIN 13.9 g/dL (12.0-15.5); MEAN CORPUSCULAR HEMOGLOBIN 27.6 pg (27.0-33.4); MEAN CORPUSCULAR HGB CONC 34.5 g/dL (32.0-36.0); MEAN CORPUSCULAR VOLUME 80 fl (80-97); PLATELET COUNT 185 10^3/uL (150-450); RED BLOOD COUNT 5.04 10^6/uL (3.72-5.28); RED CELL DISTRIBUTION WIDTH 13.8 % (11.5-14.0); WHITE BLOOD COUNT 3.8 10^3/uL (4.0-10.5)
--- NOTE | 2019-11-26 10:09 | RADIOLOGY REPORT (SQ) ---
EXAM DESCRIPTION: CHEST SINGLE VIEW IMAGES COMPLETED DATE/TIME: 11/26/2019 9:49 am REASON FOR STUDY: R side pain COMPARISON: 05/26/2019 NUMBER OF VIEWS: One view. TECHNIQUE: Single frontal radiographic view of the chest acquired. LIMITATIONS: None. FINDINGS: LUNGS AND PLEURA: No opacities, masses or pneumothorax. No pleural effusion. MEDIASTINUM AND HILAR STRUCTURES: No masses. Contour normal. HEART AND VASCULAR STRUCTURES: Heart normal in size. Normal vasculature. BONES: No acute findings. HARDWARE: None in the chest. OTHER: No other significant finding. IMPRESSION: NO SIGNIFICANT RADIOGRAPHIC FINDING IN THE CHEST. TECHNICAL DOCUMENTATION: JOB ID: [id number] 2010 [employer]- All Rights Reserved Reading location - IP/workstation name: [email or web address]
--- NOTE | 2019-11-26 10:20 | RADIOLOGY REPORT (SQ) ---
EXAM DESCRIPTION: U/S ABDOMEN LIMITED W/O DOP IMAGES COMPLETED DATE/TIME: 11/26/2019 10:11 am REASON FOR STUDY: R upper side pain COMPARISON: 03/02/2016 TECHNIQUE: Dynamic and static grayscale images acquired of the abdomen and recorded on PACS. Additio nal selected color Doppler and spectral images recorded. LIMITATIONS: None. FINDINGS: PANCREAS: No masses. Visualized pancreatic duct normal caliber. LIVER: The liver is echogenic consistent with steatosis. Mild hepatomegaly. No focal lesions. LIVER VASCULATURE: Normal directional flow of the main portal vein and hepatic veins. GALLBLADDER: No stones. Normal wall thickness. No pericholecystic fluid. ULTRASOUND-DETECTED MENDEZ'S SIGN: Negative. INTRAHEPATIC DUCTS AND COMMON DUCT: CBD and intrahepatic ducts normal caliber. No filling defects. AORTA: No aneurysm. RIGHT KIDNEY: Normal size. Normal echogenicity. No solid or suspicious masses. No hydronephrosis. No calcifications. PERITONEAL AND RIGHT PLEURAL SPACE: No ascites or effusions. OTHER: No other significant findings. IMPRESSION: Hepatic steatosis with mild hepatomegaly. TECHNICAL DOCUMENTATION: JOB ID: [id number] [employer]- All Rights Reserved Reading location - IP/workstation name: [email or web address]
[2019-11-26 10:23] LABS: ALBUMIN 4.3 g/dL (3.5-5.0); ALKALINE PHOSPHATASE 99 U/L (38-126); ANION GAP 11 (5-19); ASPARTATE AMINO TRANSFERASE 83 U/L (14-36); BILIRUBIN,DIRECT 0.6 mg/dL (0.0-0.4); BILIRUBIN,TOTAL 0.9 mg/dL (0.2-1.3); BLOOD UREA NITROGEN 11 mg/dL (7-20); CALCIUM 9.4 mg/dL (8.4-10.2); CARBON DIOXIDE 28 mmol/L (22-30); CHLORIDE 99 mmol/L (98-107); GLUCOSE 159 mg/dL (75-110); POTASSIUM 4.2 mmol/L (3.6-5.0)
[2019-11-26 10:35] LABS: ABSOLUTE LYMPHOCYTES# (MANUAL) 1.6 10^3/uL (0.5-4.7); ABSOLUTE MONOCYTES # (MANUAL) 0.5 10^3/uL (0.1-1.4); BAND NEUTROPHILS % (MANUAL) 1 % (3-5); BASOPHILS % (MANUAL) 0 % (0-2); EOSINOPHILS % (MANUAL) 0 % (0-6); LYMPHOCYTES % (MANUAL) 40 % (13-45); METAMYELOCYTES % (MANUAL) 1 % (0-1); MONOCYTES % (MANUAL) 14 % (3-13); SEGMENTED NEUTROPHILS % (MAN) 41 % (42-78); TOTAL CELLS COUNTED 100
[2019-11-26 10:36] LABS: PLATELET COMMENT ADEQUATE
[2019-11-26 10:37] LABS: RBC MORPHOLOGY COMMENT NORMO-CYTIC/CHROMIC; TOXIC VACUOLATION PRESENT
[2019-11-26 11:22] LABS: APPEARANCE,URINE SLIGHTLY-CLOUDY; BILIRUBIN,URINE NEGATIVE (NEGATIVE); COLOR,URINE YELLOW; GLUCOSE, URINE NEGATIVE (NEGATIVE); KETONES,URINE NEGATIVE (NEGATIVE); LEUKOCYTE ESTERASE,URINE NEGATIVE (NEGATIVE); NITRITE,URINE NEGATIVE (NEGATIVE); PROTEIN,URINE 30 mg/dL (NEGATIVE); URINE SPECIFIC GRAVITY 1.017; UROBILINOGEN,URINE NEGATIVE mg/dL (<2.0)
[2019-11-26 11:52] VITALS: BP 145/93
== END 2019-11-26 11:58 | disposition home or self-care (01) ==
LOC: ER 08:48
DX: R51 Headache (principal); R10.9 Unspecified abdominal pain; K76.0 Fatty (change of) liver, not elsewhere classified; Z20.828 Contact with and (suspected) exposure to other viral communicable diseases; R79.89 Other specified abnormal findings of blood chemistry; I10 Essential (primary) hypertension; Z87.19 Personal history of other diseases of the digestive system
CPT/HCPCS: 99285; 96360; 36415; 83690; 84703; 85025; 87635; 80053; 81001; 71045; 76705; J7030; C9803